=== PATIENT | male | born 1955 | race Caucasian/White ===

== ENCOUNTER 2018-06-10 13:03 | Inpatient (IN) ==
--- NOTE | 2018-06-10 13:24 | Emergency Department Note ---
Disposition Clinical Impression: Atrial fibrillation with rapid ventricular response, Pulmonary edema Congestive heart failure Qualifiers: Heart failure type: unspecified Heart failure chronicity: unspecified Qualified Code(s): I50.9 - Heart failure, unspecified Ascites Qualifiers: Ascites type: other type Qualified Code(s): R18.8 - Other ascites Hepatic cirrhosis Qualifiers: Hepatic cirrhosis type: other cirrhosis Qualified Code(s): K74.69 - Other cirrhosis of liver Disposition: Admitted As Inpatient Condition: Fair Referrals: Chhaya Avila CNP [Primary Care Provider] - Forms: ED Satisfaction Letter Time of Disposition: 15:02 General Adult HPI - General Chief complaint: ED Shortness of Breath/Dyspnea Stated complaint: Fluid retention,SHERWIN Time Seen by Provider: 06/10/18 13:17 Nursing Notes Reviewed: Yes Vital Signs Reviewed: Yes - History of Present Illness HPI Narrative: The patient is a 62 year old male with history of CHF, atrial fibrillation, and COPD who presented with shortness of breath. He also has dry cough for 3 weeks, abdominal swelling, bilateral scrotal swelling, and bilateral lower extremity swelling. The patient stated 4 weeks ago he noticed increased shortness of breath and diffuse swelling that improved after receiving medication through an IV. For the past week he noticed return of his shortness of breath and diffuse swelling with acute worsening the past few days. He called his PCP 3 days ago who doubled his home Lasix medication but this has not improved his symptoms. He takes Eliquis due to atrial fibrillation. He also reported diffuse itching and some confusion recently. He denied orthopnea, chest pain, fever, chills, vomiting, hemoptysis, hematochezia, melena, history of DVT or PE. He has had 2 strokes in the past and has a history of sleep apnea not compliant with CPAP use. Denied cardiac stents and previous catheterization was normal. Denied liver problems or renal problems. He is on 2L oxygen by nasal cannula at home. He is a current everyday smoker. He did not use his nebulizer today. PMH: A. Fib anticoagulated on Eliquis. CVA with no chronic deficit. [place]APARRO noncompliant with CPAP. CAD with ACS, no stents. COPD with chronic respiratory failure on 2L NC continuous and home nebs. Habits: Current everyday smoker. 35yr history: appx 33yrs at 2ppd, 2-3yrs at 1/ 2ppd. ROS: Positive: As above Negative: Fever, chills, nausea, vomiting, chest pains, palpitations, diaphoresis. No history of hepatic disease. No diarrhea, constipation, melena , hematochezia, hemoptysis. Pain Scale: 0 - Related Data Allergies Allergy/AdvReac Type Severity Reaction Status Date / Time No Known Allergies Allergy Verified 05/21/17 08:11 All systems ED: reviewed and negative except as stated. Review of Systems: As Per HPI Physical Exam Vital Signs Reviewed General: Patient is alert, oriented, and in mild distress-he is tachycardic, appears to be in mild respiratory distress.. Head: atraumatic, normocephalic Eye: normal appearance, no scleral icterus, no conjunctival injection ENT: mucous membranes moist, normal external ear exam Neck: normal inspection, trachea midline, full ROM Chest: normal inspection, symmetric chest rise Respiratory: Poor respiratory effort. Prolonged expiratory phase. Bilateral breath sounds are diminished right greater than left, diffuse quiet wheeze throughout. No crackles or rhonchi. Cardiovascular: Regular rate and rhythm. No clicks, rubs, gallops, or murmors. Normal heart sounds. Abdomen: Bowel sounds present normoactive. Abdomen is tense, distended, nontender. Abdominal palpation worsens his dyspnea. Musculoskeletal: Spontaneously moving all extremities. Skin: warm, dry, intact. Neuro: Alert and oriented x4. Sensation light touch intact. Psych: Patient's affect is appropriate for situation. Course Course Narrative: Echocardiogram 03/04/18: EV/EV echocardiogram Impressions: LVEF 40-45%. Many LV segment were not well visualized. Grossly, LV function appeared to demosntrate mild global hypokinesis. Mild concentric left ventricular hypertrophy. Indeterminate diastolic function. Right ventricle was not well visualized. Grossly, it demonstrates normal function. No evidence of pulmonary hypertension identified. No obvious significant valvular dysfunction. Future studies should be completed with contrast enhancement. RUQ US 06/02/18: US/US abdomen limited IMPRESSION: 1. Cholelithiasis. No clear evidence for acute cholecystitis. 2. Moderate volume ascites. 3. Splenomegaly. Patient is A. fib RVR with a rate of 160s to 170s. Will give 15 mg Cardizem bolus followed by drip. Will CT abdomen pelvis without contrast. Chest x-ray. Lab workup. Anticipate admission. EKG shows atrial for relation with RVR. Rate of 159. No apparent acute ischemic changes however this is obscured by the patient's tachycardic rate. Will attempt rate control and reassess. Cardizem 15mg IV bolus with follow-up drip. Chest x-ray is consistent with pulmonary edema likely secondary to CHF. Will provide Lasix 40 mg IV. We will hold on vasodilators at this time given he is currently on Cardizem for A. fib RVR. Discussed the patient with the admitting hospitalist, Dr. Nicolas, who excessive patient for A. fib RVR, CHF, pulmonary edema, cirrhosis, ascites. We discussed the patient will likely need IR paracentesis. No concern for SBP at this time. Patient is afebrile. EKG dated 06/10/2018 at 13:27 interpreted as atrial fibrillation with rapid ventricular rate; rate of 159. QTC 472. Right axis. Nonspecific ST-T changes. Compared to previous EKG dated 08/01/2011 which was sinus rhythm. Chest X-Ray 06/10/18 13:30 IMPRESSION: Cardiomegaly with interstitial edema. D/ / Gi Zhang MD / Gi Zhang MD Interpreting Provider: Gi Zhang MD Abdomen/Pelvis CT 06/10/18 13:38 IMPRESSION: 1. Small bilateral pleural effusions with lower lobe atelectasis. 2. Ascites. 3. Cirrhosis with splenomegaly. Portal hypertension. 4. Diverticulosis. D/ / Fernando Cook MD / Fernando Cook MD Interpreting Provider: Fernando Cook MD Vital Signs Temperature 99.4 F 06/10/18 13:16 Pulse Rate 88 06/10/18 13:16 Respiratory Rate 22 06/10/18 13:16 Blood Pressure 136/84 06/10/18 13:16 O2 Sat by Pulse Oximetry 87 06/10/18 13:16 Temperature 99.4 F 09/13/18 13:23 Pulse Rate 122 06/10/18 14:15 Respiratory Rate 24 06/10/18 14:15 Blood Pressure 139/109 06/10/18 14:15 O2 Sat by Pulse Oximetry 92 06/10/18 14:15 Oxygen Delivery Oxygen Delivery Nasal Cannula Medical Decision Making - Lab Data Result diagrams: 06/10/18 14:01 06/10/18 14:01 Lab Results 06/10/18 06/10/18 06/10/18 Range/Units 14:01 14:01 14:01 WBC 7.7 (4.3-11.1) K/mcL RBC 6.50 H (4.19-5.50) M/mcL Hgb 15.5 (12.9-16.9) g/dL Hct 52.8 H (37.5-50.1) % MCV 81.2 L (83.0-100.0) fL MCH 23.8 L (28.0-33.3) pg MCHC 29.4 L (31.6-35.5) g/dL RDW 19.7 H (11.5-14.5) % Plt Count 163 (140-400) K/mcL MPV 11.6 (9.4-12.4) fL Immature Gran % 0.3 (0-4) % Seg Neutrophils % 70.3 % Lymphocytes % 14.5 % Monocytes % 9.0 % Eosinophils % 4.7 % Basophils % 1.2 % Neutrophils # 5.4 (1.6-8.9) K/mcL Lymphocytes # 1.1 (0.6-4.6) K/mcL Monocytes # 0.7 (0.0-1.3) K/mcL Eosinophils # 0.4 (0.0-0.6) K/mcL Basophils # 0.1 (0.0-0.2) K/mcL Platelet Estimate Normal (Normal) Immature Plt Fraction 10.2 H (1.1-6.1) % PT (9.4-12.1) Seconds INR Sodium 141 (136-145) mEq/L Potassium 4.1 (3.5-5.1) mEq/L Chloride 101 (98-107) mEq/L Carbon Dioxide 35 H (23-29) mEq/L BUN 13 (8-23) mg/dL Creatinine 0.84 (0.70-1.30) mg/dL Est GFR ( Amer) > 60 (> 60) Est GFR (Non-Af Amer) > 60 (> 60) BUN/Creatinine Ratio 15 (6-26) Glucose 118 H (70-105) mg/dL Calculated Osmolality 293 (280-300) Calcium 9.5 (8.6-10.3) mg/dL Magnesium 1.4 L (1.6-2.6) mg/dL Total Bilirubin 1.7 H (0.3-1.0) mg/dL AST 10 L (13-39) Units/L ALT 5 L (7-52) Units/L Alkaline Phosphatase 83 (34-104) Units/L Ammonia (16-53) mcmol/L Troponin I (< 0.04) ng/mL B-Natriuretic Peptide 405 H (Less than 100) pg/mL Serum Total Protein 5.9 L (6.4-8.9) g/dL Albumin 3.9 (3.5-5.7) g/dL Globulin 2.0 L (2.4-3.5) g/dL Albumin/Globulin Ratio 2.0 (1.1-2.2) TSH (0.340-5.600) mcIU/mL 06/10/18 06/10/18 06/10/18 Range/Units 14:01 14:01 14:01 WBC (4.3-11.1) K/mcL RBC (4.19-5.50) M/mcL Hgb (12.9-16.9) g/dL Hct (37.5-50.1) % MCV (83.0-100.0) fL MCH (28.0-33.3) pg MCHC (31.6-35.5) g/dL RDW (11.5-14.5) % Plt Count (140-400) K/mcL MPV (9.4-12.4) fL Immature Gran % (0-4) % Seg Neutrophils % % Lymphocytes % % Monocytes % % Eosinophils % % Basophils % % Neutrophils # (1.6-8.9) K/mcL Lymphocytes # (0.6-4.6) K/mcL Monocytes # (0.0-1.3) K/mcL Eosinophils # (0.0-0.6) K/mcL Basophils # (0.0-0.2) K/mcL Platelet Estimate (Normal) Immature Plt Fraction (1.1-6.1) % PT 22.0 H (9.4-12.1) Seconds INR 2.0 Sodium (136-145) mEq/L Potassium (3.5-5.1) mEq/L Chloride (98-107) mEq/L Carbon Dioxide (23-29) mEq/L BUN (8-23) mg/dL Creatinine (0.70-1.30) mg/dL Est GFR ( Amer) (> 60) Est GFR (Non-Af Amer) (> 60) BUN/Creatinine Ratio (6-26) Glucose (70-105) mg/dL Calculated Osmolality (280-300) Calcium (8.6-10.3) mg/dL Magnesium (1.6-2.6) mg/dL Total Bilirubin (0.3-1.0) mg/dL AST (13-39) Units/L ALT (7-52) Units/L Alkaline Phosphatase (34-104) Units/L Ammonia (16-53) mcmol/L Troponin I < 0.03 (< 0.04) ng/mL B-Natriuretic Peptide (Less than 100) pg/mL Serum Total Protein (6.4-8.9) g/dL Albumin (3.5-5.7) g/dL Globulin (2.4-3.5) g/dL Albumin/Globulin Ratio (1.1-2.2) TSH 1.706 (0.340-5.600) mcIU/mL 06/10/18 Range/Units 14:01 WBC (4.3-11.1) K/mcL RBC (4.19-5.50) M/mcL Hgb (12.9-16.9) g/dL Hct (37.5-50.1) % MCV (83.0-100.0) fL MCH (28.0-33.3) pg MCHC (31.6-35.5) g/dL RDW (11.5-14.5) % Plt Count (140-400) K/mcL MPV (9.4-12.4) fL Immature Gran % (0-4) % Seg Neutrophils % % Lymphocytes % % Monocytes % % Eosinophils % % Basophils % % Neutrophils # (1.6-8.9) K/mcL Lymphocytes # (0.6-4.6) K/mcL Monocytes # (0.0-1.3) K/mcL Eosinophils # (0.0-0.6) K/mcL Basophils # (0.0-0.2) K/mcL Platelet Estimate (Normal) Immature Plt Fraction (1.1-6.1) % PT (9.4-12.1) Seconds INR Sodium (136-145) mEq/L Potassium (3.5-5.1) mEq/L Chloride (98-107) mEq/L Carbon Dioxide (23-29) mEq/L BUN (8-23) mg/dL Creatinine (0.70-1.30) mg/dL Est GFR ( Amer) (> 60) Est GFR (Non-Af Amer) (> 60) BUN/Creatinine Ratio (6-26) Glucose (70-105) mg/dL Calculated Osmolality (280-300) Calcium (8.6-10.3) mg/dL Magnesium (1.6-2.6) mg/dL Total Bilirubin (0.3-1.0) mg/dL AST (13-39) Units/L ALT (7-52) Units/L Alkaline Phosphatase (34-104) Units/L Ammonia 47 (16-53) mcmol/L Troponin I (< 0.04) ng/mL B-Natriuretic Peptide (Less than 100) pg/mL Serum Total Protein (6.4-8.9) g/dL Albumin (3.5-5.7) g/dL Globulin (2.4-3.5) g/dL Albumin/Globulin Ratio (1.1-2.2) TSH (0.340-5.600) mcIU/mL
--- NOTE | 2018-06-10 13:34 | Emergency Department Note ---
Disposition Clinical Impression: Ascites, Hepatic cirrhosis, Atrial fibrillation with rapid ventricular response , Pulmonary edema, Congestive heart failure Disposition: Admitted As Inpatient Condition: Fair General Adult HPI - General Chief complaint: ED Shortness of Breath/Dyspnea Stated complaint: Fluid retention,SHERWIN Time Seen by Provider: 06/10/18 13:17 - History of Present Illness Pain Scale: 0 - Related Data Home Medications Medication Instructions Recorded Confirmed Apixaban [Eliquis] 5 mg PO BID 06/10/18 06/10/18 Aspirin [Lo-Dose Aspirin EC] 81 mg PO DAILY 06/10/18 06/10/18 Atorvastatin [Lipitor] 40 mg PO HS 06/10/18 06/10/18 Furosemide [Lasix] 20 mg PO DAILY 06/10/18 06/10/18 Lisinopril [Zestril] 5 mg PO DAILY 06/10/18 06/10/18 Magnesium Oxide [Mag-Ox] 400 mg PO DAILY 06/10/18 06/10/18 Metoprolol Succinate [Toprol Xl] 100 mg PO DAILY 06/10/18 06/10/18 Omeprazole [PriLOSEC] 20 mg PO DAILY 06/10/18 06/10/18 Potassium Chloride [Klor-Con 10] 10 meq PO DAILY 06/10/18 06/10/18 Sennosides [Senna] 8.6 mg PO DAILY 06/10/18 06/10/18 metFORMIN [Glucophage] 500 mg PO BIDWM 06/10/18 06/10/18 Allergies Allergy/AdvReac Type Severity Reaction Status Date / Time No Known Allergies Allergy Verified 06/10/18 15:40 Course Vital Signs Temperature 99.4 F 06/10/18 13:16 Pulse Rate 88 06/10/18 13:16 Respiratory Rate 22 06/10/18 13:16 Blood Pressure 136/84 06/10/18 13:16 O2 Sat by Pulse Oximetry 87 06/10/18 13:16 Temperature 99.4 F 06/10/18 13:23 Pulse Rate 130 06/10/18 17:45 Respiratory Rate 24 06/10/18 17:45 Blood Pressure 142/119 06/10/18 17:45 O2 Sat by Pulse Oximetry 92 06/10/18 17:45 Oxygen Delivery Oxygen Delivery Nasal Cannula Medical Decision Making - Lab Data Result diagrams: 06/10/18 14:06/10/18 14:01 Lab Results 06/10/18 06/10/18 06/10/18 Range/Units 14:01 14:01 14:01 WBC 7.7 (4.3-11.1) K/mcL RBC 6.50 H (4.19-5.50) M/mcL Hgb 15.5 (12.9-16.9) g/dL Hct 52.8 H (37.5-50.1) % MCV 81.2 L (83.0-100.0) fL MCH 23.8 L (28.0-33.3) pg MCHC 29.4 L (31.6-35.5) g/dL RDW 19.7 H (11.5-14.5) % Plt Count 163 (140-400) K/mcL MPV 11.6 (9.4-12.4) fL Immature Gran % 0.3 (0-4) % Seg Neutrophils % 70.3 % Lymphocytes % 14.5 % Monocytes % 9.0 % Eosinophils % 4.7 % Basophils % 1.2 % Neutrophils # 5.4 (1.6-8.9) K/mcL Lymphocytes # 1.1 (0.6-4.6) K/mcL Monocytes # 0.7 (0.0-1.3) K/mcL Eosinophils # 0.4 (0.0-0.6) K/mcL Basophils # 0.1 (0.0-0.2) K/mcL Platelet Estimate Normal (Normal) Immature Plt Fraction 10.2 H (1.1-6.1) % PT (9.4-12.1) Seconds INR Sodium 141 (136-145) mEq/L Potassium 4.1 (3.5-5.1) mEq/L Chloride 101 (98-107) mEq/L Carbon Dioxide 35 H (23-29) mEq/L BUN 13 (8-23) mg/dL Creatinine 0.84 (0.70-1.30) mg/dL Est GFR ( Amer) > 60 (> 60) Est GFR (Non-Af Amer) > 60 (> 60) BUN/Creatinine Ratio 15 (6-26) Glucose 118 H (70-105) mg/dL Calculated Osmolality 293 (280-300) Calcium 9.5 (8.6-10.3) mg/dL Magnesium 1.4 L (1.6-2.6) mg/dL Total Bilirubin 1.7 H (0.3-1.0) mg/dL AST 10 L (13-39) Units/L ALT 5 L (7-52) Units/L Alkaline Phosphatase 83 (34-104) Units/L Ammonia (16-53) mcmol/L Troponin I (< 0.04) ng/mL B-Natriuretic Peptide 405 H (Less than 100) pg/mL Serum Total Protein 5.9 L (6.4-8.9) g/dL Albumin 3.9 (3.5-5.7) g/dL Globulin 2.0 L (2.4-3.5) g/dL Albumin/Globulin Ratio 2.0 (1.1-2.2) TSH (0.340-5.600) mcIU/mL Hep Bs Antigen (Nonreactive) 06/10/18 06/10/18 06/10/18 Range/Units 14:01 14:01 14:01 WBC (4.3-11.1) K/mcL RBC (4.19-5.50) M/mcL Hgb (12.9-16.9) g/dL Hct (37.5-50.1) % MCV (83.0-100.0) fL MCH (28.0-33.3) pg MCHC (31.6-35.5) g/dL RDW (11.5-14.5) % Plt Count (140-400) K/mcL MPV (9.4-12.4) fL Immature Gran % (0-4) % Seg Neutrophils % % Lymphocytes % % Monocytes % % Eosinophils % % Basophils % % Neutrophils # (1.6-8.9) K/mcL Lymphocytes # (0.6-4.6) K/mcL Monocytes # (0.0-1.3) K/mcL Eosinophils # (0.0-0.6) K/mcL Basophils # (0.0-0.2) K/mcL Platelet Estimate (Normal) Immature Plt Fraction (1.1-6.1) % PT 22.0 H (9.4-12.1) Seconds INR 2.0 Sodium (136-145) mEq/L Potassium (3.5-5.1) mEq/L Chloride (98-107) mEq/L Carbon Dioxide (23-29) mEq/L BUN (8-23) mg/dL Creatinine (0.70-1.30) mg/dL Est GFR ( Amer) (> 60) Est GFR (Non-Af Amer) (> 60) BUN/Creatinine Ratio (6-26) Glucose (70-105) mg/dL Calculated Osmolality (280-300) Calcium (8.6-10.3) mg/dL Magnesium (1.6-2.6) mg/dL Total Bilirubin (0.3-1.0) mg/dL AST (13-39) Units/L ALT (7-52) Units/L Alkaline Phosphatase (34-104) Units/L Ammonia (16-53) mcmol/L Troponin I < 0.03 (< 0.04) ng/mL B-Natriuretic Peptide (Less than 100) pg/mL Serum Total Protein (6.4-8.9) g/dL Albumin (3.5-5.7) g/dL Globulin (2.4-3.5) g/dL Albumin/Globulin Ratio (1.1-2.2) TSH 1.706 (0.340-5.600) mcIU/mL Hep Bs Antigen (Nonreactive) 06/10/18 06/10/18 Range/Units 14:01 17:11 WBC (4.3-11.1) K/mcL RBC (4.19-5.50) M/mcL Hgb (12.9-16.9) g/dL Hct (37.5-50.1) % MCV (83.0-100.0) fL MCH (28.0-33.3) pg MCHC (31.6-35.5) g/dL RDW (11.5-14.5) % Plt Count (140-400) K/mcL MPV (9.4-12.4) fL Immature Gran % (0-4) % Seg Neutrophils % % Lymphocytes % % Monocytes % % Eosinophils % % Basophils % % Neutrophils # (1.6-8.9) K/mcL Lymphocytes # (0.6-4.6) K/mcL Monocytes # (0.0-1.3) K/mcL Eosinophils # (0.0-0.6) K/mcL Basophils # (0.0-0.2) K/mcL Platelet Estimate (Normal) Immature Plt Fraction (1.1-6.1) % PT (9.4-12.1) Seconds INR Sodium (136-145) mEq/L Potassium (3.5-5.1) mEq/L Chloride (98-107) mEq/L Carbon Dioxide (23-29) mEq/L BUN (8-23) mg/dL Creatinine (0.70-1.30) mg/dL Est GFR ( Amer) (> 60) Est GFR (Non-Af Amer) (> 60) BUN/Creatinine Ratio (6-26) Glucose (70-105) mg/dL Calculated Osmolality (280-300) Calcium (8.6-10.3) mg/dL Magnesium (1.6-2.6) mg/dL Total Bilirubin (0.3-1.0) mg/dL AST (13-39) Units/L ALT (7-52) Units/L Alkaline Phosphatase (34-104) Units/L Ammonia 47 (16-53) mcmol/L Troponin I (< 0.04) ng/mL B-Natriuretic Peptide (Less than 100) pg/mL Serum Total Protein (6.4-8.9) g/dL Albumin (3.5-5.7) g/dL Globulin (2.4-3.5) g/dL Albumin/Globulin Ratio (1.1-2.2) TSH (0.340-5.600) mcIU/mL Hep Bs Antigen Nonreactive (Nonreactive) Critical Care Time Critical Care Time: Yes Total Critical Care Time: 30 Attestation: The high probability of a clinically significant, sudden or life threatening deterioration of the [] system(s) required my full and direct attention, intervention and personal management. The aggregate critical care time was [] minutes. This time is in addition to time spent performing reported procedures but includes the following: [] Data Review and interpretation [] Patient assessment and monitoring of vital signs [] Documentation [] Medication orders and management Attestation Statement - Attestation Attestation: I examined this patient and my medical decision-making was reviewed with the Resident Physician. I agree with the documented findings, disposition and treatment plan as described except to the extent set forth below. [id number] time provided Patient presents the emergency department complaining of increased abdominal girth, water retention, dyspnea. His abdomen is distended on exam. His heart rate is 150 which is irregularly irregular-he states he has a known history of atrial fibrillation for which he takes Eliquis
--- NOTE | 2018-06-10 13:53 | Emergency Department Note ---
Disposition Clinical Impression: Atrial fibrillation with rapid ventricular response, Pulmonary edema Ascites Qualifiers: Ascites type: other type Qualified Code(s): R18.8 - Other ascites Hepatic cirrhosis Qualifiers: Hepatic cirrhosis type: other cirrhosis Qualified Code(s): K74.69 - Other cirrhosis of liver Congestive heart failure Qualifiers: Heart failure type: unspecified Heart failure chronicity: unspecified Qualified Code(s): I50.9 - Heart failure, unspecified Disposition: Admitted As Inpatient Condition: Fair Referrals: Chhaya Avila CNP [Primary Care Provider] - Forms: ED Satisfaction Letter General Adult HPI - General Chief complaint: ED Shortness of Breath/Dyspnea Stated complaint: Fluid retention,SHERWIN Time Seen by Provider: 06/10/18 13:17 Source: patient Mode of arrival: private vehicle Limitations: no limitations Nursing Notes Reviewed: Yes Vital Signs Reviewed: Yes - History of Present Illness HPI Narrative: The patient is a 62 year old male with history of CHF, atrial fibrillation, and COPD who presented with shortness of breath. He also has dry cough for 3 weeks, abdominal swelling, bilateral scrotal swelling, and bilateral lower extremity swelling. The patient stated 4 weeks ago he noticed increased shortness of breath and diffuse swelling that improved after receiving medication through an IV. For the past week he noticed return of his shortness of breath and diffuse swelling with acute worsening the past few days. He called his PCP 3 days ago who doubled his home Lasix medication but this has not improved his symptoms. He takes Eliquis due to atrial fibrillation. He also reported diffuse itching and some confusion recently. He denied orthopnea, chest pain, fever, chills, vomiting, hemoptysis, hematochezia, melena, history of DVT or PE. He has had 2 strokes in the past and has a history of sleep apnea not compliant with CPAP use. Denied cardiac stents and previous catheterization was normal. Denied liver problems or renal problems. He is on 2L oxygen by nasal cannula at home. He is a current everyday smoker. He did not use his nebulizer today. Pain Scale: 0 - Related Data Home Medications Medication Instructions Recorded Confirmed Apixaban [Eliquis] 5 mg PO BID 06/10/18 06/10/18 Aspirin [Lo-Dose Aspirin EC] 81 mg PO DAILY 06/10/18 06/10/18 Atorvastatin [Lipitor] 40 mg PO HS 06/10/18 06/10/18 Furosemide [Lasix] 20 mg PO DAILY 06/10/18 06/10/18 Lisinopril [Zestril] 5 mg PO DAILY 06/10/18 06/10/18 Magnesium Oxide [Mag-Ox] 400 mg PO DAILY 06/10/18 06/10/18 Metoprolol Succinate [Toprol Xl] 100 mg PO DAILY 06/10/18 06/10/18 Omeprazole [PriLOSEC] 20 mg PO DAILY 06/10/18 06/10/18 Potassium Chloride [Klor-Con 10] 10 meq PO DAILY 06/10/18 06/10/18 Sennosides [Senna] 8.6 mg PO DAILY 06/10/18 06/10/18 metFORMIN [Glucophage] 500 mg PO BIDWM 06/10/18 06/10/18 Allergies Allergy/AdvReac Type Severity Reaction Status Date / Time No Known Allergies Allergy Verified 06/10/18 15:40 Review of Systems: As Per HPI Constitutional: Denies: fever, chills ENT ED: Denies: epistaxis Cardiovascular: Reports: dyspnea on exertion, edema. Denies: chest pain, orthopnea Respiratory: Reports: cough, dyspnea, wheezes. Denies: hemoptysis, stridor, sputum production Gastrointestinal: Reports: abdominal pain (diffuse), nausea. Denies: vomiting, diarrhea, constipation, hematemesis, melena, hematochezia Genitourinary: Reports: other (bilateral scrotal swelling). Denies: dysuria Integumentary: Reports: abrasion (scratches on abdomen and right lower leg), pruritus Neurological: Reports: confusion. Denies: headache Endocrine: Reports: fatigue Past Medical History - Past Medical History Attestation: Yes The following information was validated with the patient. Source: patient Medical history: Reports: atrial fibrillation, CHF, COPD, CVA, diabetes, hyperlipidemia, hypertension. Denies: DVT, hepatitis, liver disease, malignancy , pulmonary embolus Surgical history: Reports: other (heart cath) Psychiatric history: Reports: no psych history - Social History Smoking Status: Current every day smoker Smokeless Tobacco Status: No Alcohol use: Reports: none Drug use: Reports: none Physical Exam - General Limitations: no limitations General appearance: alert, in distress, obese - Head Head exam: atraumatic, normocephalic - Eye Eye exam: Present: normal appearance, other (conjunctival pallor). Absent: scleral icterus - Neck Neck exam: Present: normal inspection, full ROM, trachea midline - Chest Chest inspection: Present: normal inspection, symmetric chest wall rise - Respiratory Respiratory exam: Present: respiratory distress, wheezes, accessory muscle use, other (decreased breath sounds in left lower lobe. Diffuse wheezing bilaterally and decreased aeration throughout. ) - Cardiovascular Cardiovascular exam: Present: tachycardia, irregular rhythm - Abdominal Exam Abdominal exam: Present: distention, normal bowel sounds, ascites, other ( excoriations over abdominal wall with erythema extending over 1/3 anterior abdomen). Absent: guarding, rebound - Male exam: Present: scrotal swelling - Extremities Exam Extremities exam: Present: pedal edema (2+ pitting edema in bilateral lower extremities. ), calf tenderness (bilateral) - Neurological Exam Neurological exam: Present: alert, oriented X3 - Psychiatric Psychiatric exam: Present: normal affect, normal mood - Skin Skin exam: Present: warm, dry, other (excoriations on posterior right lower leg , tender on palpation ) Course Vital Signs Temperature 99.4 F 06/10/18 13:16 Pulse Rate 88 06/10/18 13:16 Respiratory Rate 22 06/10/18 13:16 Blood Pressure 136/84 06/10/18 13:16 O2 Sat by Pulse Oximetry 87 06/10/18 13:16 Temperature 99.4 F 06/10/18 13:23 Pulse Rate 122 06/10/18 14:15 Respiratory Rate 24 06/10/18 14:15 Blood Pressure 139/109 06/10/18 14:15 O2 Sat by Pulse Oximetry 92 06/10/18 14:15 Oxygen Delivery Oxygen Delivery Nasal Cannula Medical Decision Making - Lab Data Result diagrams: 06/10/18 14:01 06/10/18 14:01 Lab Results 06/10/18 06/10/18 06/10/18 Range/Units 14:01 14:01 14:01 WBC 7.7 (4.3-11.1) K/mcL RBC 6.50 H (4.19-5.50) M/mcL Hgb 15.5 (12.9-16.9) g/dL Hct 52.8 H (37.5-50.1) % MCV 81.2 L (83.0-100.0) fL MCH 23.8 L (28.0-33.3) pg MCHC 29.4 L (31.6-35.5) g/dL RDW 19.7 H (11.5-14.5) % Plt Count 163 (140-400) K/mcL MPV 11.6 (9.4-12.4) fL Immature Gran % 0.3 (0-4) % Seg Neutrophils % 70.3 % Lymphocytes % 14.5 % Monocytes % 9.0 % Eosinophils % 4.7 % Basophils % 1.2 % Neutrophils # 5.4 (1.6-8.9) K/mcL Lymphocytes # 1.1 (0.6-4.6) K/mcL Monocytes # 0.7 (0.0-1.3) K/mcL Eosinophils # 0.4 (0.0-0.6) K/mcL Basophils # 0.1 (0.0-0.2) K/mcL Platelet Estimate Normal (Normal) Immature Plt Fraction 10.2 H (1.1-6.1) % PT (9.4-12.1) Seconds INR Sodium 141 (136-145) mEq/L Potassium 4.1 (3.5-5.1) mEq/L Chloride 101 (98-107) mEq/L Carbon Dioxide 35 H (23-29) mEq/L BUN 13 (8-23) mg/dL Creatinine 0.84 (0.70-1.30) mg/dL Est GFR ( Amer) > 60 (> 60) Est GFR (Non-Af Amer) > 60 (> 60) BUN/Creatinine Ratio 15 (6-26) Glucose 118 H (70-105) mg/dL Calculated Osmolality 293 (280-300) Calcium 9.5 (8.6-10.3) mg/dL Magnesium 1.4 L (1.6-2.6) mg/dL Total Bilirubin 1.7 H (0.3-1.0) mg/dL AST 10 L (13-39) Units/L ALT 5 L (7-52) Units/L Alkaline Phosphatase 83 (34-104) Units/L Ammonia (16-53) mcmol/L Troponin I (< 0.04) ng/mL B-Natriuretic Peptide 405 H (Less than 100) pg/mL Serum Total Protein 5.9 L (6.4-8.9) g/dL Albumin 3.9 (3.5-5.7) g/dL Globulin 2.0 L (2.4-3.5) g/dL Albumin/Globulin Ratio 2.0 (1.1-2.2) TSH (0.340-5.600) mcIU/mL 06/10/18 06/10/18 06/10/18 Range/Units 14:01 14:01 14:01 WBC (4.3-11.1) K/mcL RBC (4.19-5.50) M/mcL Hgb (12.9-16.9) g/dL Hct (37.5-50.1) % MCV (83.0-100.0) fL MCH (28.0-33.3) pg MCHC (31.6-35.5) g/dL RDW (11.5-14.5) % Plt Count (140-400) K/mcL MPV (9.4-12.4) fL Immature Gran % (0-4) % Seg Neutrophils % % Lymphocytes % % Monocytes % % Eosinophils % % Basophils % % Neutrophils # (1.6-8.9) K/mcL Lymphocytes # (0.6-4.6) K/mcL Monocytes # (0.0-1.3) K/mcL Eosinophils # (0.0-0.6) K/mcL Basophils # (0.0-0.2) K/mcL Platelet Estimate (Normal) Immature Plt Fraction (1.1-6.1) % PT 22.0 H (9.4-12.1) Seconds INR 2.0 Sodium (136-145) mEq/L Potassium (3.5-5.1) mEq/L Chloride (98-107) mEq/L Carbon Dioxide (23-29) mEq/L BUN (8-23) mg/dL Creatinine (0.70-1.30) mg/dL Est GFR ( Amer) (> 60) Est GFR (Non-Af Amer) (> 60) BUN/Creatinine Ratio (6-26) Glucose (70-105) mg/dL Calculated Osmolality (280-300) Calcium (8.6-10.3) mg/dL Magnesium (1.6-2.6) mg/dL Total Bilirubin (0.3-1.0) mg/dL AST (13-39) Units/L ALT (7-52) Units/L Alkaline Phosphatase (34-104) Units/L Ammonia (16-53) mcmol/L Troponin I < 0.03 (< 0.04) ng/mL B-Natriuretic Peptide (Less than 100) pg/mL Serum Total Protein (6.4-8.9) g/dL Albumin (3.5-5.7) g/dL Globulin (2.4-3.5) g/dL Albumin/Globulin Ratio (1.1-2.2) TSH 1.706 (0.340-5.600) mcIU/mL 06/10/18 Range/Units 14:01 WBC (4.3-11.1) K/mcL RBC (4.19-5.50) M/mcL Hgb (12.9-16.9) g/dL Hct (37.5-50.1) % MCV (83.0-100.0) fL MCH (28.0-33.3) pg MCHC (31.6-35.5) g/dL RDW (11.5-14.5) % Plt Count (140-400) K/mcL MPV (9.4-12.4) fL Immature Gran % (0-4) % Seg Neutrophils % % Lymphocytes % % Monocytes % % Eosinophils % % Basophils % % Neutrophils # (1.6-8.9) K/mcL Lymphocytes # (0.6-4.6) K/mcL Monocytes # (0.0-1.3) K/mcL Eosinophils # (0.0-0.6) K/mcL Basophils # (0.0-0.2) K/mcL Platelet Estimate (Normal) Immature Plt Fraction (1.1-6.1) % PT (9.4-12.1) Seconds INR Sodium (136-145) mEq/L Potassium (3.5-5.1) mEq/L Chloride (98-107) mEq/L Carbon Dioxide (23-29) mEq/L BUN (8-23) mg/dL Creatinine (0.70-1.30) mg/dL Est GFR ( Amer) (> 60) Est GFR (Non-Af Amer) (> 60) BUN/Creatinine Ratio (6-26) Glucose (70-105) mg/dL Calculated Osmolality (280-300) Calcium (8.6-10.3) mg/dL Magnesium (1.6-2.6) mg/dL Total Bilirubin (0.3-1.0) mg/dL AST (13-39) Units/L ALT (7-52) Units/L Alkaline Phosphatase (34-104) Units/L Ammonia 47 (16-53) mcmol/L Troponin I (< 0.04) ng/mL B-Natriuretic Peptide (Less than 100) pg/mL Serum Total Protein (6.4-8.9) g/dL Albumin (3.5-5.7) g/dL Globulin (2.4-3.5) g/dL Albumin/Globulin Ratio (1.1-2.2) TSH (0.340-5.600) mcIU/mL
[2018-06-10 14:36] LABS: Eosinophils % 4.7 %; Hemoglobin 15.5 g/dL (12.9-16.9); Immature Granulocytes % 0.3 % (0-4); Mean Corpuscular HGB Conc 29.4 g/dL (31.6-35.5); Mean Corpuscular Volume 81.2 fL (83.0-100.0)
[2018-06-10 14:38] LABS: Basophils # 0.1 K/mcL (0.0-0.2); Basophils % 1.2 %; Eosinophils # 0.4 K/mcL (0.0-0.6); Hematocrit 52.8 % (37.5-50.1); Immature Platelets 10.2 % (1.1-6.1); Lymphocytes # 1.1 K/mcL (0.6-4.6); Lymphocytes % 14.5 %; Mean Corpuscular Hemoglobin 23.8 pg (28.0-33.3); Mean Platelet Volume 11.6 fL (9.4-12.4); Monocytes # 0.7 K/mcL (0.0-1.3); Neutrophils # 5.4 K/mcL (1.6-8.9); Platelet Count 163 K/mcL (140-400); Red Cell Distribution Width 19.7 % (11.5-14.5); Segmented Neutrophils % 70.3 %
[2018-06-10 14:41] LABS: Alanine Aminotransferase 5 Units/L (7-52); Albumin 3.9 g/dL (3.5-5.7); Alkaline Phosphatase 83 Units/L (34-104); Aspartate Amino Transferase 10 Units/L (13-39); BUN/Creatinine Ratio 15 (6-26); Bilirubin,Total 1.7 mg/dL (0.3-1.0); Blood Urea Nitrogen 13 mg/dL (8-23); Calcium 9.5 mg/dL (8.6-10.3); Carbon Dioxide 35 mEq/L (23-29); Chloride 101 mEq/L (98-107); Glucose 118 mg/dL (70-105); Magnesium 1.4 mg/dL (1.6-2.6); Osmolality,Calculated 293 (280-300); Potassium 4.1 mEq/L (3.5-5.1); Sodium 141 mEq/L (136-145); Total Protein 5.9 g/dL (6.4-8.9); eGFR For Non-African Americans > 60 (> 60)
[2018-06-10 14:44] LABS: Platelet Estimate Normal (Normal)
[2018-06-10] MEDS ORDERED: Furosemide 40 MG/4 ML VIAL IVP ONE (15:01)
--- NOTE | 2018-06-10 16:51 | Internal Med History&Physical ---
Date of Encounter: 06/10/18 Time of Encounter: 16:00 Internal Medicine - H&P: HPI Chief complaint: Increased abdominal girth and shortness of breath Admitted From: Home Plans for Post Hospital Care: Home History of present illness: Patient is a 62-year-old male with past medical history significant for nonischemic cardiomyopathy/AICD, chronic kidney disease stage III, O2 dependent COPD (2 L), hypertension, hyperlipidemia and diabetes who presents to the ER on 06/10/18 due to abdominal swelling and shortness of breath. Patient reports a two-month history of increased abdominal girth which has worsened in the last month. In addition patient also reports of shortness of breath but has also worsened in the last month. Patient also reports of decreased by mouth intake due to abdominal uncomfortableness and not able to lie down to sleep at night due to increased abdominal girth. Patient decided to come to the ER for evaluation. In the ER, patient was found to have elevated total bilirubin of 1.7. Abdominal/pelvis CT showed ascites with cirrhosis and splenomegaly in addition to portal hypertension. Patient was recently evaluated by primary care provider in the right upper quadrant ultrasound was done on 06/02/18 which showed moderate volume ascites with splenomegaly. In addition patient was also found to be in atrial fibrillation with RVR and was started on Cardizem drip in the ER. Patient was also found to have elevated BNP of 405. Patient had a recent echocardiogram on 03/04/18 which showed LVEF of 40-45% with mild global hypokinesis. Patient will be admitted to the progressive unit for further management. Past Med Surg Social Fam HX - Past Medical History Medical history: atrial fibrillation, CHF, COPD, CVA, diabetes, hyperlipidemia, hypertension Psychiatric history: no psych history - Past Surgical History Surgical History: other (heart cath) Additional surgical history: heart cath, back surgery - Social History Smoking Status: Current every day smoker Smokeless Tobacco Status: No Alcohol use: none Drug use: none - Additional Family History Additional family history: Noncontributory Internal Medicine - H&P: Meds Apixaban [Eliquis] 5 mg PO BID 06/10/18 [History] Aspirin [Lo-Dose Aspirin EC] 81 mg PO DAILY 06/10/18 [History] Atorvastatin [Lipitor] 40 mg PO HS 06/10/18 [History] Furosemide [Lasix] 20 mg PO DAILY 06/10/18 [History] Lisinopril [Zestril] 5 mg PO DAILY 06/10/18 [History] Magnesium Oxide [Mag-Ox] 400 mg PO DAILY 06/10/18 [History] Metoprolol Succinate [Toprol Xl] 100 mg PO DAILY 06/10/18 [History] Omeprazole [PriLOSEC] 20 mg PO DAILY 06/10/18 [History] Potassium Chloride [Klor-Con 10] 10 meq PO DAILY 06/10/18 [History] Sennosides [Senna] 8.6 mg PO DAILY 06/10/18 [History] metFORMIN [Glucophage] 500 mg PO BIDWM 06/10/18 [History] 3 Allergy/AdvReac Type Severity Reaction Status Date / Time No Known Allergies Allergy Verified 06/10/18 15:40 All Systems PM: A 10-system review of systems was performed and is negative for pertinent findings except as documented above in the HPI. - Constitutional Vitals: Temp Pulse Resp BP Pulse Ox 99.4 F 122 24 139/109 92 06/10/18 13:23 06/10/18 14:15 06/10/18 14:15 06/10/18 14:15 06/10/18 14:15 General appearance: Present: A&O X 3, no acute distress Exam: As below - Eye Eye exam: Present: normal appearance - Respiratory Respiratory exam: Present: CTAB, wheezes (Expiratory wheezes). Absent: accessory muscle use, rales, rhonchi - Cardiovascular Cardiovascular exam: Present: +S1, +S2. Absent: diastolic murmur, gallop, RRR ( Irregular regular rhythm), rubs, systolic murmur - GI/Abdominal GI/Abdominal exam: Present: distended, firm - External exam: Present: swelling - Extremities Exam Extremities exam: Present: pedal edema - Neurological Exam Neurological exam: Present: oriented X3 - Psychiatric Psychiatric exam: Present: normal mood - Skin Skin exam: Present: excoriation (Patient with excoriations and erythematous rash over abdomen) Internal Med - H&P Results - Labs CBC & Chem 7: 06/10/18 14:01 06/10/18 14:01 Labs: Short CBC 06/10/18 Range/Units 14:01 WBC 7.7 (4.3-11.1) K/mcL Hgb 15.5 (12.9-16.9) g/dL Hct 52.8 H (37.5-50.1) % Plt Count 163 (140-400) K/mcL Neutrophils # 5.4 (1.6-8.9) K/mcL BMP 06/10/18 14:01 Sodium 141 Potassium 4.1 Chloride 101 Carbon Dioxide 35 H BUN 13 Creatinine 0.84 Glucose 118 H Calcium 9.5 Cardiac Enzymes 06/10/18 Range/Units 14:01 Troponin I < 0.03 (< 0.04) ng/mL Liver Function 06/10/18 Range/Units 14:01 Total Bilirubin 1.7 H (0.3-1.0) mg/dL AST 10 L (13-39) Units/L ALT 5 L (7-52) Units/L Alkaline Phosphatase 83 (34-104) Units/L Albumin 3.9 (3.5-5.7) g/dL - Impressions ITS Impressions Chest X-Ray 06/10/18 13:30 IMPRESSION: Cardiomegaly with interstitial edema. D/ / Gi Zhang MD / Gi Zhang MD Interpreting Provider: Gi Zhang MD Abdomen/Pelvis CT 06/10/18 13:38 IMPRESSION: 1. Small bilateral pleural effusions with lower lobe atelectasis. 2. Ascites. 3. Cirrhosis with splenomegaly. Portal hypertension. 4. Diverticulosis. D/ / 06/10/2018 16:02:00 Fernando Cook MD / suad Interpreting Provider: Fernando Cook MD - Assessment and plan (1) Ascites Current Visit: Yes Status: Acute Assessment and plan: Patient reports a two-month history of increased abdominal girth which has worsened in the last month in addition to shortness of breath. In the ER, patient was found to have elevated total bilirubin of 1.7. Patient was recently evaluated by primary care provider in the right upper quadrant ultrasound was done on 06/02/18 which showed moderate volume ascites with splenomegaly. Abdominal/pelvis CT showed ascites with cirrhosis and splenomegaly in addition to portal hypertension. Will consult GI for paracentesis and any further recommendations. Qualifiers: Ascites type: other type Qualified Code(s): R18.8 - Other ascites (2) Hepatic cirrhosis Current Visit: Yes Status: Acute Assessment and plan: Abdominal/pelvis CT showed ascites with cirrhosis and splenomegaly in addition to portal hypertension. Patient was recently evaluated by primary care provider in the right upper quadrant ultrasound was done on 06/02/18 which showed moderate volume ascites with splenomegaly. GI consulted as above and appreciate recommendations Qualifiers: Hepatic cirrhosis type: other cirrhosis Qualified Code(s): K74.69 - Other cirrhosis of liver (3) Acute on chronic systolic (congestive) heart failure Current Visit: Yes Status: Acute Assessment and plan: Patient reports of increased shortness of breath which could be secondary to above ascites as well. However, patient was found to have an elevated BNP of 405 Patient had a recent echocardiogram on 03/04/18 which showed LVEF of 40-45% with mild global hypokinesis. Continue IV diuresis (4) Atrial fibrillation with rapid ventricular response Current Visit: Yes Status: Acute Assessment and plan: In the ER, patient was also found to have H of fibrillation with RVR with heart rates ranging from 122-149 Will continue IV Cardizem and oral anticoagulation with Eliquis. Will consult cardiology and appreciate recommendations (5) Diabetes Current Visit: Yes Status: Acute Assessment and plan: Continue home medications Qualifiers: Qualified Code(s): E11.9 - Type 2 diabetes mellitus without complications (6) COPD (chronic obstructive pulmonary disease) Current Visit: Yes Status: Acute Assessment and plan: Will place patient on scheduled DuoNeb's due to expiratory wheezes Qualifiers: Emphysema type: unspecified Qualified Code(s): J43.9 - Emphysema, unspecified (7) Smoker Current Visit: Yes Status: Acute Assessment and plan: Nicotine replacement offered (8) DVT prophylaxis Current Visit: Yes Status: Acute Assessment and plan: Patient on Eliquis as above - Time Spent With Patient Total time spent is greater than 50% in coordination of care (as documented) at patient's floor/unit and/or counseling patient:
[2018-06-10] MEDS ORDERED: Naloxone 0.4 MG/ML INJ IVP PRN (17:07)
[2018-06-10] MEDS ORDERED: D5% in Water 1,000 ML IVC PRN (17:16)
[2018-06-10] MEDS ORDERED: *HR* Dextrose 50 % in Water (Syg) 50 ML SYRINGE IVP PRN (17:16)
[2018-06-10] MEDS ORDERED: Dextrose Gel 15 GM/37.5 ML TUBE PO PRN ×2 (17:16)
[2018-06-10 17:59] LABS: Hepatitis B Surface Antigen Nonreactive (Nonreactive)
[2018-06-10] MEDS: Ipratropium/Albuterol Neb 3 ML IH SCH (20:35)
[2018-06-10] MEDS ORDERED: Furosemide 20 MG/2 ML VIAL IVP SCH (21:00)
[2018-06-10] MEDS: Apixaban 5 MG TABLET PO SCH (22:11)
[2018-06-11] MEDS: Ipratropium/Albuterol Neb 3 ML IH SCH ×3 (02:34→07:39)
[2018-06-11 02:44] LABS: Hepatitis A Antibody IgM Nonreactive (Nonreactive); Hepatitis B Core IgM Nonreactive (Nonreactive); Hepatitis C Virus Antibody Nonreactive (Nonreactive)
[2018-06-11 04:43] LABS: Basophils # 0.1 K/mcL (0.0-0.2); Eosinophils # 0.3 K/mcL (0.0-0.6); Eosinophils % 4.9 %; Hematocrit 52.1 % (37.5-50.1); Immature Granulocytes % 0.4 % (0-4); Lymphocytes % 13.8 %; Mean Corpuscular HGB Conc 28.8 g/dL (31.6-35.5); Mean Corpuscular Volume 83.5 fL (83.0-100.0); Monocytes # 0.6 K/mcL (0.0-1.3); Monocytes % 9.2 %; Platelet Count 158 K/mcL (140-400); Red Blood Count 6.24 M/mcL (4.19-5.50); Red Cell Distribution Width 19.5 % (11.5-14.5); Segmented Neutrophils % 70.7 %
[2018-06-11 05:07] LABS: BUN/Creatinine Ratio 11 (6-26); Blood Urea Nitrogen 9 mg/dL (8-23); Calcium 9.1 mg/dL (8.6-10.3); Carbon Dioxide 35 mEq/L (23-29); Chloride 101 mEq/L (98-107); Glucose 102 mg/dL (70-105); Magnesium 1.5 mg/dL (1.6-2.6); Osmolality,Calculated 297 (280-300); Sodium 144 mEq/L (136-145); eGFR For Non-African Americans > 60 (> 60)
[2018-06-11 05:44] LABS: Hypochromasia Present (Not Present); Platelet Estimate Normal (Normal)
[2018-06-11] MEDS: Insulin LISPRO 300 UNITS/3 ML VIAL SQ SCH ×3 (08:45→16:58)
[2018-06-11 09:11] LABS: ABG Base Excess 18 mEq/L (-2 to 3); ABG HCO3 46 mEq/L (21-27); ABG Oxygen Saturation 96 % (95-98); ABG PCO2 63 mmHg (35-45); ABG PH 7.48 pH Units (7.32-7.45); ABG PO2 81 mmHg (85-104); ABG TCO2 48 mEq/L (20-26)
--- NOTE | 2018-06-11 09:11 | Internal Med Progress Note ---
Hospitalist Progress Note - Encounter Date of Encounter: 06/11/18 Time of Encounter: 11:00 - Subjective Interval History: Patient with a one-week history of increased abdominal girth and shortness of breath and found to have moderate ascites with splenomegaly on ultrasound done on 06/02/18 Patient on admission also found to have atrial fibrillation with RVR with mild exacerbation of systolic heart failure. Patient this morning developed acute respiratory distress and had to be placed on high flow oxygen and then to BiPAP Awaiting paracentesis for therapeutic relief - Exam Vitals: Temp Pulse Resp BP Pulse Ox 97.8 F 116 17 93/56 91 06/11/18 07:48 06/11/18 07:48 06/11/18 07:48 06/11/18 07:48 06/11/18 07:48 Exam: Gen.: Nonacute distress, alert and oriented 3 ENT: Mucosal membranes moist Respiratory: Respiratory distress with expiratory wheezes bilaterally Cardiovascular: Normal S1 and S2 regular rate rhythm no murmurs rubs or gallops Abdomen: Distended and tight Extremities: No lower extremity edema Skin: Excoriations with slight erythematous patch - Assessment and Plan (1) Ascites Current Visit: Yes Status: Acute Assessment and Plan: Patient reports a two-month history of increased abdominal girth which has worsened in the last month in addition to shortness of breath. In the ER, patient was found to have elevated total bilirubin of 1.7. Patient was recently evaluated by primary care provider in the right upper quadrant ultrasound was done on 06/02/18 which showed moderate volume ascites with splenomegaly. Abdominal/pelvis CT on 06/10/18 showed ascites with cirrhosis and splenomegaly in addition to portal hypertension. Will consult GI for paracentesis and any further recommendations. (2) Hepatic cirrhosis Current Visit: Yes Status: Acute Assessment and Plan: Abdominal/pelvis CT showed ascites with cirrhosis and splenomegaly in addition to portal hypertension. Patient was recently evaluated by primary care provider in the right upper quadrant ultrasound was done on 06/02/18 which showed moderate volume ascites with splenomegaly. Patient found to have low AST and ALT values on admission but elevated total bilirubin Viral hepatitis panel negative GI consulted as above and appreciate recommendations (3) Acute on chronic systolic (congestive) heart failure Current Visit: Yes Status: Acute Assessment and Plan: Patient reports of increased shortness of breath which could be secondary to above ascites as well. However, patient was found to have an elevated BNP of 405 Patient had a recent echocardiogram on 03/04/18 which showed LVEF of 40-45% with mild global hypokinesis. Continue IV diuresis Cardiology consulted and appreciate recommendations (4) Atrial fibrillation with rapid ventricular response Current Visit: Yes Status: Acute Assessment and Plan: On admission, patient was found to have atrial fibrillation with RVR with heart rates ranging from 122-149 Patient still with rapid ventricular rate this morning so we will continue IV Cardizem and oral anticoagulation with Eliquis. Cardiology consulted and appreciate recommendations (5) Diabetes Current Visit: Yes Status: Acute Assessment and Plan: Coverage with sliding-scale insulin (6) COPD (chronic obstructive pulmonary disease) Current Visit: Yes Status: Acute Assessment and Plan: Continue scheduled dual nebs for expiratory wheezes (7) Smoker Current Visit: Yes Status: Acute Assessment and Plan: Nicotine replacement offered DVT Prophylaxis: Patient on Eliquis as above - Time Spent with Patient Total time spent is greater than 50% in coordination of care (as documented) at patient's floor/unit and/or counseling patient: Internal Medicine: Result - Labs CBC & Chem 7: 06/11/18 04:18 06/11/18 04:18 Labs: Short CBC 06/11/18 Range/Units 04:18 WBC 7.0 (4.3-11.1) K/mcL Hgb 15.0 (12.9-16.9) g/dL Hct 52.1 H (37.5-50.1) % Plt Count 158 (140-400) K/mcL Neutrophils # 5.0 (1.6-8.9) K/mcL BMP 06/11/18 04:18 Sodium 144 Potassium 4.0 Chloride 101 Carbon Dioxide 35 H BUN 9 Creatinine 0.81 Glucose 102 Calcium 9.1 - ABG Interpretation ABG results: PT/INR, D-dimer PT 22.0 Seconds (9.4-12.1) H 06/10/18 14:01 Consult Discharge Plan - Plan Referrals: Chhaya Avila, ACCOUNTING DIRECTOR [Primary Care Provider] - (1) Ascites Qualifiers: Ascites type: other type Qualified Code(s): R18.8 - Other ascites (2) Hepatic cirrhosis Qualifiers: Hepatic cirrhosis type: other cirrhosis Qualified Code(s): K74.69 - Other cirrhosis of liver (6) COPD (chronic obstructive pulmonary disease) Qualifiers: Emphysema type: unspecified
[2018-06-11 09:44] LABS: Alanine Aminotransferase 5 Units/L (7-52); Albumin 3.7 g/dL (3.5-5.7); Albumin/Globulin Ratio 1.9 (1.1-2.2); Alkaline Phosphatase 76 Units/L (34-104); Aspartate Amino Transferase 12 Units/L (13-39); Bilirubin,Direct 0.4 mg/dL (0.0-0.2); Bilirubin,Indirect 1.4 mg/dL (0.0-1.2); Bilirubin,Total 1.8 mg/dL (0.3-1.0); Globulin 1.9 g/dL (2.4-3.5); Total Protein 5.6 g/dL (6.4-8.9)
--- NOTE | 2018-06-11 10:18 | Gastroenterology Consult Note ---
<Eliseo Natarajan - Last Filed: 06/11/18 14:40> Date of Encounter: 06/11/18 Time of Encounter: 10:17 - Assessment and plan (1) Ascites Current Visit: Yes Status: Acute Assessment and plan: Patient presented with a two-month history of increasing abdominal girth; worsened over the last month - Also presented to ER with shortness of breath - Unknown etiology at this time; possible cardiac cirrhosis - Labs demonstrated an elevated bilirubin of 1.7 - Diagnostic paracentesis performed; removed 5 L of fluid - Fluid studies pending - Patient will be given 50 of albumin for 3 days Qualifiers: Ascites type: other type Qualified Code(s): R18.8 - Other ascites (2) Hepatic cirrhosis Current Visit: Yes Status: Acute Assessment and plan: Patient presented with shortness of breath and increasing abdominal distention - Abdominal/pelvis CT demonstrated: ascites with cirrhosis and splenomegaly, portal HTN - Recently evaluated by PCP; RUQ ultrasound on 06/02 demonstrated moderate ascites with spinal megaly - Patient was recently evaluated by primary care provider in the right upper quadrant ultrasound was done on 06/02/18 which showed moderate volume ascites with splenomegaly - Unknown etiology at this time; possible cardiac cirrhosis - Paracentesis performed this morning. Fluid studies pending. Plan: - We will place patient on Lasix and spironolactone - 50 of albumin for 3 days - Will order AMA, alpha-1 anti-trypsin, hepatitis panel, ceruloplasmin, and ferritin levels - Further workup will be performed in the outpatient setting Qualifiers: Hepatic cirrhosis type: other cirrhosis Qualified Code(s): K74.69 - Other cirrhosis of liver (3) Atrial fibrillation with rapid ventricular response Current Visit: Yes Status: Acute Assessment and plan: - Management per primary team (4) Diabetes Current Visit: Yes Status: Acute Assessment and plan: - Management per primary team Qualifiers: Qualified Code(s): E11.9 - Type 2 diabetes mellitus without complications - Time Spent With Patient Total time spent is greater than 50% in coordination of care (as documented) at patient's floor/unit and/or counseling patient: GI History of Present Illness - Data of Consult Requesting Physician: Donal Sheppard - Consult Narrative Reason for consult: Ascites History of present illness: Mr. 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 He reported a two-month history of increasing abdominal girth, which worsened in the last month. He also reported worsening shortness of breath. Reported decreased by mouth intake due to discomfort. Patient was found to have an elevated bilirubin at 1.7. INR 2.0. Also found to have an elevated BNP at 405. Has a known history of CHF; recent echo demonstrated ejection fraction of 40-45% with global hypokinesis. Patient was admitted for further management. He was seen and examined at bedside this morning; patient reports that he has had worsening shortness of breath since his admission. Patient notes that his abdomen is very tight and uncomfortable. He also reported significant respiratory distress. He denies having any abdominal pain, change in bowel habits. He reports some itching on his skin in the mid abdominal area over the last 2 weeks. Patient was placed on BiPAP due to low oxygen saturation. Patient was noted to be tachycardic in the 120s to 130s. His blood pressure was in the high 90s systolic. Patient was placed on BiPAP, and respiratory status and heart rate subsequently improved. Paracentesis was performed; total of 5 L was removed. Albumin was ordered, and fluid studies are pending. Patient had no further complaints and had no complications from the procedure. Past Med Surg Social Fam HX - Past Medical History Medical history: atrial fibrillation, CHF, COPD, CVA, diabetes, hyperlipidemia, hypertension Psychiatric history: no psych history - Past Surgical History Surgical History: other Additional surgical history: heart cath, back surgery - Social History Smoking Status: Current every day smoker Packs per day: 1 Smokeless Tobacco Status: No Alcohol use: none Drug use: none - Family History Mother Name: Lily Living Status: Age at : 62 Cause of : kidney failure Hx Family Cardiac Disorders: Yes (HTN) Hx Family Respiratory Disorders: No Hx Family Cancer: No Hx Family GI Disorders: No Hx Family Genitourinary Disorders: Yes Hx Family Endocrine Disorder: No Hx Family Musculoskeletal Disorders: No Hx Family Neuromuscular Disorders: No Hx Family Neurologic Disorders: No Hx Family HEENT Disorders: No Hx Family Autoimmune Disorders: No Hx Family Reproductive Disorders: No Hx Family Psychosocial Disorders: No Hx Family Medical Disorders: No Father Name: Martin Living Status: Age at : 68 Cause of : "black lung" Hx Family Cardiac Disorders: No Hx Family Respiratory Disorders: Yes Hx Family Cancer: No Hx Family GI Disorders: No Hx Family Genitourinary Disorders: No Hx Family Endocrine Disorder: Yes (Diabetes) Hx Family Musculoskeletal Disorders: No Hx Family Neuromuscular Disorders: No Hx Family Neurologic Disorders: No Hx Family HEENT Disorders: No Hx Family Autoimmune Disorders: No Hx Family Reproductive Disorders: No Hx Family Psychosocial Disorders: No Hx Family Medical Disorders: No - Gastrointestinal Gastrointestinal: Present: bloating. Absent: abdominal pain, change in bowel habits, coffee ground emesis, constipation, diarrhea, dyspepsia, heartburn, hematemesis, melena, nausea, vomiting - Constitutional Constitutional: fatigue, weight gain, no fever(s) - EENT Eyes: as per HPI, Yellow Discoloration Ears: Present: as per HPI Nose, mouth and throat: Present: as per HPI - Cardiovascular Cardiovascular ROS: Present: as per HPI, irregular heart rhythm. Absent: chest pain, palpitations - Respiratory Respiratory IM: Present: as per HPI, dyspnea, wheezing. Absent: cough, hemoptysis - Genitourinary Genitourinary: Absent: Urinary frequency - Neurological ROS Neurological GI: Present: as per HPI, weakness. Absent: confusion - Musculoskeletal Musculoskeletal ROS GI: Present: as per HPI - Integumentary Integumentary GI: Present: jaundice, pruritis (Pruitis present diffusely across the abdomen), rash (Red rash/scratch camarena present across abdomen) - Psychiatric ROS Psychiatric GI: Present: as per HPI. Absent: anxiety - Endocrine Endocrine IM: Present: as per HPI, fatigue - Constitutional Vitals: Temp Pulse Resp BP Pulse Ox 97.8 F 116 17 93/56 91 06/11/18 07:48 06/11/18 07:48 06/11/18 07:48 06/11/18 07:48 06/11/18 07:48 - Head Head exam: Present: atraumatic, normocephalic - Eye Eye exam: Present: EOMI, scleral icterus. Absent: periorbital swelling - ENT ENT exam: Present: mucous membranes moist, normal exam - Neck Neck exam general surgery: Present: normal inspection, trachea midline - Respiratory Respiratory exam: Present: prolonged expiratory phase, respiratory distress, wheezes, tachypnea. Absent: chest wall tenderness, decreased breath sounds - Cardiovascular Cardiovascular exam: Present: irregular rhythm, +S1, +S2, tachycardia. Absent: JVD - GI/Abdominal GI/Abdominal exam: Present: distended, firm, hypoactive bowel sounds - Expanded GI/Abdominal Exam GI/Abdominal exam expanded: Present: ascites - Extremities Exam Extremities exam: Present: warm - Neurological Exam Neurological exam: Present: no focal deficits - Psychiatric Psychiatric exam: Present: normal affect, normal mood - Skin Skin exam: Present: cyanosis (Patient appeared cyanotic this morning; O2 sat was 87), dry, intact Results - Labs CBC & Chem 7: 06/11/18 04:18 06/11/18 04:18 Labs: Last Result Calcium 9.1 mg/dL (8.6-10.3) 06/11/18 04:18 Troponin I < 0.03 ng/mL (< 0.04) 06/10/18 14:01 Entire Visit Hgb 15.0 g/dL (12.9-16.9) 06/11/18 04:18 Hct 52.1 % (37.5-50.1) H 06/11/18 04:18 PT 22.0 Seconds (9.4-12.1) H 06/10/18 14:01 Total Bilirubin 1.8 mg/dL (0.3-1.0) H 06/11/18 04:18 AST 12 Units/L (13-39) L 06/11/18 04:18 ALT 5 Units/L (7-52) L 06/11/18 04:18 Ammonia 47 mcmol/L (16-53) 06/10/18 14:01 - ABG ABG results: ABG ABG pH 7.48 pH Units (7.32-7.45) H 06/11/18 09:04 ABG pCO2 63 mmHg (35-45) H 06/11/18 09:04 ABG pO2 81 mmHg (85-104) L 06/11/18 09:04 ABG O2 Saturation 96 % (95-98) 06/11/18 09:04 PT/INR, D-dimer PT 22.0 Seconds (9.4-12.1) H 06/10/18 14:01 - Impressions Impressions Chest X-Ray 06/11/18 09:07 IMPRESSION: 1. Mild to moderate congestive heart failure. D/ / 06/11/2018 10:05:11 Krista Yuen MD / [email or web address] Interpreting Provider: Krista Yuen MD Consult Discharge Plan - Plan Referrals: Chhaya Avila, [employer] [facility] [facility] [Primary Care Provider] - <Hamzah Garzon - Last Filed: 06/11/18 16:23> Date of Encounter: 06/11/18 Time of Encounter: 14:00 - Time Spent With Patient Total time spent is greater than 50% in coordination of care (as documented) at patient's floor/unit and/or counseling patient: GI History of Present Illness - Data of Consult Requesting Physician: Donal Sheppard - Consult Narrative History of present illness: Mr. Orozco is a 62 year old male - Constitutional Vitals: Temp Pulse Resp BP Pulse Ox 98.9 F 92 17 102/65 95 06/11/18 12:00 06/11/18 16:00 06/11/18 12:00 06/11/18 16:00 06/11/18 12:00 Results - Labs CBC & Chem 7: 06/11/18 04:18 06/11/18 04:18 Labs: Last Result Calcium 9.1 mg/dL (8.6-10.3) 06/11/18 04:18 Troponin I < 0.03 ng/mL (< 0.04) 06/10/18 14:01 Peritoneal Appearance CLEAR (Clear) 06/11/18 Unknown Peritoneal Volume 1000.0 mL 06/11/18 Unknown Peritoneal RBC < 0.002 M/mcL (0.000-0.002) 06/11/18 Unknown Periton Tot Nuc Cells 295 TNC/mcL (0-300) 06/11/18 Unknown Periton Band Neuts Test Not Performed 06/11/18 Unknown Periton Lymphocytes % 68.0 % 06/11/18 Unknown Periton Monocytes % 2.0 % 06/11/18 Unknown Periton Other Cells % Test Not Performed 06/11/18 Unknown Peritoneal Tot Protein < 3.0 g/dL (No Ref Range) 06/11/18 Unknown Peritoneal LDH 58 Units/L (No Ref Range) 06/11/18 Unknown Peritoneal Glucose 115 mg/dL (No Ref Range) 06/11/18 Unknown Peritoneal Amylase 23 Units/L (No Ref Range) 06/11/18 Unknown Entire Visit Hgb 15.0 g/dL (12.9-16.9) 06/11/18 04:18 Hct 52.1 % (37.5-50.1) H 06/11/18 04:18 PT 22.0 Seconds (9.4-12.1) H 06/10/18 14:01 Total Bilirubin 1.8 mg/dL (0.3-1.0) H 06/11/18 04:18 AST 12 Units/L (13-39) L 06/11/18 04:18 ALT 5 Units/L (7-52) L 06/11/18 04:18 Ammonia 47 mcmol/L (16-53) 06/10/18 14:01 - ABG ABG results: ABG ABG pH 7.48 pH Units (7.32-7.45) H 06/11/18 09:04 ABG pCO2 63 mmHg (35-45) H 06/11/18 09:04 ABG pO2 81 mmHg (85-104) L 06/11/18 09:04 ABG O2 Saturation 96 % (95-98) 06/11/18 09:04 PT/INR, D-dimer PT 22.0 Seconds (9.4-12.1) H 06/10/18 14:01 - Impressions Impressions Chest X-Ray 06/11/18 09:07 IMPRESSION: 1. Mild to moderate congestive heart failure. D/ / 06/11/2018 10:05:11 Krist[facility] Yuen MD / [facility] Interpreting Provider: Krista Yuen MD - Attending Attestation I examined this patient and my medical decision-making was reviewed with the Resident Physician. I agree with the documented findings, disposition and treatment plan as described except to the extent set forth below. Pt seen with Dr Natarajan. Agree with his A/P. On Exam: Abd distended but soft. A: Pt with cirrhosis and multiple other comorbidities including CHF, now with ascites s/p TAP. ReC: low dose diuretics as BP allows. If BP remain low then low dose midodrine if OK with cardiology. IV albumin. W/U for cirrhosis. F/u GI out pt
[2018-06-11] MEDS: Levalbuterol Neb 1.25 MG/3 ML IH SCH ×3 (10:47→22:52)
[2018-06-11] MEDS: Metoprolol XL (24 HR) Succ 50 MG TAB.ER.24H PO SCH (10:51)
[2018-06-11] MEDS: Magnesium Oxide 400 MG TABLET PO SCH (10:52)
[2018-06-11] MEDS: Apixaban 5 MG TABLET PO SCH ×2 (10:52→21:21)
[2018-06-11] MEDS: Nicotine 21 MG PATCH.TD24 TD SCH (10:53)
[2018-06-11] MEDS: Sennosides 8.6 MG TABLET PO SCH (10:53)
[2018-06-11 11:05] LABS: RBC,Peritoneal Fluid < 0.002 M/mcL
[2018-06-11 11:55] LABS: Appearance of Peritoneal Fl CLEAR (Clear)
[2018-06-11 12:05] LABS: Amylase,Peritoneal Fluid 23 Units/L (No Ref Range); Glucose,Peritoneal Fluid 115 mg/dL (No Ref Range); LDH,Peritoneal Fluid 58 Units/L (No Ref Range); Total Protein,Peritoneal Fluid < 3.0 g/dL (No Ref Range)
--- NOTE | 2018-06-11 12:19 | Cardiology Consult Note ---
<Maribell Jackson - Last Filed: 06/11/18 12:50> Date of Encounter: 06/11/18 Time of Encounter: 09:00 Assessment and Plan (1) Congestive heart failure Current Visit: Yes Status: Acute Per cardiology: -ADmitted with increased shortness of breath. Known NICM LVEF 40% 02/2018. [facility] without intervention. -BNP 405. -Also noted to have cirrhosis and ascites s/p paracentesis. -Initial chest x-ray with no acute process, however todays chest x-ray with interstitial edema. -ON IV lasix. -Patient's dry weight is about 257 pounds, current weight 262 pounds. -On BB, rené inhibitor. -Strict i/os, fluid restriction, daily weights. -Suspect volume overload multi-factoral. Qualifiers: Heart failure type: systolic Heart failure chronicity: acute on chronic Qualified Code(s): I50.23 - Acute on chronic systolic (congestive) heart failure (2) Atrial fibrillation with rapid ventricular response Current Visit: Yes Status: Acute Per cardiology: -Known PAF -Average HR previous 12 hours noted to be 115, a.fib. -ON BB, cardizem drip started per ER. -After paracentesis and BB given, HR improved, currently 90-100s at bedside. -Known cardiomyopathy, LVEF 40%. -On eliquis for anticoagulation. -Continue BB, would not recommend cardizem drip retirement. Attempt to wean cardizem drip to off. -If BP will tolerate, consider increasing BB. -WIll continue to monitor. Discussion w patient/family: The assessment and plan as outlined above was discussed with the patient who expressed understanding and agreement. All questions were answered. Thank you for involving us in the care of your patient. Please call with any questions. Discussed and reviewed with . History of Present Illness Consult date: 06/10/18 Requesting physician: Donal Sheppard Consult reason: a.fib RVR, CHF Chief complaint: shortness of breath History of present illness: Mr. Orozco is a 62 year old male with a relevant past medical history of a.fib, NICM, HTN, anxiety, GERD who presented to [facility] with complaints of difficulty in breathing. Patient is currently s/p paracenteis and reports SHERWIN improved after paracentesis. Patient deneis chest pain. Denies palpitations/fluttering. Patient denies active bleeding or blood loss. Past Med Surg Social Fam HX - Past Medical History Attestation: Yes The following information was validated with the patient. Source: patient, old records reviewed Medical history: atrial fibrillation, cardiomyopathy, CHF, COPD, CVA, diabetes, GERD, hyperlipidemia, hypertension Psychiatric history: no psych history - Past Surgical History Surgical History: other Additional surgical history: heart cath, back surgery - Social History Smoking Status: Current every day smoker Packs per day: 1 Smokeless Tobacco Status: No Alcohol use: none Drug use: none - Family History Mother Name: Lily Living Status: Age at : 62 Cause of : kidney failure Hx Family Cardiac Disorders: Yes (HTN) Hx Family Respiratory Disorders: No Hx Family Cancer: No Hx Family GI Disorders: No Hx Family Genitourinary Disorders: Yes Hx Family Endocrine Disorder: No Hx Family Musculoskeletal Disorders: No Hx Family Neuromuscular Disorders: No Hx Family Neurologic Disorders: No Hx Family HEENT Disorders: No Hx Family Autoimmune Disorders: No Hx Family Reproductive Disorders: No Hx Family Psychosocial Disorders: No Hx Family Medical Disorders: No Father Name: Martin Living Status: Age at : 68 Cause of : "black lung" Hx Family Cardiac Disorders: No Hx Family Respiratory Disorders: Yes Hx Family Cancer: No Hx Family GI Disorders: No Hx Family Genitourinary Disorders: No Hx Family Endocrine Disorder: Yes (Diabetes) Hx Family Musculoskeletal Disorders: No Hx Family Neuromuscular Disorders: No Hx Family Neurologic Disorders: No Hx Family HEENT Disorders: No Hx Family Autoimmune Disorders: No Hx Family Reproductive Disorders: No Hx Family Psychosocial Disorders: No Hx Family Medical Disorders: No Medications and Allergies Apixaban [Eliquis] 5 mg PO BID 06/10/18 [History] Aspirin [Lo-Dose Aspirin EC] 81 mg PO DAILY 06/10/18 [History] Atorvastatin [Lipitor] 40 mg PO HS 06/10/18 [History] Furosemide [Lasix] 20 mg PO DAILY 06/10/18 [History] Lisinopril [Zestril] 5 mg PO DAILY 06/10/18 [History] Magnesium Oxide [Mag-Ox] 400 mg PO DAILY 06/10/18 [History] Metoprolol Succinate [Toprol Xl] 100 mg PO DAILY 06/10/18 [History] Omeprazole [PriLOSEC] 20 mg PO DAILY 06/10/18 [History] Potassium Chloride [Klor-Con 10] 10 meq PO DAILY 06/10/18 [History] Sennosides [Senna] 8.6 mg PO DAILY 06/10/18 [History] metFORMIN [Glucophage] 500 mg PO BIDWM 06/10/18 [History] 3 Allergy/AdvReac Type Severity Reaction Status Date / Time No Known Allergies Allergy Verified 06/10/18 15:40 All Systems Review: The remainder of the systems were reviewed and are negative - Cardiovascular Cardiovascular: as per HPI, dyspnea at rest, dyspnea on exertion Physical Examination Vital Signs, Last 4 Hours Resp Pulse Ox 06/11/18 11:59 37 87 06/11/18 10:48 32 93 06/11/18 09:58 32 98 Vital Signs Temperature 99.4 F 06/10/18 13:16 Pulse Rate 88 06/10/18 13:16 Respiratory Rate 22 06/10/18 13:16 Blood Pressure 136/84 06/10/18 13:16 O2 Sat by Pulse Oximetry 87 06/10/18 13:16 Temperature 98.9 F 06/11/18 12:00 Pulse Rate 93 06/11/18 12:00 Respiratory Rate 17 06/11/18 12:00 Blood Pressure 110/63 06/11/18 12:00 O2 Sat by Pulse Oximetry 95 06/11/18 12:00 Oxygen Delivery Oxygen Delivery Nasal Cannula General: Conversant, Other (Conversational dyspnea noted. ) HEENT: Atraumatic, Normocephaly, Mucus Membranes Moist Neck: No JVD, Normal carotid pulses Cardiac: Normal S1 and S2, No Murmur, Other (Irregularly irregular ) Lungs: Other (Lung sounds diminished throughout. ) Neuro: Alert and responsive, No focal deficits noted Abdomen: Other (Firm. ) Skin: No rashes noted on visualized skin Musculoskeletal: No Chest Wall Tenderness Extremities: No Clubbing, No Cyanosis, No Edema, Normal Pulses Results 06/11/18 04:18 06/11/18 04:18 Lab Results Impressions Chest X-Ray 06/10/18 13:30 IMPRESSION: Cardiomegaly with interstitial edema. D/ / Gi Zhang MD / Gi Zhang MD Interpreting Provider: Gi Zhang MD Abdomen/Pelvis CT 06/10/18 13:38 IMPRESSION: 1. Small bilateral pleural effusions with lower lobe atelectasis. 2. Ascites. 3. Cirrhosis with splenomegaly. Portal hypertension. 4. Diverticulosis. D/ / 06/10/2018 16:02:00 Fernando Cook MD / [facility] Interpreting Provider: Fernando Cook MD Chest X-Ray 06/11/18 09:07 IMPRESSION: 1. Mild to moderate congestive heart failure. D/ / 06/11/2018 10:05:11 Krista Yuen MD / [facility] Interpreting Provider: Krista Yuen MD Active Medications Apixaban (Eliquis) 5 mg PO BID [place] Stop: 12/10/18 21:01 Last Admin: 06/11/18 10:52 Dose: 5 mg Atorvastatin Calcium (Lipitor) 40 mg PO HS [place] Stop: 12/10/18 21:01 Last Admin: 06/10/18 22:11 Dose: 40 mg Dextrose/Water (Dextrose 50% (Syg)) 25 ml IVP AD PRN PRN Reason: Hypoglycemia Stop: 12/10/18 17:17 Furosemide (Lasix) 20 mg IVP BIDDIURETIC [place] Stop: 12/10/18 10:46 Glucagon (Glucagen) 1 mg IM ONCE PRN PRN Reason: Hypoglycemia Stop: 12/10/18 17:17 Glucose (Gluctose) 15 gm PO ONCE PRN PRN Reason: Hypoglycemia Stop: 12/10/18 17:17 Glucose (Gluctose) 30 gm PO ONCE PRN PRN Reason: Hypoglycemia Stop: 12/10/18 17:17 Dextrose (Dextrose 5%) 1,000 mls @ 100 mls/hr IVC .Q10H PRN PRN Reason: HYPOGLYCEMIA Stop: 12/10/18 17:17 Diltiazem HCl 50 mg/ Sodium (Chloride) 50 mls @ 5 mls/hr IVC .Q10H [place]; 5 MG/HR PRN Reason: Protocol Stop: 12/10/18 17:16 Last Infusion: 06/11/18 12:24 Dose: 7.5 mg/hr, 7.5 mls/hr Insulin Human Lispro (Humalog) 0 units SQ TIDAC [facility] PRN Reason: Protocol Stop: 12/11/18 07:31 Last Admin: 06/11/18 12:24 Dose: Not Given Levalbuterol HCl (Xopenex) 1.25 mg IH [id number] [facility] Stop: 12/11/18 10:31 Last Admin: 06/11/18 10:47 Dose: 1.25 mg Lisinopril (Zestril) 5 mg PO DAILY [facility] PRN Reason: Protocol Stop: 12/11/18 09:01 Magnesium Oxide (Mag-Ox) 400 mg PO DAILY [facility] PRN Reason: Protocol Stop: 12/11/18 09:01 Last Admin: 06/11/18 10:52 Dose: 400 mg Metoprolol Succinate (Toprol Xl) 100 mg PO DAILY [facility] Stop: 12/11/18 09:01 Last Admin: 06/11/18 10:51 Dose: 100 mg Naloxone HCl (Narcan) 0.4 mg IVP Q2MIN PRN PRN Reason: SEE COMMENTS Stop: 12/10/18 17:08 Nicotine (Nicoderm) 21 mg TD DAILY [facility] PRN Reason: Protocol Stop: 12/11/18 09:01 Last Admin: 06/11/18 10:53 Dose: 21 mg Omeprazole (Prilosec) 20 mg PO DAILY [facility] PRN Reason: Protocol Stop: 12/11/18 09:01 Last Admin: 06/11/18 10:53 Dose: 20 mg Potassium Chloride (Potassium Chloride) 10 meq PO DAILY [place] Stop: 12/11/18 09:01 Last Admin: 06/11/18 10:53 Dose: 10 meq Senna (Senna) 8.6 mg PO DAILY [facility] Stop: 12/11/18 09:01 Last Admin: 06/11/18 10:53 Dose: 8.6 mg Laboratory Tests 06/10/18 06/10/18 06/10/18 14:01 14:01 14:01 Hgb Potassium Creatinine Magnesium Troponin I < 0.03 B-Natriuretic Peptide 405 H TSH 1.706 06/11/18 06/11/18 04:18 04:18 Hgb 15.0 Potassium 4.0 Creatinine 0.81 Magnesium 1.5 L Troponin I B-Natriuretic Peptide TSH - Imaging and Cardiology Chest Xray: report reviewed Echo: report reviewed - EKG Interpretation EKG results cardiology: personally reviewed (ECG with a.fib RVR, HR 159.), other (Telemetry reviewed with average HR previous 12 hours noted to be 115.a.fib. PVCs noted.) Consult Discharge Plan - Plan Referrals: Chhaya Avila, [facility] [Primary Care Provider] - <Val Maxwell - Last Filed: 06/11/18 13:17> Date of Encounter: 06/11/18 - Attending Attestation Patient was seen and evaluated independently by me. Findings, assessment and plan were discussed at length with patient, questions answered. Agree with nurse practitioner's documentation. Addition as follows, 62yoCM ho cirrhosis, NICMP EF 40% LHC in [place] w/o PCI last month, PAF on eliquis. P/w increased abd girth, LE edema, wt gain.. Pt seen s/p paracentesis 4 L, feels better, Afib 80s-90s, CTA, IIR, 2+ B/L LE edema to high shins CT + cirrhosis, splenomegaly, portal hypertension A: NICMP HFrEF, chronic Afib Decompendated cirrhosi, etiology unclear, primary vs cardiac (howver, RV fnx nl w/o pul HTN on TTE 02/2018) P: - pending GI w/u for cirrhosis etiology, SAAG and total protein, if suggests cardiac, repeat TTE - c/w toprol and nhan - rec lasix + aldactone, but need GI input - c/w eliquis, watch GFR Val Maxwell MD, PhD Assessment and Plan Discussion w patient/family: The assessment and plan as outlined above was discussed with the patient and/or family members who expressed understanding and agreement. All questions were answered. Thank you for involving us in the care of your patient. Please call with any questions. History of Present Illness History of present illness: Mr. Orozco is a 62 year old male All Systems Review: The remainder of the systems were reviewed and are negative Physical Examination Vital Signs, Last 4 Hours Temp Pulse Resp BP Pulse Ox 06/11/18 12:26 96 110/63 06/11/18 12:00 98.9 F 93 17 110/63 95 06/11/18 11:59 37 87 06/11/18 10:48 32 93 06/11/18 09:58 32 98 Results 06/11/18 04:18 06/11/18 04:18 Lab Results 06/11/18 06/11/18 04:18 04:18 WBC 7.0 Hgb 15.0 Hct 52.1 H Plt Count 158 Sodium 144 Potassium 4.0 Chloride 101 Carbon Dioxide 35 H BUN 9 Creatinine 0.81 Glucose 102 Calcium 9.1 Magnesium 1.5 L Total Bilirubin 1.8 H AST 12 L ALT 5 L Alkaline Phosphatase 76
--- NOTE | 2018-06-11 13:24 | Procedure Note ---
Date of procedure: 06/11/18 Pre-op diagnosis: Ascites Post-op diagnosis: same Procedure: Paracentesis Date: 06/11/18 Time: 09:15 Indication: Ascites Resident: Eliseo Fritz Attending: Donal Sheppard A time-out was completed verifying correct patient, procedure, site, positioning , and special equipment if applicable. The patients left side was prepped and draped in a sterile manner after the appropriate infiltration level was confirmed by ultrasound. 1% lidocaine was used anesthetize the surrounding skin. A finder needle was then used to locate fluid and clear yellow fluid was obtained. A 10-blade scalpel used to make the incision. The paracentesis catheter was then threaded without difficulty. The patient had 5L of clear yellow fluid removed. Resident was present for the entire procedure. The fluid will be sent for several studies. Estimated Blood Loss: 5cc The patient tolerated the procedure well and there were no complications. Anesthesia: local Was there an assistant public defender present: Yes Handle Sander Operator: Vernell Rodarte Estimated blood loss (cc): 5 Specimen: Ascites fluid, 5L Condition: stable Disposition: floor
[2018-06-11] MEDS: Furosemide 20 MG/2 ML VIAL IVP SCH ×2 (14:28→17:51)
[2018-06-11] MEDS: Albumin 25% 25gram/100mL 25 GM/100 ML IV.SOLN IVPB SCH ×2 (15:08→17:34)
[2018-06-12] MEDS: Levalbuterol Neb 1.25 MG/3 ML IH SCH ×4 (03:45→22:18)
[2018-06-12] MEDS: Albumin 25% 25gram/100mL 25 GM/100 ML IV.SOLN IVPB SCH ×2 (06:39→15:03)
[2018-06-12] MEDS: Nicotine 21 MG PATCH.TD24 TD SCH (10:17)
[2018-06-12] MEDS: Sennosides 8.6 MG TABLET PO SCH (10:17)
[2018-06-12] MEDS: Furosemide 20 MG/2 ML VIAL IVP SCH ×2 (10:17→18:08)
[2018-06-12] MEDS: Magnesium Oxide 400 MG TABLET PO SCH (10:18)
[2018-06-12] MEDS: Metoprolol XL (24 HR) Succ 50 MG TAB.ER.24H PO SCH (10:18)
[2018-06-12] MEDS: Apixaban 5 MG TABLET PO SCH ×2 (10:18→19:53)
[2018-06-12] MEDS: Insulin LISPRO 300 UNITS/3 ML VIAL SQ SCH ×3 (10:19→18:08)
--- NOTE | 2018-06-12 11:05 | Cardiology Progress Note ---
Date of Encounter: 06/12/18 Time of Encounter: 08:30 Assessment and Plan (1) Congestive heart failure Current Visit: Yes Status: Acute Per cardiology: -ADmitted with increased shortness of breath. Known NICM LVEF 40% 02/2018. [facility] at [facility] without intervention. -BNP 405. -Also noted to have cirrhosis and ascites s/p paracentesis. Of note, NO RV dysufnction on previous TTE. -Initial chest x-ray with no acute process, however todays chest x-ray with interstitial edema. -ON IV lasix. -Patient's dry weight is about 257 pounds, current weight 257 pounds. -On BB, rené inhibitor, can hold rené inhibitor with hypotension. -Strict i/os, fluid restriction, daily weights. -Suspect volume overload multi-factoral. -Will repeat TTE to rule out RV dysufnction (right sided CHF). Qualifiers: Heart failure type: systolic Heart failure chronicity: acute on chronic Qualified Code(s): I50.23 - Acute on chronic systolic (congestive) heart failure (2) Atrial fibrillation with rapid ventricular response Current Visit: Yes Status: Acute Per cardiology: -Known PAF -Average HR previous 12 hours noted to be 124, a.fib. -ON BB. -Known cardiomyopathy, LVEF 40%. -On eliquis for anticoagulation. -Continue BB, would not recommend CCB with cardiomyopathy. -Patient currently hypotensive. Discussed and reviewed with , will give IV digoxin load if renal function stable. Stat BMP ordered. -WIll continue to monitor. Discussion w patient/family: The assessment and plan as outlined above was discussed with the patient who expressed understanding and agreement. All questions were answered. Thank you for involving us in the care of your patient. Please call with any questions. Discussed and reviewed with . Subjective Principal diagnosis: a.fib RVR, CHF Interval history: Pateint reports breathing improved today. Denies palpitations/fluttering. Objective Vital Signs, Last 4 Hours Temp Pulse Resp BP Pulse Ox 06/12/18 08:48 22 90 06/12/18 07:49 98 F 114 16 101/75 92 General: Conversant, No Apparent Distress HEENT: Atraumatic, Normocephaly, Mucus Membranes Moist Neck: No JVD, Normal carotid pulses Cardiac: Normal S1 and S2, No Murmur, Other (Irregularly irregular. Tachycardic) Lungs: Other (Lung sounds diminished throughout. Expiratory wheeze noted. ) Neuro: Alert and responsive, No focal deficits noted Abdomen: Non-Tender, Other (Firm) Skin: No rashes noted on visualized skin Musculoskeletal: No Chest Wall Tenderness Extremities: No Clubbing, No Cyanosis, Normal Pulses, Other (Mild bilateral pedal edema noted, non-pitting. ) Results 06/11/18 04:18 06/11/18 04:18 Impressions Abdomen/Pelvis CT 06/10/18 13:38 IMPRESSION: 1. Small bilateral pleural effusions with lower lobe atelectasis. 2. Ascites. 3. Cirrhosis with splenomegaly. Portal hypertension. 4. Diverticulosis. D/ / 06/10/2018 16:02:00 Fernando Cook MD / [facility] Interpreting Provider: Fernando Cook MD Chest X-Ray 06/11/18 09:07 IMPRESSION: 1. Mild to moderate congestive heart failure. D/ / 06/11/2018 10:05:11 Krista Yuen MD / [email or web address] Interpreting Provider: Krista Yuen MD Active Medications Apixaban (Eliquis) 5 mg PO BID [place] Stop: 12/10/18 21:01 Last Admin: 06/12/18 10:18 Dose: 5 mg Atorvastatin Calcium (Lipitor) 40 mg PO HS [place] Stop: 12/10/18 21:01 Last Admin: 06/11/18 21:21 Dose: 40 mg Dextrose/Water (Dextrose 50% (Syg)) 25 ml IVP AD PRN PRN Reason: Hypoglycemia Stop: 12/10/18 17:17 Furosemide (Lasix) 20 mg IVP BIDDIURETIC [place] Stop: 12/10/18 10:46 Last Admin: 06/12/18 10:17 Dose: Not Given Glucagon (Glucagen) 1 mg IM ONCE PRN PRN Reason: Hypoglycemia Stop: 12/10/18 17:17 Glucose (Gluctose) 15 gm PO ONCE PRN PRN Reason: Hypoglycemia Stop: 12/10/18 17:17 Glucose (Gluctose) 30 gm PO ONCE PRN PRN Reason: Hypoglycemia Stop: 12/10/18 17:17 Dextrose (Dextrose 5%) 1,000 mls @ 100 mls/hr IVC .Q10H PRN PRN Reason: HYPOGLYCEMIA Stop: 12/10/18 17:17 Albumin Human (Flexbumin) 25 gm in 100 mls @ 60 mls/hr IVPB CONT COUNT INCLUDES THE [facility] Stop: 06/12/18 15:24 Last Infusion: 06/11/18 19:20 Dose: Infused Albumin Human (Flexbumin) 25 gm in 100 mls @ 60 mls/hr IVPB CONT COUNT INCLUDES THE [facility] Stop: 06/13/18 07:39 Last Admin: 06/12/18 06:39 Dose: 60 mls/hr Albumin Human (Flexbumin) 25 gm in 100 mls @ 60 mls/hr IVPB CONT COUNT INCLUDES THE [facility] Stop: 06/14/18 07:39 Insulin Human Lispro (Humalog) 0 units SQ TIDAC COUNT INCLUDES THE [facility] PRN Reason: Protocol Stop: 12/11/18 07:31 Last Admin: 06/12/18 10:19 Dose: Not Given Levalbuterol HCl (Xopenex) 1.25 mg IH [id number] COUNT INCLUDES THE [facility] Stop: 12/11/18 10:31 Last Admin: 06/12/18 08:47 Dose: 1.25 mg Lisinopril (Zestril) 5 mg PO DAILY COUNT INCLUDES THE [facility] PRN Reason: Protocol Stop: 12/11/18 09:01 Last Admin: 06/12/18 10:18 Dose: Not Given Magnesium Oxide (Mag-Ox) 400 mg PO DAILY COUNT INCLUDES THE [facility] PRN Reason: Protocol Stop: 12/11/18 09:01 Last Admin: 06/12/18 10:18 Dose: 400 mg Metoprolol Succinate (Toprol Xl) 100 mg PO DAILY COUNT INCLUDES THE [facility] Stop: 12/11/18 09:01 Last Admin: 06/12/18 10:18 Dose: 100 mg Naloxone HCl (Narcan) 0.4 mg IVP Q2MIN PRN PRN Reason: SEE COMMENTS Stop: 12/10/18 17:08 Nicotine (Nicoderm) 21 mg TD DAILY COUNT INCLUDES THE [facility] PRN Reason: Protocol Stop: 12/11/18 09:01 Last Admin: 06/12/18 10:17 Dose: 21 mg Omeprazole (Prilosec) 20 mg PO DAILY COUNT INCLUDES THE [facility] PRN Reason: Protocol Stop: 12/11/18 09:01 Last Admin: 06/12/18 10:18 Dose: 20 mg Potassium Chloride (Potassium Chloride) 10 meq PO DAILY COUNT INCLUDES THE [facility] Stop: 12/11/18 09:01 Last Admin: 06/12/18 10:18 Dose: 10 meq Senna (Senna) 8.6 mg PO DAILY COUNT INCLUDES THE [facility] Stop: 12/11/18 09:01 Last Admin: 06/12/18 10:17 Dose: 8.6 mg Laboratory Tests 06/11/18 04:18 Creatinine 0.81 - Imaging and Cardiology Chest Xray: report reviewed Echo: pending, report reviewed - EKG Interpretation EKG results cardiology: other (Telemetry reviewed with average HR previous 12 hours noted to be 124, a.fib RVR. PVCs noted.) Consult Discharge Plan - Plan Referrals: Chhaya Avila, IRRIGATION TAX ASSESSOR COLLECTOR [Primary Care Provider] -
[2018-06-12 11:45] LABS: BUN/Creatinine Ratio 14 (6-26); Blood Urea Nitrogen 11 mg/dL (8-23); Carbon Dioxide 39 mEq/L (23-29); Chloride 100 mEq/L (98-107); Glucose 146 mg/dL (70-105); Osmolality,Calculated 296 (280-300); Potassium 4.1 mEq/L (3.5-5.1); Sodium 142 mEq/L (136-145); eGFR For Non-African Americans > 60 (> 60)
[2018-06-12 12:15] LABS: Immature Granulocytes % 0.1 % (0-4)
[2018-06-12 12:16] LABS: Basophils # 0.1 K/mcL (0.0-0.2); Eosinophils # 0.4 K/mcL (0.0-0.6); Eosinophils % 4.9 %; Hematocrit 46.5 % (37.5-50.1); Hemoglobin 13.4 g/dL (12.9-16.9); Lymphocytes # 0.9 K/mcL (0.6-4.6); Lymphocytes % 10.6 %; Mean Corpuscular HGB Conc 28.8 g/dL (31.6-35.5); Mean Corpuscular Hemoglobin 23.7 pg (28.0-33.3); Mean Corpuscular Volume 82.3 fL (83.0-100.0); Mean Platelet Volume 10.9 fL (9.4-12.4); Monocytes # 0.7 K/mcL (0.0-1.3); Monocytes % 8.8 %; Neutrophils # 6.1 K/mcL (1.6-8.9); Platelet Count 157 K/mcL (140-400); Red Blood Count 5.65 M/mcL (4.19-5.50); Red Cell Distribution Width 19.5 % (11.5-14.5); Segmented Neutrophils % 74.6 %
[2018-06-12 13:32] LABS: Platelet Estimate Normal (Normal)
[2018-06-12] MEDS ORDERED: Perflutren Lipid Microsphere 1.3 ML in 0.9 % Sodium Chloride 8.7 ML IVP ONE (14:27)
[2018-06-12] MEDS: *HR* Digoxin 0.5 MG/2 ML AMPUL IVP SCH ×2 (15:03→19:53)
--- NOTE | 2018-06-12 17:05 | Electrocardiograph Report ---
[facility] Test Date: 2018-06-10 Pat Name: Lawrence Orozco Department: EXAMC2 Room: 2NE32 Gender: M Stockroom Selector: : 1955 Requested By: Toni Mcfadden Order Number: [id number] Reading MD: Faizan Hannah Measurements Intervals Foreman Rate: 159 P: [place]: QRS: 119 QRSD: 96 T: -27 QT: 290 QTc: 472 Interpretive Statements Atrial fibrillation with rapid V-rate Ventricular premature complex Right axis deviation Minimal ST depression, inferior leads Borderline T abnormalities, diffuse leads Electronically Signed On 06-12-2018 17:04:01 EDT by Faizan Hannah
--- NOTE | 2018-06-12 18:47 | Internal Med Progress Note ---
Hospitalist Progress Note - Encounter Date of Encounter: 06/12/18 Time of Encounter: 11:00 - Subjective Interval History: Patient with a one-week history of increased abdominal girth and shortness of breath and found to have moderate ascites with splenomegaly on ultrasound done on 06/02/18 Patient on admission also found to have atrial fibrillation with RVR with mild exacerbation of systolic heart failure. Patient status post paracentesis on 06/11/18 with total 5 L removed Patient's hypotension improving this afternoon - Exam Vitals: Temp Pulse Resp BP Pulse Ox 98.6 F 86 18 124/90 96 06/12/18 16:49 06/12/18 16:49 06/12/18 16:49 06/12/18 16:49 06/12/18 16:49 Exam: Gen.: Nonacute distress, alert and oriented 3 ENT: Mucosal membranes moist Respiratory: Respiratory distress with expiratory wheezes bilaterally Cardiovascular: Normal S1 and S2 regular rate rhythm no murmurs rubs or gallops Abdomen: Distended and tight Extremities: No lower extremity edema Skin: Excoriations with slight erythematous patch - Assessment and Plan (1) Ascites Current Visit: Yes Status: Acute Assessment and Plan: Patient reports a two-month history of increased abdominal girth which has worsened in the last month in addition to shortness of breath. In the ER, patient was found to have elevated total bilirubin of 1.7. Patient was recently evaluated by primary care provider in the right upper quadrant ultrasound was done on 06/02/18 which showed moderate volume ascites with splenomegaly. Abdominal/pelvis CT on 06/10/18 showed ascites with cirrhosis and splenomegaly in addition to portal hypertension. Status post paracentesis on 06/11/18 for total of 5 L of fluid removed (2) Hepatic cirrhosis Current Visit: Yes Status: Acute Assessment and Plan: Abdominal/pelvis CT showed ascites with cirrhosis and splenomegaly in addition to portal hypertension. Patient was recently evaluated by primary care provider in the right upper quadrant ultrasound was done on 06/02/18 which showed moderate volume ascites with splenomegaly. Patient found to have low AST and ALT values on admission but elevated total bilirubin Viral hepatitis panel negative GI consulted as above and appreciate recommendations (3) Acute on chronic systolic (congestive) heart failure Current Visit: Yes Status: Acute Assessment and Plan: Patient reports of increased shortness of breath which could be secondary to above ascites as well. However, patient was found to have an elevated BNP of 405 Patient had a recent echocardiogram on 03/04/18 which showed LVEF of 40-45% with mild global hypokinesis. Continue IV diuresis Cardiology consulted and appreciate recommendations (4) Atrial fibrillation with rapid ventricular response Current Visit: Yes Status: Acute Assessment and Plan: On admission, patient was found to have atrial fibrillation with RVR with heart rates ranging from 122-149 Cardiology following with recommendations to continue Cardizem and to start patient on IV digoxin Appreciate any further recommendations. (5) Diabetes Current Visit: Yes Status: Acute Assessment and Plan: Coverage with sliding-scale insulin (6) COPD (chronic obstructive pulmonary disease) Current Visit: Yes Status: Acute Assessment and Plan: Continue scheduled dual nebs for expiratory wheezes (7) Smoker Current Visit: Yes Status: Acute Assessment and Plan: Nicotine replacement offered DVT Prophylaxis: Patient on Eliquis as above - Time Spent with Patient Total time spent is greater than 50% in coordination of care (as documented) at patient's floor/unit and/or counseling patient: Internal Medicine: Result - Labs CBC & Chem 7: 06/12/18 12:06 06/12/18 11:19 Labs: Short CBC 06/12/18 Range/Units 12:06 WBC 8.2 (4.3-11.1) K/mcL Hgb 13.4 D (12.9-16.9) g/dL Hct 46.5 (37.5-50.1) % Plt Count 157 (140-400) K/mcL Neutrophils # 6.1 (1.6-8.9) K/mcL BMP 06/12/18 11:19 Sodium 142 Potassium 4.1 Chloride 100 Carbon Dioxide 39 H BUN 11 Creatinine 0.81 Glucose 146 H Calcium 9.0 - ABG Interpretation ABG results: ABG ABG pH 7.48 pH Units (7.32-7.45) H 06/11/18 09:04 ABG pCO2 63 mmHg (35-45) H 06/11/18 09:04 ABG pO2 81 mmHg (85-104) L 06/11/18 09:04 ABG O2 Saturation 96 % (95-98) 06/11/18 09:04 PT/INR, D-dimer PT 22.0 Seconds (9.4-12.1) H 06/10/18 14:01 - Impressions Impressions Echocardiogram 06/12/18 09:08 Impressions: LVEF 40-45%. Mild global left ventricular systolic dysfunction. Mild concentric left ventricular hypertrophy. Mild left ventricular diastolic dysfunction. Mildly dilated left atrium and right atrium. Moderate right ventricular hypokinesis. RV not well visualized, likely mildly dilated. Diastolic D shape suggests RV volume overload. No significant valvular dysfunction Mild pulmonary hypertension. Estimated RA pressure is 15 mmHg. Left Ventricular Wall Motion: Rest Echo Findings The apex, apical inferior, mid inferior, basal inferior, apical anterior, mid anterior, basal anterior, apical septal, mid inferior septal, basal inferior septal, apical lateral, mid anterior lateral, basal anterior lateral, mid anterior septal, mid inferior lateral, basal anterior septal and basal inferior lateral alvarez were hypokinetic. Findings: Study Quality * Technically adequate exam. ECG Findings * Atrial fibrillation. Left Ventricle * LVEF 45%. * Mildly dilated left ventricle. * Mild concentric left ventricular hypertrophy. * Mild global left ventricular systolic dysfunction. * Mild left ventricular diastolic dysfunction. * Definity echo contrast was used. Right Ventricle * Mildly dilated right ventricle. * Moderate right ventricular hypokinesis. * Not well visualized. Diastolic D shape suggests RV volume overload. Left Atrium * Mildly dilated left atrium. Right Atrium * Mildly dilated right atrium. Interatrial Septum * Interatrial septum not well evaluated. Aortic Valve * Trileaflet aortic valve with normal function. * No aortic regurgitation. * No aortic stenosis. Mitral Valve * Normal mitral valve structure and function. * Trace mitral regurgitation. Tricuspid Valve * Normal tricuspid valve structure and function. * Trace tricuspid regurgitation. * Estimated RVSP is 39 mmHg. * Estimated RA pressure is 15 mmHg. * Mild pulmonary hypertension. Pulmonic Valve * Mild pulmonic regurgitation. Aorta * Normally sized aortic root. Pericardium * The pericardium appears normal. IVC * The IVC is dilated. * < 50% respiratory change. Consult Discharge Plan - Plan Referrals: Chhaya Avila, WATER METER MECHANIC [Primary Care Provider] - (1) Ascites Qualifiers: Ascites type: other type Qualified Code(s): R18.8 - Other ascites (2) Hepatic cirrhosis Qualifiers: Hepatic cirrhosis type: other cirrhosis Qualified Code(s): K74.69 - Other cirrhosis of liver (6) COPD (chronic obstructive pulmonary disease) Qualifiers: Emphysema type: unspecified
[2018-06-13 00:34] LABS: Fluid Source for Albumin PERITONEAL
[2018-06-13] MEDS: *HR* Digoxin 0.5 MG/2 ML AMPUL IVP SCH ×2 (01:36→16:03)
[2018-06-13] MEDS: Levalbuterol Neb 1.25 MG/3 ML IH SCH ×4 (04:32→22:31)
[2018-06-13] MEDS ORDERED: Furosemide 40 MG/4 ML VIAL IVP ONE (04:40)
[2018-06-13 09:23] LABS: Basophils % 0.6 %; Eosinophils # 0.3 K/mcL (0.0-0.6); Eosinophils % 4.9 %; Hematocrit 53.1 % (37.5-50.1); Immature Granulocytes % 0.3 % (0-4); Lymphocytes # 0.8 K/mcL (0.6-4.6); Lymphocytes % 11.3 %; Mean Corpuscular Hemoglobin 24.1 pg (28.0-33.3); Mean Corpuscular Volume 83.1 fL (83.0-100.0); Mean Platelet Volume 10.8 fL (9.4-12.4); Monocytes # 0.5 K/mcL (0.0-1.3); Platelet Count 125 K/mcL (140-400); Red Blood Count 6.39 M/mcL (4.19-5.50); Red Cell Distribution Width 18.9 % (11.5-14.5); Segmented Neutrophils % 74.9 %
[2018-06-13 09:25] LABS: Hemoglobin 15.4 g/dL (12.9-16.9)
[2018-06-13 09:34] LABS: BUN/Creatinine Ratio 17 (6-26); Blood Urea Nitrogen 12 mg/dL (8-23); Calcium 9.7 mg/dL (8.6-10.3); Carbon Dioxide 40 mEq/L (23-29); Chloride 98 mEq/L (98-107); Glucose 120 mg/dL (70-105); Osmolality,Calculated 297 (280-300); Potassium 3.7 mEq/L (3.5-5.1); Sodium 143 mEq/L (136-145); eGFR For Non-African Americans > 60 (> 60)
--- NOTE | 2018-06-13 09:42 | Internal Med Progress Note ---
Hospitalist Progress Note - Encounter Date of Encounter: 06/13/18 Time of Encounter: 11:00 - Subjective Interval History: Patient with a one-week history of increased abdominal girth and shortness of breath and found to have moderate ascites with splenomegaly on ultrasound done on 06/02/18 Patient on admission also found to have atrial fibrillation with RVR with mild exacerbation of systolic heart failure. Patient status post paracentesis on 06/11/18 with total 5 L removed Patient still has atrial fibrillation with RVR after digoxin load on 06/12/18 Patient with good urinary output with IV diuresis - Exam Vitals: Temp Pulse Resp BP Pulse Ox 97.6 F 98 19 136/87 97 06/13/18 07:37 06/13/18 07:37 06/13/18 07:37 06/13/18 07:37 06/13/18 07:37 Exam: Gen.: Nonacute distress, alert and oriented 3 ENT: Mucosal membranes moist Respiratory: Respiratory distress with expiratory wheezes bilaterally Cardiovascular: Normal S1 and S2 regular rate rhythm no murmurs rubs or gallops Abdomen: Distended and tight Extremities: Bilateral lower extremity edema Skin: Excoriations with slight erythematous patch - Assessment and Plan (1) Ascites Current Visit: Yes Status: Acute Assessment and Plan: Patient was recently evaluated by primary care provider in the right upper quadrant ultrasound was done on 06/02/18 which showed moderate volume ascites with splenomegaly. Abdominal/pelvis CT on 06/10/18 showed ascites with cirrhosis and splenomegaly in addition to portal hypertension. Status post paracentesis on 06/11/18 for total of 5 L of fluid removed Today is day 3 of 3 for albumin infusion; patient was hypotensive but now is resolved (2) Hepatic cirrhosis Current Visit: Yes Status: Acute Assessment and Plan: Abdominal/pelvis CT showed ascites with cirrhosis and splenomegaly in addition to portal hypertension. Patient was recently evaluated by primary care provider in the right upper quadrant ultrasound was done on 06/02/18 which showed moderate volume ascites with splenomegaly. Patient found to have low AST and ALT values on admission but elevated total bilirubin Viral hepatitis panel negative GI consulted as above and appreciate recommendations (3) Acute on chronic systolic (congestive) heart failure Current Visit: Yes Status: Acute Assessment and Plan: Patient reports of increased shortness of breath which could be secondary to above ascites as well. However, patient was found to have an elevated BNP of 405 Patient had a recent echocardiogram on 03/04/18 which showed LVEF of 40-45% with mild global hypokinesis. Patient with a 24-hour urinary output of 1050 mL on IV Lasix 20 mg twice daily Cardiology consulted and appreciate recommendations (4) Atrial fibrillation with rapid ventricular response Current Visit: Yes Status: Acute Assessment and Plan: On admission, patient was found to have atrial fibrillation with RVR with heart rates ranging from 122-149 Patient still with rapid ventricular rate disposed digoxin load on 06/12/18 Cardiology following and appreciate recommendations (5) Diabetes Current Visit: Yes Status: Acute Assessment and Plan: Controlled; continue coverage with sliding-scale insulin (6) COPD (chronic obstructive pulmonary disease) Current Visit: Yes Status: Acute Assessment and Plan: Continue scheduled Xopenex for expiratory wheezes (7) Smoker Current Visit: Yes Status: Acute Assessment and Plan: Nicotine replacement offered DVT Prophylaxis: Patient on Eliquis as above - Time Spent with Patient Total time spent is greater than 50% in coordination of care (as documented) at patient's floor/unit and/or counseling patient: Internal Medicine: Result - Labs CBC & Chem 7: 06/13/18 08:45 06/13/18 08:45 Labs: Short CBC 06/12/18 06/13/18 Range/Units 12:06 08:45 WBC 8.2 6.7 (4.3-11.1) K/mcL Hgb 13.4 D 15.4 D (12.9-16.9) g/dL Hct 46.5 53.1 H (37.5-50.1) % Plt Count 157 125 L (140-400) K/mcL Neutrophils # 6.1 (1.6-8.9) K/mcL BMP 06/12/18 06/13/18 11:19 08:45 Sodium 142 143 Potassium 4.1 3.7 Chloride 100 98 Carbon Dioxide 39 H 40 H* BUN 11 12 Creatinine 0.81 0.70 Glucose 146 H 120 H Calcium 9.0 9.7 - ABG Interpretation ABG results: ABG ABG pH 7.48 pH Units (7.32-7.45) H 06/11/18 09:04 ABG pCO2 63 mmHg (35-45) H 06/11/18 09:04 ABG pO2 81 mmHg (85-104) L 06/11/18 09:04 ABG O2 Saturation 96 % (95-98) 06/11/18 09:04 PT/INR, D-dimer PT 22.0 Seconds (9.4-12.1) H 06/10/18 14:01 - Impressions Impressions Echocardiogram 06/12/18 09:08 Impressions: LVEF 40-45%. Mild global left ventricular systolic dysfunction. Mild concentric left ventricular hypertrophy. Mild left ventricular diastolic dysfunction. Mildly dilated left atrium and right atrium. Moderate right ventricular hypokinesis. RV not well visualized, likely mildly dilated. Diastolic D shape suggests RV volume overload. No significant valvular dysfunction Mild pulmonary hypertension. Estimated RA pressure is 15 mmHg. Left Ventricular Wall Motion: Rest Echo Findings The apex, apical inferior, mid inferior, basal inferior, apical anterior, mid anterior, basal anterior, apical septal, mid inferior septal, basal inferior septal, apical lateral, mid anterior lateral, basal anterior lateral, mid anterior septal, mid inferior lateral, basal anterior septal and basal inferior lateral alvarez were hypokinetic. Findings: Study Quality * Technically adequate exam. ECG Findings * Atrial fibrillation. Left Ventricle * LVEF 45%. * Mildly dilated left ventricle. * Mild concentric left ventricular hypertrophy. * Mild global left ventricular systolic dysfunction. * Mild left ventricular diastolic dysfunction. * Definity echo contrast was used. Right Ventricle * Mildly dilated right ventricle. * Moderate right ventricular hypokinesis. * Not well visualized. Diastolic D shape suggests RV volume overload. Left Atrium * Mildly dilated left atrium. Right Atrium * Mildly dilated right atrium. Interatrial Septum * Interatrial septum not well evaluated. Aortic Valve * Trileaflet aortic valve with normal function. * No aortic regurgitation. * No aortic stenosis. Mitral Valve * Normal mitral valve structure and function. * Trace mitral regurgitation. Tricuspid Valve * Normal tricuspid valve structure and function. * Trace tricuspid regurgitation. * Estimated RVSP is 39 mmHg. * Estimated RA pressure is 15 mmHg. * Mild pulmonary hypertension. Pulmonic Valve * Mild pulmonic regurgitation. Aorta * Normally sized aortic root. Pericardium * The pericardium appears normal. IVC * The IVC is dilated. * < 50% respiratory change. Chest X-Ray 06/13/18 04:37 IMPRESSION: Worsening pulmonary edema. D/ / Jewel Petersen MD / Jewel Petersen MD Interpreting Provider: Jewel Petersen MD Consult Discharge Plan - Plan Referrals: Chhaya Avila, SPICE CLEANER [Primary Care Provider] - (1) Ascites Qualifiers: Ascites type: other type Qualified Code(s): R18.8 - Other ascites (2) Hepatic cirrhosis Qualifiers: Hepatic cirrhosis type: other cirrhosis Qualified Code(s): K74.69 - Other cirrhosis of liver (6) COPD (chronic obstructive pulmonary disease) Qualifiers: Emphysema type: unspecified
[2018-06-13 09:57] LABS: Anisocytosis 1+ (Not Present)
[2018-06-13 09:58] LABS: Platelet Estimate Normal (Normal)
[2018-06-13 10:05] LABS: ABG Base Excess 14 mEq/L (-2 to 3); ABG HCO3 44 mEq/L (21-27); ABG Oxygen Saturation 90 % (95-98); ABG PCO2 76 mmHg (35-45); ABG PH 7.37 pH Units (7.32-7.45); ABG PO2 64 mmHg (85-104); ABG TCO2 46 mEq/L (20-26)
[2018-06-13] MEDS: Albumin 25% 25gram/100mL 25 GM/100 ML IV.SOLN IVPB SCH ×3 (10:22→19:37)
[2018-06-13] MEDS: Apixaban 5 MG TABLET PO SCH ×2 (10:23→21:46)
[2018-06-13] MEDS: Sennosides 8.6 MG TABLET PO SCH (10:23)
[2018-06-13] MEDS: Metoprolol XL (24 HR) Succ 50 MG TAB.ER.24H PO SCH (10:23)
[2018-06-13] MEDS: Magnesium Oxide 400 MG TABLET PO SCH (10:23)
[2018-06-13] MEDS: Nicotine 21 MG PATCH.TD24 TD SCH (10:23)
[2018-06-13] MEDS: Insulin LISPRO 300 UNITS/3 ML VIAL SQ SCH ×3 (10:24→20:07)
[2018-06-13] MEDS: Furosemide 20 MG/2 ML VIAL IVP SCH (10:24)
--- NOTE | 2018-06-13 11:49 | Cardiology Progress Note ---
Date of Encounter: 06/13/18 Time of Encounter: 09:45 Assessment and Plan (1) Congestive heart failure Current Visit: Yes Status: Acute Per cardiology: -Bi-ventricular heart failure. -ADmitted with increased shortness of breath. Known NICM LVEF 40% 02/2018. [facility] at [facility] without intervention. -BNP 405. -Also noted to have cirrhosis and ascites s/p paracentesis. Of note, NO RV dysufnction on previous TTE. -Repeat TTE was performed with LVEF 40-45% global hypokinesis, mild concentric LVH, mild diastolic dysfunction, moderate RV hypokinesis, likely mildly dilated RV, RV volume overload, mild PH. -Initial chest x-ray with no acute process, however yesterdays chest x-ray with interstitial edema. TOdays chest x-ray with worsening pulmonary edema. Was given 40IV lasix about 0440. -ON IV lasix. -Patient's dry weight is about 257 pounds, current weight 251 pounds. -On BB, rené inhibitor, can hold rené inhibitor with hypotension. -Renal function stable, will increase IV lasix. Will add aldactone. Watch renal function and potassium closely. -Strict i/os, fluid restriction, daily weights. -Suspect volume overload multi-factoral. Qualifiers: Heart failure type: systolic Heart failure chronicity: acute on chronic Qualified Code(s): I50.23 - Acute on chronic systolic (congestive) heart failure (2) Atrial fibrillation with rapid ventricular response Current Visit: Yes Status: Acute Per cardiology: -Known PAF -Average HR previous 12 hours noted to be 118, a.fib. Improved -ON BB. -Known cardiomyopathy, LVEF 40%. -On eliquis for anticoagulation. -Was given IV dig load yesterday, into today. -Continue BB, would not recommend CCB with cardiomyopathy. -Will given extra 25mg toprol now. Monitor BP closely. Discussion w patient/family: The assessment and plan as outlined above was discussed with the patient and family who expressed understanding and agreement. All questions were answered. Thank you for involving us in the care of your patient. Please call with any questions. Discussed and reviewed with . Subjective Principal diagnosis: a.fib RVR, CHF Interval history: Pateint reports breathing improved today, however conversational dyspnea noted. Family at bedside. Objective Vital Signs, Last 4 Hours Temp Pulse Resp BP Pulse Ox 09/16/18 11:27 98.1 F 79 18 107/64 89 06/13/18 10:49 18 136/87 94 General: Conversant, No Apparent Distress HEENT: Atraumatic, Normocephaly, Mucus Membranes Moist Neck: No JVD, Normal carotid pulses Cardiac: Normal S1 and S2, No Murmur, Other (Irregularly irregular) Lungs: Other (Lung sounds diminished throughout) Neuro: Alert and responsive, No focal deficits noted Abdomen: Non-Tender, Other (Firm) Skin: No rashes noted on visualized skin Musculoskeletal: No Chest Wall Tenderness Extremities: No Clubbing, No Cyanosis, No Edema, Normal Pulses Results 06/13/18 08:45 06/13/18 08:45 Lab Results Impressions Echocardiogram 06/12/18 09:08 Impressions: LVEF 40-45%. Mild global left ventricular systolic dysfunction. Mild concentric left ventricular hypertrophy. Mild left ventricular diastolic dysfunction. Mildly dilated left atrium and right atrium. Moderate right ventricular hypokinesis. RV not well visualized, likely mildly dilated. Diastolic D shape suggests RV volume overload. No significant valvular dysfunction Mild pulmonary hypertension. Estimated RA pressure is 15 mmHg. Left Ventricular Wall Motion: Rest Echo Findings The apex, apical inferior, mid inferior, basal inferior, apical anterior, mid anterior, basal anterior, apical septal, mid inferior septal, basal inferior septal, apical lateral, mid anterior lateral, basal anterior lateral, mid anterior septal, mid inferior lateral, basal anterior septal and basal inferior lateral alvarez were hypokinetic. Findings: Study Quality * Technically adequate exam. ECG Findings * Atrial fibrillation. Left Ventricle * LVEF 45%. * Mildly dilated left ventricle. * Mild concentric left ventricular hypertrophy. * Mild global left ventricular systolic dysfunction. * Mild left ventricular diastolic dysfunction. * Definity echo contrast was used. Right Ventricle * Mildly dilated right ventricle. * Moderate right ventricular hypokinesis. * Not well visualized. Diastolic D shape suggests RV volume overload. Left Atrium * Mildly dilated left atrium. Right Atrium * Mildly dilated right atrium. Interatrial Septum * Interatrial septum not well evaluated. Aortic Valve * Trileaflet aortic valve with normal function. * No aortic regurgitation. * No aortic stenosis. Mitral Valve * Normal mitral valve structure and function. * Trace mitral regurgitation. Tricuspid Valve * Normal tricuspid valve structure and function. * Trace tricuspid regurgitation. * Estimated RVSP is 39 mmHg. * Estimated RA pressure is 15 mmHg. * Mild pulmonary hypertension. Pulmonic Valve * Mild pulmonic regurgitation. Aorta * Normally sized aortic root. Pericardium * The pericardium appears normal. IVC * The IVC is dilated. * < 50% respiratory change. Chest X-Ray 06/13/18 04:37 IMPRESSION: Worsening pulmonary edema. D/ / Jewel Petersen MD / Jewel Petersen MD Interpreting Provider: Jewel Petersen MD Active Medications Apixaban (Eliquis) 5 mg PO BID [place] Stop: 12/10/18 21:01 Last Admin: 06/13/18 10:23 Dose: 5 mg Atorvastatin Calcium (Lipitor) 40 mg PO HS [place]ISHA Stop: 12/10/18 21:01 Last Admin: 06/12/18 19:53 Dose: 40 mg Dextrose/Water (Dextrose 50% (Syg)) 25 ml IVP AD PRN PRN Reason: Hypoglycemia Stop: 12/10/18 17:17 Furosemide (Lasix) 40 mg IVP BID [place] Stop: 12/13/18 21:01 Glucagon (Glucagen) 1 mg IM ONCE PRN PRN Reason: Hypoglycemia Stop: 12/10/18 17:17 Glucose (Gluctose) 15 gm PO ONCE PRN PRN Reason: Hypoglycemia Stop: 12/10/18 17:17 Glucose (Gluctose) 30 gm PO ONCE PRN PRN Reason: Hypoglycemia Stop: 12/10/18 17:17 Dextrose (Dextrose 5%) 1,000 mls @ 100 mls/hr IVC .Q10H PRN PRN Reason: HYPOGLYCEMIA Stop: 12/10/18 17:17 Albumin Human (Flexbumin) 25 gm in 100 mls @ 60 mls/hr IVPB CONT [place] Stop: 06/14/18 07:39 Last Admin: 06/13/18 10:22 Dose: 60 mls/hr Insulin Human Lispro (Humalog) 0 units SQ TIDAC [place]HA PRN Reason: Protocol Stop: 12/11/18 07:31 Last Admin: 06/13/18 10:24 Dose: Not Given Levalbuterol HCl (Xopenex) 1.25 mg IH [id number] [place] Stop: 12/11/18 10:31 Last Admin: 06/13/18 10:49 Dose: 1.25 mg Lisinopril (Zestril) 5 mg PO DAILY [place] PRN Reason: Protocol Stop: 12/11/18 09:01 Last Admin: 06/13/18 10:25 Dose: 5 mg Magnesium Oxide (Mag-Ox) 400 mg PO DAILY [place] PRN Reason: Protocol Stop: 12/11/18 09:01 Last Admin: 06/13/18 10:23 Dose: 400 mg Metoprolol Succinate (Toprol Xl) 100 mg PO DAILY [place] Stop: 12/11/18 09:01 Last Admin: 06/13/18 10:23 Dose: 100 mg Metoprolol Succinate (Toprol Xl) 25 mg PO ONCE ONE Stop: 06/14/18 11:45 Naloxone HCl (Narcan) 0.4 mg IVP Q2MIN PRN PRN Reason: SEE COMMENTS Stop: 12/10/18 17:08 Nicotine (Nicoderm) 21 mg TD DAILY [place] PRN Reason: Protocol Stop: 12/11/18 09:01 Last Admin: 06/13/18 10:23 Dose: 21 mg Omeprazole (Prilosec) 20 mg PO DAILY [place] PRN Reason: Protocol Stop: 12/11/18 09:01 Last Admin: 06/13/18 10:25 Dose: 20 mg Potassium Chloride (Potassium Chloride) 10 meq PO DAILY [place] Stop: 12/11/18 09:01 Last Admin: 06/13/18 10:23 Dose: 10 meq Senna (Senna) 8.6 mg PO DAILY [place] Stop: 12/11/18 09:01 Last Admin: 06/13/18 10:23 Dose: 8.6 mg Spironolactone (Aldactone) 12.5 mg PO DAILY [facility] Stop: 12/13/18 11:46 Laboratory Tests 06/13/18 06/13/18 08:45 08:45 Hgb 15.4 D Plt Count 125 L Creatinine 0.70 - Imaging and Cardiology Chest Xray: report reviewed Echo: report reviewed - EKG Interpretation EKG results cardiology: other (Telemetry reviewed with average HR previous 12 hours noted to be 118, a.fib RVR. PVCS noted.) Consult Discharge Plan - Plan Referrals: Chhaya Avila, COMPUTER SYSTEMS MANAGER [Primary Care Provider] -
[2018-06-13] MEDS ORDERED: *HR* Digoxin 0.5 MG/2 ML AMPUL IVP ONE (15:15)
[2018-06-13] MEDS: Spironolactone 25 MG TABLET PO SCH (15:58)
[2018-06-13] MEDS: Furosemide 40 MG/4 ML VIAL IVP SCH (21:47)
[2018-06-14] MEDS: Levalbuterol Neb 1.25 MG/3 ML IH SCH ×4 (04:11→21:10)
--- NOTE | 2018-06-14 09:15 | Internal Med Progress Note ---
Hospitalist Progress Note - Encounter Date of Encounter: 06/14/18 Time of Encounter: 11:00 - Subjective Interval History: Patient with a one-week history of increased abdominal girth and shortness of breath and found to have moderate ascites with splenomegaly on ultrasound done on 06/02/18 Patient on admission also found to have atrial fibrillation with RVR with mild exacerbation of systolic heart failure. Patient status post paracentesis on 06/11/18 with total 5 L removed Patient still has atrial fibrillation with RVR after digoxin load on 06/12/18 Patient with good urinary output over past 24 hours (4L) with IV diuresis - Exam Vitals: Temp Pulse Resp BP Pulse Ox 97.3 F L 96 18 123/87 93 06/14/18 08:13 06/14/18 08:13 06/14/18 08:13 06/14/18 08:13 06/14/18 05:25 Exam: Gen.: Nonacute distress, alert and oriented 3 ENT: Mucosal membranes moist Respiratory: Respiratory distress with expiratory wheezes bilaterally Cardiovascular: Normal S1 and S2 regular rate rhythm no murmurs rubs or gallops Abdomen: Distended and tight Extremities: Bilateral lower extremity edema Skin: Excoriations with slight erythematous patch - Assessment and Plan (1) Ascites Current Visit: Yes Status: Acute Assessment and Plan: Patient was recently evaluated by primary care provider in the right upper quadrant ultrasound was done on 06/02/18 which showed moderate volume ascites with splenomegaly. Abdominal/pelvis CT on 06/10/18 showed ascites with cirrhosis and splenomegaly in addition to portal hypertension. Status post paracentesis on 06/11/18 for total of 5 L of fluid removed Patient completed a 3 day course of albumin infusion; patient was hypotensive but no resolved Patient currently receiving IV Lasix 40 mg twice daily in addition to his spironolactone 12.5 mg daily Patient's abdominal girth has increased since last paracentesis on 06/11/18 and also having more shortness of breath GI will reevaluate with ultrasound for potential reaccumulation of abdominal ascites (2) Hepatic cirrhosis Current Visit: Yes Status: Acute Assessment and Plan: Abdominal/pelvis CT showed ascites with cirrhosis and splenomegaly in addition to portal hypertension. Patient was recently evaluated by primary care provider in the right upper quadrant ultrasound was done on 06/02/18 which showed moderate volume ascites with splenomegaly. Patient found to have low AST and ALT values on admission but elevated total bilirubin Viral hepatitis panel negative GI consulted as above and appreciate recommendations (3) Acute on chronic systolic (congestive) heart failure Current Visit: Yes Status: Acute Assessment and Plan: Patient reports of increased shortness of breath which could be secondary to above ascites as well. However, patient was found to have an elevated BNP of 405 Patient had a recent echocardiogram on 03/04/18 which showed LVEF of 40-45% with mild global hypokinesis. Repeat chest x-ray on 06/13/18 showed worsening pulmonary edema Patient has diuresed over 4 L in the last 24 hours with IV diuresis Cardiology consulted and appreciate recommendations (4) Atrial fibrillation with rapid ventricular response Current Visit: Yes Status: Acute Assessment and Plan: On admission, patient was found to have atrial fibrillation with RVR with heart rates ranging from 122-149 Patient still with rapid ventricular rate disposed digoxin load on 06/12/18 with heart rate in the low 100s Patient currently on metoprolol succinate 100 mg daily Cardiology following and appreciate recommendations (5) Diabetes Current Visit: Yes Status: Acute Assessment and Plan: Controlled; continue coverage with sliding-scale insulin (6) COPD (chronic obstructive pulmonary disease) Current Visit: Yes Status: Acute Assessment and Plan: Continue scheduled Xopenex for expiratory wheezes (7) Smoker Current Visit: Yes Status: Acute Assessment and Plan: Nicotine replacement offered DVT Prophylaxis: Patient on Eliquis as above - Time Spent with Patient Total time spent is greater than 50% in coordination of care (as documented) at patient's floor/unit and/or counseling patient: Internal Medicine: Result - Labs CBC & Chem 7: 06/14/18 09:26 06/14/18 09:26 Labs: Short CBC 06/13/18 Range/Units 08:45 WBC 6.7 (4.3-11.1) K/mcL Hgb 15.4 D (12.9-16.9) g/dL Hct 53.1 H (37.5-50.1) % Plt Count 125 L (140-400) K/mcL Neutrophils # 5.0 (1.6-8.9) K/mcL BMP 06/13/18 08:45 Sodium 143 Potassium 3.7 Chloride 98 Carbon Dioxide 40 H* BUN 12 Creatinine 0.70 Glucose 120 H Calcium 9.7 - ABG Interpretation ABG results: ABG ABG pH 7.37 pH Units (7.32-7.45) 06/13/18 10:01 ABG pCO2 76 mmHg (35-45) H* 06/13/18 10:01 ABG pO2 64 mmHg (85-104) L 06/13/18 10:01 ABG O2 Saturation 90 % (95-98) L 06/13/18 10:01 PT/INR, D-dimer PT 22.0 Seconds (9.4-12.1) H 06/10/18 14:01 Consult Discharge Plan - Plan Referrals: Chhaya Avila, GRID INSPECTOR [Primary Care Provider] - (1) Ascites Qualifiers: Ascites type: other type Qualified Code(s): R18.8 - Other ascites (2) Hepatic cirrhosis Qualifiers: Hepatic cirrhosis type: other cirrhosis Qualified Code(s): K74.69 - Other cirrhosis of liver (6) COPD (chronic obstructive pulmonary disease) Qualifiers: Emphysema type: unspecified
[2018-06-14 10:02] LABS: Hematocrit 51.4 % (37.5-50.1); Hemoglobin 14.6 g/dL (12.9-16.9); Mean Corpuscular HGB Conc 28.4 g/dL (31.6-35.5); Mean Corpuscular Hemoglobin 23.9 pg (28.0-33.3); Platelet Count 120 K/mcL (140-400); Red Blood Count 6.12 M/mcL (4.19-5.50); Red Cell Distribution Width 18.4 % (11.5-14.5)
[2018-06-14 10:09] LABS: Alanine Aminotransferase 5 Units/L (7-52); Albumin 4.1 g/dL (3.5-5.7); Albumin/Globulin Ratio 2.7 (1.1-2.2); Alkaline Phosphatase 59 Units/L (34-104); Aspartate Amino Transferase 9 Units/L (13-39); BUN/Creatinine Ratio 15 (6-26); Bilirubin,Total 1.8 mg/dL (0.3-1.0); Blood Urea Nitrogen 10 mg/dL (8-23); Calcium 9.4 mg/dL (8.6-10.3); Carbon Dioxide 44 mEq/L (23-29); Chloride 97 mEq/L (98-107); Globulin 1.5 g/dL (2.4-3.5); Glucose 160 mg/dL (70-105); Osmolality,Calculated 302 (280-300); Potassium 3.7 mEq/L (3.5-5.1); Sodium 145 mEq/L (136-145); Total Protein 5.6 g/dL (6.4-8.9); eGFR For Non-African Americans > 60 (> 60)
--- NOTE | 2018-06-14 10:42 | Gastroenterology Progress Note ---
<Gabriel Leonlyn Rod - Last Filed: 06/14/18 10:39> Date of Encounter: 06/14/18 Time of Encounter: 09:45 - Assessment and plan (1) Ascites Current Visit: Yes Status: Acute Assessment and plan: Pt is status post paracentesis but has reaccumulation. Will order repeat paracentesis and increase aldactone to 100 mg daily, discussed with Mago Jackson CNP with cardiology. He is continued on lasix 40 mg IV bid. Qualifiers: Ascites type: other type Qualified Code(s): R18.8 - Other ascites (2) Congestive heart failure Current Visit: Yes Status: Acute Qualifiers: Heart failure type: systolic Heart failure chronicity: acute on chronic Qualified Code(s): I50.23 - Acute on chronic systolic (congestive) heart failure (3) Hepatic cirrhosis Current Visit: Yes Status: Acute Assessment and plan: Patient presented with shortness of breath and increasing abdominal distention - Abdominal/pelvis CT demonstrated: ascites with cirrhosis and splenomegaly, portal HTN - Recently evaluated by PCP; RUQ ultrasound on 06/02 demonstrated moderate ascites with spinal megaly - Patient was recently evaluated by primary care provider in the right upper quadrant ultrasound was done on 06/02/18 which showed moderate volume ascites with splenomegaly - Unknown etiology at this time; possible cardiac cirrhosis - Qualifiers: Hepatic cirrhosis type: other cirrhosis Qualified Code(s): K74.69 - Other cirrhosis of liver (4) Itching Current Visit: Yes Status: Acute Assessment and plan: Likely due to increased bilirubin, will start cholestyramine at bedtime, repeat CMP today. - Time Spent With Patient Total time spent is greater than 50% in coordination of care (as documented) at patient's floor/unit and/or counseling patient: - Subjective Interval history: Patient was found to have moderate ascites with splenomegaly on ultrasound done on 06/02/18 Patient status post paracentesis on 06/11/18 with total 5 L removed. Patient still has atrial fibrillation with RVR after digoxin load on 06/12/18. Patient with good urinary output over past 24 hours (4L) with IV diuresis. He states he felt better after paracentesis but is starting to have increased shortness of breath. He is also complaining of intense itching on his stomach. - Constitutional Vitals: Temp Pulse Resp BP Pulse Ox 97.3 F L 96 18 123/87 93 06/14/18 08:13 06/14/18 08:13 06/14/18 08:13 06/14/18 08:13 06/14/18 05:25 Exam: CONSTITUTIONAL:~alert, no acute distress.~HEAD:~normocephalic.~EYES:~no jaundice.~NECK:~no obvious swelling.~HEART:~irregular rate and rhythm, no murmurs.~LUNGS:~fair air exchange on the right, poor on the left.~ABDOMEN:~ distended, ascites and edema noted, redness and excoriation from scratching noted, ~RECTAL EXAM:~Deferred.~EXTREMITIES:~no clubbing, cyanosis, 2+ BLE edema. ~SKIN:~mild jaundice noted.~NEUROLOGIC:~no obvious focal defect.~~~~ Results - Labs CBC & Chem 7: 06/14/18 09:26 06/14/18 09:26 Labs: Last Result Calcium 9.4 mg/dL (8.6-10.3) 06/14/18 09:26 Ferritin 22 ng/mL (20-250) 06/12/18 05:32 Troponin I < 0.03 ng/mL (< 0.04) 06/10/18 14:01 Peritoneal Appearance CLEAR (Clear) 06/11/18 Unknown Peritoneal Volume 1000.0 mL 06/11/18 Unknown Peritoneal RBC < 0.002 M/mcL (0.000-0.002) 06/11/18 Unknown Periton Tot Nuc Cells 295 TNC/mcL (0-300) 06/11/18 Unknown Periton Band Neuts Test Not Performed 06/11/18 Unknown Periton Lymphocytes % 68.0 % 06/11/18 Unknown Periton Monocytes % 2.0 % 06/11/18 Unknown Periton Other Cells % Test Not Performed 06/11/18 Unknown Peritoneal Tot Protein < 3.0 g/dL (No Ref Range) 06/11/18 Unknown Peritoneal LDH 58 Units/L (No Ref Range) 06/11/18 Unknown Peritoneal Glucose 115 mg/dL (No Ref Range) 06/11/18 Unknown Peritoneal Amylase 23 Units/L (No Ref Range) 06/11/18 Unknown Entire Visit Hgb 14.6 g/dL (12.9-16.9) 06/14/18 09:26 Hct 51.4 % (37.5-50.1) H 06/14/18 09:26 PT 22.0 Seconds (9.4-12.1) H 06/10/18 14:01 Ferritin 22 ng/mL (20-250) 06/12/18 05:32 Total Bilirubin 1.8 mg/dL (0.3-1.0) H 06/14/18 09:26 AST 9 Units/L (13-39) L 06/14/18 09:26 ALT 5 Units/L (7-52) L 06/14/18 09:26 Ammonia 47 mcmol/L (16-53) 06/10/18 14:01 Gugex-2-Vahwgslthqu 151 mg/dL (90-200) 06/12/18 05:32 Ceruloplasmin 24 mg/dL (17-54) 06/12/18 05:32 - ABG ABG results: ABG ABG pH 7.37 pH Units (7.32-7.45) 06/13/18 10:01 ABG pCO2 76 mmHg (35-45) H* 06/13/18 10:01 ABG pO2 64 mmHg (85-104) L 06/13/18 10:01 ABG O2 Saturation 90 % (95-98) L 06/13/18 10:01 PT/INR, D-dimer PT 22.0 Seconds (9.4-12.1) H 06/10/18 14:01 Consult Discharge Plan - Plan Referrals: Chhaya Avila, HEAT TREATER HELPER [Primary Care Provider] - <Hamzah Garzon - Last Filed: 06/14/18 17:37> Date of Encounter: 06/14/18 Time of Encounter: 15:00 - Time Spent With Patient Total time spent is greater than 50% in coordination of care (as documented) at patient's floor/unit and/or counseling patient: - Constitutional Vitals: Temp Pulse Resp BP Pulse Ox 98.2 F 115 21 126/79 6 06/14/18 16:57 06/14/18 16:57 06/14/18 16:57 06/14/18 16:57 06/14/18 16:57 Results - Labs CBC & Chem 7: 06/14/18 09:26 06/14/18 09:26 Labs: Last Result Calcium 9.4 mg/dL (8.6-10.3) 06/14/18 09:26 Ferritin 22 ng/mL (20-250) 06/12/18 05:32 Troponin I < 0.03 ng/mL (< 0.04) 06/10/18 14:01 Peritoneal Appearance CLEAR (Clear) 06/11/18 Unknown Peritoneal Volume 1000.0 mL 06/11/18 Unknown Peritoneal RBC < 0.002 M/mcL (0.000-0.002) 06/11/18 Unknown Periton Tot Nuc Cells 295 TNC/mcL (0-300) 06/11/18 Unknown Periton Band Neuts Test Not Performed 06/11/18 Unknown Periton Lymphocytes % 68.0 % 06/11/18 Unknown Periton Monocytes % 2.0 % 06/11/18 Unknown Periton Other Cells % Test Not Performed 06/11/18 Unknown Peritoneal Tot Protein < 3.0 g/dL (No Ref Range) 06/11/18 Unknown Peritoneal LDH 58 Units/L (No Ref Range) 06/11/18 Unknown Peritoneal Glucose 115 mg/dL (No Ref Range) 06/11/18 Unknown Peritoneal Amylase 23 Units/L (No Ref Range) 06/11/18 Unknown Entire Visit Hgb 14.6 g/dL (12.9-16.9) 06/14/18 09:26 Hct 51.4 % (37.5-50.1) H 06/14/18 09:26 PT 22.7 Seconds (9.4-12.1) H 06/14/18 10:49 Ferritin 22 ng/mL (20-250) 06/12/18 05:32 Total Bilirubin 1.8 mg/dL (0.3-1.0) H 06/14/18 09:26 AST 9 Units/L (13-39) L 06/14/18 09:26 ALT 5 Units/L (7-52) L 06/14/18 09:26 Ammonia 47 mcmol/L (16-53) 06/10/18 14:01 Ujjej-4-Hpmcliubhex 151 mg/dL (90-200) 06/12/18 05:32 Ceruloplasmin 24 mg/dL (17-54) 06/12/18 05:32 - ABG ABG results: ABG ABG pH 7.37 pH Units (7.32-7.45) 06/13/18 10:01 ABG pCO2 76 mmHg (35-45) H* 06/13/18 10:01 ABG pO2 64 mmHg (85-104) L 06/13/18 10:01 ABG O2 Saturation 90 % (95-98) L 06/13/18 10:01 PT/INR, D-dimer PT 22.7 Seconds (9.4-12.1) H 06/14/18 10:49 - Impressions Impressions Abdomen/Pelvis/Transvag US 06/14/18 10:00 IMPRESSION: Small amount of abdominal ascites seen on limited abdominal ultrasound. D/ / Aubrey Castaneda / Aubrey Castaneda Interpreting Provider: Aubrey Castaneda - Attending Attestation I have personally performed a face to face evaluation on this patient. I have reviewed and agree with the care plan. History and Exam by me shows: Pt seen at the bedside. Examination does has large abdomen. A: Patient with cirrhosis and also CHF Rec: Will increase Aldactone to her milligram a day continue Lasix. Patient will have an EGD done for varices screening in the morning as because of his other comorbidities will be hard to do him as an outpatient
[2018-06-14] MEDS: Spironolactone 25 MG TABLET PO SCH (10:49)
[2018-06-14] MEDS: Furosemide 40 MG/4 ML VIAL IVP SCH ×2 (10:49→17:06)
[2018-06-14] MEDS: Apixaban 5 MG TABLET PO SCH ×2 (10:50→21:27)
[2018-06-14] MEDS: Sennosides 8.6 MG TABLET PO SCH (10:50)
[2018-06-14] MEDS: Magnesium Oxide 400 MG TABLET PO SCH (10:50)
[2018-06-14] MEDS: Metoprolol XL (24 HR) Succ 50 MG TAB.ER.24H PO SCH ×2 (10:50→21:26)
[2018-06-14] MEDS: Nicotine 21 MG PATCH.TD24 TD SCH (10:51)
[2018-06-14] MEDS: Insulin LISPRO 300 UNITS/3 ML VIAL SQ SCH ×3 (10:51→17:06)
[2018-06-14 11:10] LABS: Prothrombin Time 22.7 Seconds (9.4-12.1)
--- NOTE | 2018-06-14 11:18 | Cardiology Progress Note ---
Date of Encounter: 06/14/18 Time of Encounter: 09:45 Assessment and Plan (1) Congestive heart failure Current Visit: Yes Status: Acute Per cardiology: -Bi-ventricular heart failure. -ADmitted with increased shortness of breath. Known NICM LVEF 40% 02/2018. C at [facility] without intervention. -BNP 405. -Also noted to have cirrhosis and ascites s/p paracentesis. -Repeat TTE was performed with LVEF 40-45% global hypokinesis, mild concentric LVH, mild diastolic dysfunction, moderate RV hypokinesis, likely mildly dilated RV, RV volume overload, mild PH. -Initial chest x-ray with no acute process, however repeat chest x-ray with interstitial edema. Yesterdays chest x-ray with worsening pulmonary edema. -ON IV lasix and aldactone. -Currently net negative 3200ml. -Patient's dry weight is about 257 pounds. -On BB, rené inhibitor. -Aldactone increased per GI team. Plan for paracentesis today. -Strict i/os, fluid restriction, daily weights. -Suspect volume overload multi-factoral. Qualifiers: Heart failure type: systolic Heart failure chronicity: acute on chronic Qualified Code(s): I50.23 - Acute on chronic systolic (congestive) heart failure (2) Atrial fibrillation with rapid ventricular response Current Visit: Yes Status: Acute Per cardiology: -Known PAF -Average HR previous 12 hours noted to be 116, a.fib. Improved -ON BB. -Known cardiomyopathy, LVEF 40%. -On eliquis for anticoagulation. -Was given IV dig load. -Will increase BB to total of 150mg toprol daily. Will give PRN IV lopressor for HR greater than 100. Would not recommend CCB with cardiomyopathy. -Will continue to monitor. Discussion w patient/family: The assessment and plan as outlined above was discussed with the patient who expressed understanding and agreement. All questions were answered. Thank you for involving us in the care of your patient. Please call with any questions. Discussed and reviewed with Subjective Principal diagnosis: a.fib RVR, CHF Interval history: Pateint reports breathing is ok. Conversational dyspnea noted. Objective Vital Signs, Last 4 Hours Temp Pulse Resp BP 06/14/18 08:13 97.3 F L 96 18 123/87 General: Conversant, Other (Conversational dyspnea noted.) HEENT: Atraumatic, Normocephaly, Mucus Membranes Moist Neck: No JVD, Normal carotid pulses Cardiac: Normal S1 and S2, No Murmur, Other (Irregularly irregular) Lungs: Other (Expiratory wheezes noted. Bilateral lung bases crackles noted. ) Neuro: Alert and responsive, No focal deficits noted Abdomen: Non-Tender, Other (Firm) Skin: No rashes noted on visualized skin Musculoskeletal: No Chest Wall Tenderness Extremities: No Clubbing, No Cyanosis, No Edema, Normal Pulses Results 06/14/18 09:26 06/14/18 09:26 Lab Results Active Medications Apixaban (Eliquis) 5 mg PO BID [facility] Stop: 12/10/18 21:01 Last Admin: 06/14/18 10:50 Dose: 5 mg Atorvastatin Calcium (Lipitor) 40 mg PO HS [facility] Stop: 12/10/18 21:01 Last Admin: 06/13/18 21:46 Dose: 40 mg Cholestyramine Resin (Cholestyramine) 4 gm PO HS [facility] Stop: 12/14/18 21:01 Dextrose/Water (Dextrose 50% (Syg)) 25 ml IVP AD PRN PRN Reason: Hypoglycemia Stop: 12/10/18 17:17 Furosemide (Lasix) 40 mg IVP BID [facility] Stop: 12/13/18 21:01 Last Admin: 06/14/18 10:49 Dose: 40 mg Glucagon (Glucagen) 1 mg IM ONCE PRN PRN Reason: Hypoglycemia Stop: 12/10/18 17:17 Glucose (Gluctose) 15 gm PO ONCE PRN PRN Reason: Hypoglycemia Stop: 12/10/18 17:17 Glucose (Gluctose) 30 gm PO ONCE PRN PRN Reason: Hypoglycemia Stop: 12/10/18 17:17 Hydrocortisone (Cortaid) 1 appl TP BID PRN; Protocol PRN Reason: Itching Stop: 12/13/18 18:51 Last Admin: 06/13/18 21:53 Dose: 1 appl Dextrose (Dextrose 5%) 1,000 mls @ 100 mls/hr IVC .Q10H PRN PRN Reason: HYPOGLYCEMIA Stop: 12/10/18 17:17 Insulin Human Lispro (Humalog) 0 units SQ TIDAC [facility] PRN Reason: Protocol Stop: 12/11/18 07:31 Last Admin: 06/14/18 10:51 Dose: Not Given Levalbuterol HCl (Xopenex) 1.25 mg IH [id number] [facility] Stop: 12/11/18 10:31 Last Admin: 06/14/18 10:49 Dose: 1.25 mg Lisinopril (Zestril) 5 mg PO DAILY [facility] PRN Reason: Protocol Stop: 12/11/18 09:01 Last Admin: 06/14/18 10:50 Dose: 5 mg Magnesium Oxide (Mag-Ox) 400 mg PO DAILY [facility] PRN Reason: Protocol Stop: 12/11/18 09:01 Last Admin: 06/14/18 10:50 Dose: 400 mg Metoprolol Succinate (Toprol Xl) 25 mg PO ONCE [facility] Stop: 06/14/18 11:45 Metoprolol Succinate (Toprol Xl) 75 mg PO BID [facility] Stop: 12/14/18 21:01 Metoprolol Tartrate (Lopressor) 5 mg IVP Q6HR PRN PRN Reason: Heart Rate- High Stop: 12/14/18 11:14 Naloxone HCl (Narcan) 0.4 mg IVP Q2MIN PRN PRN Reason: SEE COMMENTS Stop: 12/10/18 17:08 Nicotine (Nicoderm) 21 mg TD DAILY [facility] PRN Reason: Protocol Stop: 12/11/18 09:01 Last Admin: 06/14/18 10:51 Dose: 21 mg Omeprazole (Prilosec) 20 mg PO DAILY [facility] PRN Reason: Protocol Stop: 12/11/18 09:01 Last Admin: 06/14/18 10:50 Dose: 20 mg Potassium Chloride (Potassium Chloride) 10 meq PO DAILY [facility] Stop: 12/11/18 09:01 Last Admin: 06/14/18 10:50 Dose: 10 meq Senna (Senna) 8.6 mg PO DAILY [facility] Stop: 12/11/18 09:01 Last Admin: 06/14/18 10:50 Dose: 8.6 mg Spironolactone (Aldactone) 100 mg PO DAILY [facility] Stop: 12/14/18 10:01 Laboratory Tests 06/14/18 06/14/18 09:26 09:26 Hgb 14.6 Potassium 3.7 Creatinine 0.67 L - Imaging and Cardiology Chest Xray: report reviewed Echo: report reviewed - EKG Interpretation EKG results cardiology: other (Telemetry reviewed with average HR previous 12 hours noted to be 116, a.fib. PVCs noted.) Consult Discharge Plan - Plan Referrals: Chhaya Avila, ELEVATOR REPAIRER [Primary Care Provider] -
[2018-06-14] MEDS ORDERED: Metoprolol XL (24 HR) Succ 25 MG TAB.ER.24H PO ONE (11:44)
[2018-06-14 13:01] LABS: Basophils # 0.1 K/mcL (0.0-0.2); Eosinophils # 0.1 K/mcL (0.0-0.6); Lymphocytes # 0.5 K/mcL (0.6-4.6); Monocytes # 0.6 K/mcL (0.0-1.3); Neutrophils # 3.5 K/mcL (1.6-8.9); Platelet Estimate Slight Decrease (Normal)
[2018-06-14 13:02] LABS: Hypochromasia Present (Not Present)
[2018-06-14 13:02] LABS: Hepatitis A Antibody Total POSITIVE (Negative); Hepatitis B Core Ab Total NEGATIVE (Negative)
[2018-06-14 13:04] LABS: Poikilocytosis 1+ (Not Present)
[2018-06-14] MEDS: Cholestyramine 4 GM POWD.PACK PO SCH (21:27)
[2018-06-15] MEDS: Levalbuterol Neb 1.25 MG/3 ML IH SCH ×4 (04:03→21:23)
[2018-06-15] MEDS: Furosemide 40 MG/4 ML VIAL IVP SCH ×2 (09:21→16:33)
[2018-06-15] MEDS: Insulin LISPRO 300 UNITS/3 ML VIAL SQ SCH ×3 (09:21→17:48)
[2018-06-15] MEDS: Nicotine 21 MG PATCH.TD24 TD SCH (09:22)
--- NOTE | 2018-06-15 09:26 | Gastroenterology Progress Note ---
Date of Encounter: 06/15/18 Time of Encounter: 08:45 - Assessment and plan (1) Ascites Current Visit: Yes Status: Acute Assessment and plan: Pt is status post paracentesis. Repeat US yesterday showed small amount of ascites. He is on lasix and aldactone, diuresing well. Will plan for EGD today to varices surveillance. Qualifiers: Ascites type: other type Qualified Code(s): R18.8 - Other ascites (2) Congestive heart failure Current Visit: Yes Status: Acute Qualifiers: Heart failure type: systolic Heart failure chronicity: acute on chronic Qualified Code(s): I50.23 - Acute on chronic systolic (congestive) heart failure (3) Hepatic cirrhosis Current Visit: Yes Status: Acute Assessment and plan: Patient presented with shortness of breath and increasing abdominal distention - Abdominal/pelvis CT demonstrated: ascites with cirrhosis and splenomegaly, portal HTN - Recently evaluated by PCP; RUQ ultrasound on 06/02 demonstrated moderate ascites with spinal megaly - Patient was recently evaluated by primary care provider in the right upper quadrant ultrasound was done on 06/02/18 which showed moderate volume ascites with splenomegaly - Unknown etiology at this time; possible cardiac cirrhosis - Qualifiers: Hepatic cirrhosis type: other cirrhosis Qualified Code(s): K74.69 - Other cirrhosis of liver (4) Itching Current Visit: Yes Status: Acute Assessment and plan: Likely due to increased bilirubin, will start cholestyramine at bedtime, repeat CMP today. - Time Spent With Patient Total time spent is greater than 50% in coordination of care (as documented) at patient's floor/unit and/or counseling patient: - Subjective Interval history: 62 yo male with cirrhosis. He had us yesterday which showed small amount of ascites. Aldactone was increased yesterday. He has baseline dyspnea. abdomen is slightly less distended today. - Constitutional Vitals: Temp Pulse Resp BP Pulse Ox 98.8 F 89 17 150/96 91 06/15/18 08:36 06/15/18 08:36 06/15/18 08:36 06/15/18 08:36 06/15/18 08:31 Exam: CONSTITUTIONAL:~alert, no acute distress.~HEAD:~normocephalic.~EYES:~no jaundice.~NECK:~no obvious swelling.~HEART:~irregular rate and rhythm, no murmurs.~LUNGS:~bilateral fair air entry.~ABDOMEN:~ distended, soft, non tender , edema and redness noted.~RECTAL EXAM:~Deferred.~EXTREMITIES:~no clubbing, cyanosis, 1+ BLE edema.~SKIN:~no stigmata of chronic liver disease.~NEUROLOGIC:~ no obvious focal defect.~~~~ Results - Labs CBC & Chem 7: 06/14/18 09:26 06/14/18 09:26 Labs: Last Result Calcium 9.4 mg/dL (8.6-10.3) 06/14/18 09:26 Ferritin 22 ng/mL (20-250) 06/12/18 05:32 Troponin I < 0.03 ng/mL (< 0.04) 06/10/18 14:01 Peritoneal Appearance CLEAR (Clear) 06/11/18 Unknown Peritoneal Volume 1000.0 mL 06/11/18 Unknown Peritoneal RBC < 0.002 M/mcL (0.000-0.002) 06/11/18 Unknown Periton Tot Nuc Cells 295 TNC/mcL (0-300) 06/11/18 Unknown Periton Band Neuts Test Not Performed 06/11/18 Unknown Periton Lymphocytes % 68.0 % 06/11/18 Unknown Periton Monocytes % 2.0 % 06/11/18 Unknown Periton Other Cells % Test Not Performed 06/11/18 Unknown Peritoneal Tot Protein < 3.0 g/dL (No Ref Range) 06/11/18 Unknown Peritoneal LDH 58 Units/L (No Ref Range) 06/11/18 Unknown Peritoneal Glucose 115 mg/dL (No Ref Range) 06/11/18 Unknown Peritoneal Amylase 23 Units/L (No Ref Range) 06/11/18 Unknown Entire Visit Hgb 14.6 g/dL (12.9-16.9) 06/14/18 09:26 Hct 51.4 % (37.5-50.1) H 06/14/18 09:26 PT 22.7 Seconds (9.4-12.1) H 06/14/18 10:49 Ferritin 22 ng/mL (20-250) 06/12/18 05:32 Total Bilirubin 1.8 mg/dL (0.3-1.0) H 06/14/18 09:26 AST 9 Units/L (13-39) L 06/14/18 09:26 ALT 5 Units/L (7-52) L 06/14/18 09:26 Ammonia 47 mcmol/L (16-53) 06/10/18 14:01 Gvmaa-3-Yqhqyljybdb 151 mg/dL (90-200) 06/12/18 05:32 Ceruloplasmin 24 mg/dL (17-54) 06/12/18 05:32 - ABG ABG results: ABG ABG pH 7.37 pH Units (7.32-7.45) 06/13/18 10:01 ABG pCO2 76 mmHg (35-45) H* 06/13/18 10:01 ABG pO2 64 mmHg (85-104) L 06/13/18 10:01 ABG O2 Saturation 90 % (95-98) L 06/13/18 10:01 PT/INR, D-dimer PT 22.7 Seconds (9.4-12.1) H 06/14/18 10:49 - Impressions Impressions Abdomen/Pelvis/Transvag US 06/14/18 10:00 IMPRESSION: Small amount of abdominal ascites seen on limited abdominal ultrasound. D/ / Aubrey Castaneda / Aubrey Castaneda Interpreting Provider: Aubrey Castaneda Consult Discharge Plan - Plan Referrals: Chhaya Avila, MESH WORKER [Primary Care Provider] -
--- NOTE | 2018-06-15 11:29 | Cardiology Progress Note ---
Date of Encounter: 06/15/18 Time of Encounter: 09:45 Assessment and Plan (1) Congestive heart failure Current Visit: Yes Status: Acute Per cardiology: -Bi-ventricular heart failure. -ADmitted with increased shortness of breath. Known NICM LVEF 40% 02/2018. C at [facility] without intervention. -BNP 405. -Also noted to have cirrhosis and ascites s/p paracentesis. -Repeat TTE was performed with LVEF 40-45% global hypokinesis, mild concentric LVH, mild diastolic dysfunction, moderate RV hypokinesis, likely mildly dilated RV, RV volume overload, mild PH. -Initial chest x-ray with no acute process, however repeat chest x-ray with interstitial edema. Yesterdays chest x-ray with worsening pulmonary edema. -ON IV lasix and aldactone. -Currently net negative 5194ml. -Patient's dry weight is about 257 pounds, currently 242pounds. -On BB, rené inhibitor. -Will repeat Chest x-ray, if significant improvement, can consider po lasix. -Strict i/os, fluid restriction, daily weights. -Suspect volume overload multi-factoral. Qualifiers: Heart failure type: systolic Heart failure chronicity: acute on chronic Qualified Code(s): I50.23 - Acute on chronic systolic (congestive) heart failure (2) Atrial fibrillation with rapid ventricular response Current Visit: Yes Status: Acute Per cardiology: -Known PAF -Average HR previous 12 hours noted to be 105, a.fib. He much Improved -ON BB. -Known cardiomyopathy, LVEF 40%. -On eliquis for anticoagulation. -Was given IV dig load. -Would not recommend CCB with cardiomyopathy. -Will continue to monitor. Discussion w patient/family: The assessment and plan as outlined above was discussed with the patient who expressed understanding and agreement. All questions were answered. Thank you for involving us in the care of your patient. Please call with any questions. Discussed and reviewed with Subjective Principal diagnosis: a.fib RVR, CHF Interval history: Pateint reports breathing is improved today. Currently wearing nasal cannula. Denies complaints. Objective Vital Signs, Last 4 Hours Temp Pulse Resp BP Pulse Ox 06/15/18 08:36 98.8 F 89 17 150/96 06/15/18 08:31 75 15 107/75 91 General: Conversant, No Apparent Distress HEENT: Atraumatic, Normocephaly, Mucus Membranes Moist Neck: No JVD, Normal carotid pulses Cardiac: Normal S1 and S2, No Murmur, Other (Irregularly irregular ) Lungs: Normal Breath Sounds, No Wheeze, Rales, Rhonchi Neuro: Alert and responsive, No focal deficits noted Abdomen: Soft, Non-Tender Skin: No rashes noted on visualized skin Musculoskeletal: No Chest Wall Tenderness Extremities: No Clubbing, No Cyanosis, No Edema, Normal Pulses Results 06/14/18 09:26 06/14/18 09:26 Impressions Abdomen/Pelvis/Transvag US 06/14/18 10:00 IMPRESSION: Small amount of abdominal ascites seen on limited abdominal ultrasound. D/ / Aubrey Castaneda / Aubrey Castaneda Interpreting Provider: Aubrey Castaneda Active Medications Apixaban (Eliquis) 5 mg PO BID [facility] Stop: 12/10/18 21:01 Last Admin: 06/14/18 21:27 Dose: 5 mg Atorvastatin Calcium (Lipitor) 40 mg PO HS [facility] Stop: 12/10/18 21:01 Last Admin: 06/14/18 21:27 Dose: 40 mg Cholestyramine Resin (Cholestyramine) 4 gm PO HS [facility] Stop: 12/14/18 21:01 Last Admin: 06/14/18 21:27 Dose: 4 gm Dextrose/Water (Dextrose 50% (Syg)) 25 ml IVP AD PRN PRN Reason: Hypoglycemia Stop: 12/10/18 17:17 Furosemide (Lasix) 40 mg IVP BIDDIURETIC [facility] Stop: 12/13/18 21:01 Last Admin: 06/15/18 09:21 Dose: 40 mg Glucagon (Glucagen) 1 mg IM ONCE PRN PRN Reason: Hypoglycemia Stop: 12/10/18 17:17 Glucose (Gluctose) 15 gm PO ONCE PRN PRN Reason: Hypoglycemia Stop: 12/10/18 17:17 Glucose (Gluctose) 30 gm PO ONCE PRN PRN Reason: Hypoglycemia Stop: 12/10/18 17:17 Hydrocortisone (Cortaid) 1 appl TP BID PRN; Protocol PRN Reason: Itching Stop: 12/13/18 18:51 Last Admin: 06/14/18 21:27 Dose: 1 appl Dextrose (Dextrose 5%) 1,000 mls @ 100 mls/hr IVC .Q10H PRN PRN Reason: HYPOGLYCEMIA Stop: 12/10/18 17:17 Insulin Human Lispro (Humalog) 0 units SQ TIDAC [facility] PRN Reason: Protocol Stop: 12/11/18 07:31 Last Admin: 06/15/18 09:21 Dose: Not Given Levalbuterol HCl (Xopenex) 1.25 mg IH [id number] [facility] Stop: 12/11/18 10:31 Last Admin: 06/15/18 10:44 Dose: 1.25 mg Lisinopril (Zestril) 5 mg PO DAILY [facility] PRN Reason: Protocol Stop: 12/11/18 09:01 Last Admin: 06/14/18 10:50 Dose: 5 mg Magnesium Oxide (Mag-Ox) 400 mg PO DAILY [facility] PRN Reason: Protocol Stop: 12/11/18 09:01 Last Admin: 06/14/18 10:50 Dose: 400 mg Metoprolol Succinate (Toprol Xl) 75 mg PO BID [facility] Stop: 12/14/18 21:01 Last Admin: 06/14/18 21:26 Dose: 75 mg Metoprolol Tartrate (Lopressor) 5 mg IVP Q6HR PRN PRN Reason: Heart Rate- High Stop: 12/14/18 11:14 Naloxone HCl (Narcan) 0.4 mg IVP Q2MIN PRN PRN Reason: SEE COMMENTS Stop: 12/10/18 17:08 Nicotine (Nicoderm) 21 mg TD DAILY [facility] PRN Reason: Protocol Stop: 12/11/18 09:01 Last Admin: 06/15/18 09:22 Dose: 21 mg Omeprazole (Prilosec) 20 mg PO DAILY [facility] PRN Reason: Protocol Stop: 12/11/18 09:01 Last Admin: 06/14/18 10:50 Dose: 20 mg Potassium Chloride (Potassium Chloride) 10 meq PO DAILY [facility] Stop: 12/11/18 09:01 Last Admin: 06/14/18 10:50 Dose: 10 meq Senna (Senna) 8.6 mg PO DAILY [facility] Stop: 12/11/18 09:01 Last Admin: 06/14/18 10:50 Dose: 8.6 mg Spironolactone (Aldactone) 100 mg PO DAILY [facility] Stop: 12/14/18 10:01 Last Admin: 06/14/18 12:08 Dose: 100 mg Laboratory Tests 06/14/18 09:26 Hgb 14.6 - Imaging and Cardiology Chest Xray: pending, report reviewed Echo: report reviewed - EKG Interpretation EKG results cardiology: other (Telemetry reviewed with average HR previous 12 hours noted to be 105, a.fib. PVCs noted.) Consult Discharge Plan - Plan Referrals: Chhaya Avila, EQUIPMENT LEAD [Primary Care Provider] -
[2018-06-15] MEDS ORDERED: *HR* Propofol 200 MG/20 ML VIAL IVP ONE (12:46)
[2018-06-15] MEDS ORDERED: Lidocaine -MPF 2% 2 ML VIAL ONE ×2 (12:52→13:20)
[2018-06-15] MEDS ORDERED: *HR* Etomidate 40 MG/20 ML VIAL IVP ONE (12:52)
[2018-06-15 13:23] LABS: Hepatitis A Antibody IgM Nonreactive (Nonreactive); Hepatitis B Core IgM Nonreactive (Nonreactive); Hepatitis B Surface Antigen Nonreactive (Nonreactive); Hepatitis C Virus Antibody Nonreactive (Nonreactive)
--- NOTE | 2018-06-15 13:36 | Anesthesia Evaluation PreOp ---
Date of Encounter: 06/15/18 Time of Encounter: 13:45 - Past History Planned Operation: EGD Cardiac History: CHF, HTN, Arrhythmia (atrial fibrillation, admitted with RVR, stable on cardizem drip), Pacemaker/ICD, Other (nonischemic cardiomyopathy EF 40 -45%) Pulmonary History: Smoker (chronic), COPD (O2 dependent at 2L) LOGISTIC MANAGER History: CVA Other Medical History: Hepatic (cirrhosis/ascites), Renal (Stage III kidney disease), Diabetes Type II Alcohol Use: none Drug use: none Medications and Allergies Apixaban [Eliquis] 5 mg PO BID 06/10/18 [History] Aspirin [Lo-Dose Aspirin EC] 81 mg PO DAILY 06/10/18 [History] Atorvastatin [Lipitor] 40 mg PO HS 06/10/18 [History] Furosemide [Lasix] 20 mg PO DAILY 06/10/18 [History] Lisinopril [Zestril] 5 mg PO DAILY 06/10/18 [History] Magnesium Oxide [Mag-Ox] 400 mg PO DAILY 06/10/18 [History] Metoprolol Succinate [Toprol Xl] 100 mg PO DAILY 06/10/18 [History] Omeprazole [PriLOSEC] 20 mg PO DAILY 06/10/18 [History] Potassium Chloride [Klor-Con 10] 10 meq PO DAILY 06/10/18 [History] Sennosides [Senna] 8.6 mg PO DAILY 06/10/18 [History] metFORMIN [Glucophage] 500 mg PO BIDWM 06/10/18 [History] 3 Allergy/AdvReac Type Severity Reaction Status Date / Time No Known Allergies Allergy Verified 06/10/18 15:40 - Meds/Allergy Pre-op Review Medications Reviewed: Yes Allergies Reviewed: Yes Beta Blockers on Current Med List: Yes (192 ) Anesthesia Results - Labs 06/14/18 09:26 06/14/18 09:26 - Imaging EKG: other (afib, rate approx. 100) Anesthesia Exam Selected Entries 06/15/18 11:37 Temperature 97.3 F L Pulse Rate 102 Respiratory Rate 17 Blood Pressure 131/82 O2 Sat by Pulse Oximetry 92 Current O2 sat high 80's to low 90s on 6L Weight: 110 kg NPO (# of Hours): over 8 hours - HEENT Pupil (Motor): Pupils equal Mallampati: II Teeth: Normal, Poor dentition (full benitez) - Cardiac Rhythm: Irregular - Pulmonary Breath Sounds: bilateral Rales Respiratory Effort: Symmetrical (slightly short of breath, states this is normal for him) Anesthesia Assess/Plan ASA Score: 4 Modified [place] Scale for Level of Consciousness: Cooperative, oriented, and tranquil Anesthetic Plan: MAC Monitoring Plan: Standard Monitors Recovery Plan: Other (Discussed MAC anesthesia, agreed to proceed.)
--- NOTE | 2018-06-15 14:26 | Anesthesia Evaluation Post Op ---
Date of Encounter: 06/15/18 Time of Encounter: 14:18 - Vital Signs Vital Signs: BP 123/68, RR 22, spO2 88% on 6L NC at baseline for the patient, afib HR 104 - Lungs Lungs: Rhonchi - Airway Airway: Non-obstructed - Cardiovascular Baseline Rhythm - Mental Status Mental Status: Alert & Oriented, Answers Appropriately - Pain Pain Scale: 0 Pain Scale used: Numeric (1 - 10) - Nausea Vomiting Nausea Vomiting: Not Present - Discharge PostOp Status: Transfer Patient to floor
[2018-06-15] MEDS: Metoprolol XL (24 HR) Succ 50 MG TAB.ER.24H PO SCH ×2 (15:41→21:28)
[2018-06-15] MEDS: Apixaban 5 MG TABLET PO SCH ×2 (15:41→21:29)
[2018-06-15] MEDS: Sennosides 8.6 MG TABLET PO SCH (16:30)
[2018-06-15] MEDS: Magnesium Oxide 400 MG TABLET PO SCH (16:32)
[2018-06-15] MEDS: *HR* Metoprolol 5 MG/5 ML VIAL IVP PRN (17:15)
--- NOTE | 2018-06-15 19:22 | Internal Med Progress Note ---
Hospitalist Progress Note - Encounter Date of Encounter: 06/15/18 Time of Encounter: 19:19 - Subjective Interval History: Ration evaluated at bedside, reports shortness of breath, chest pain. Denies nausea, vomiting. Or abdominal pain. - Exam Vitals: Temp Pulse Resp BP Pulse Ox 99.1 F 125 17 122/98 90 06/15/18 17:10 06/15/18 17:10 06/15/18 17:10 06/15/18 17:10 06/15/18 17:10 Exam: General: Alert and oriented 3. In no acute distress. Skin: Multiple excoriations at the flores b/l Cardiovascular: RRR, Normal S1 & S2, no rubs, murmurs or gallops. JVD about 6cm. Lungs: Expiratory wheezes bilaterally, no crackles or rales. Abdomen: Obese, distended, Soft, non-tender, no rigidity. Extremities: Trace edema in the lower extremity bilaterally. Neurological: Normal cognition and motor skills. Rest of the physical exam is non contributory - Assessment and Plan (1) Congestive heart failure Current Visit: Yes Status: Acute Assessment and Plan: No crackles or rales on auscultation. Plan: Plan: To continue gentle IV diruresis with furosemide 40mg/IV twice a day strict intake and output water restriction to 1.5 litters a day. daily weight 2 gram sodium diet will continue to follow cardiology recommendations Continue low-dose ACEs Continue low dose beta-callum (2) Atrial fibrillation Current Visit: Yes Status: Acute Assessment and Plan: Not rate controlled. Rate fluke plates in the 80-120s possible due to Nebs? Plan: Continue metoprolol 75 mg by mouth twice a day On metoprolol 5 mg IV every 6 hours when necessary for heart rate more than 100 as per cardiology recommendations. Continue oral anticoagulation with Apixaban 5mg PO BID. (3) Ascites Current Visit: Yes Status: Acute Assessment and Plan: Status post paracentesis. Plan Continue spironolactone 100 mg daily and furosemide 40 mg IV twice a day 2 g sodium diet Strict intake and output We will continue to follow GI recommendations (4) Hepatic cirrhosis Current Visit: Yes Status: Acute Assessment and Plan: Plan of care as per GI recommendations. (5) Diabetes Current Visit: Yes Status: Acute Assessment and Plan: Blood sugar well controlled. Continue lispro sliding scale. We will add Levemir 5 units at bedtime (6) COPD (chronic obstructive pulmonary disease) Current Visit: Yes Status: Acute Assessment and Plan: Expiratory wheezings on auscultation bilaterally. Continue nebs when necessary (7) Hx of esophageal varices Current Visit: Yes Status: Acute Assessment and Plan: S/P EGD which showed diuresis found in the lower third of esophagus. Gastritis. Plan GI recommended PPI 8 week for gastritis. will follow recommendations regarding esophageal varices management. - Time Spent with Patient Total time spent is greater than 50% in coordination of care (as documented) at patient's floor/unit and/or counseling patient: Greater than 35 minutes Plan of Care Discussed with: patient (and the nurse.) Internal Medicine: Result - Labs CBC & Chem 7: 06/14/18 09:26 06/14/18 09:26 - ABG Interpretation ABG results: ABG ABG pH 7.37 pH Units (7.32-7.45) 06/13/18 10:01 ABG pCO2 76 mmHg (35-45) H* 06/13/18 10:01 ABG pO2 64 mmHg (85-104) L 06/13/18 10:01 ABG O2 Saturation 90 % (95-98) L 06/13/18 10:01 PT/INR, D-dimer PT 22.7 Seconds (9.4-12.1) H 06/14/18 10:49 - Impressions Impressions Chest X-Ray 06/15/18 08:04 IMPRESSION: 1. Diminishing findings of congestive heart failure seen on previous study. 2. Small left pleural effusion is evident. 3. Calcific atherosclerosis aorta. 4. Cardiomegaly. D/ / Devante Graham / Devante Graham Interpreting Provider: Devante Graham Consult Discharge Plan - Plan Referrals: Chhaya Avila, DONOR RELATIONS COORDINATOR [Primary Care Provider] - (1) Congestive heart failure Qualifiers: Heart failure type: systolic Heart failure chronicity: acute on chronic Qualified Code(s): I50.23 - Acute on chronic systolic (congestive) heart failure (2) Atrial fibrillation Qualifiers: Atrial fibrillation type: chronic Qualified Code(s): I48.2 - Chronic atrial fibrillation (3) Ascites Qualifiers: Ascites type: other type Qualified Code(s): R18.8 - Other ascites (4) Hepatic cirrhosis Qualifiers: Hepatic cirrhosis type: other cirrhosis Qualified Code(s): K74.69 - Other cirrhosis of liver (5) Diabetes Qualifiers: Diabetes mellitus complication status: with unspecified complications (6) COPD (chronic obstructive pulmonary disease) Qualifiers: Emphysema type: unspecified
[2018-06-15] MEDS ORDERED: Insulin DETEMIR 100 UNIT/ML X5UNITS SQ SCH (21:00)
[2018-06-15] MEDS: Cholestyramine 4 GM POWD.PACK PO SCH (21:29)
[2018-06-16] MEDS: Levalbuterol Neb 1.25 MG/3 ML IH SCH ×4 (03:26→22:37)
[2018-06-16 06:46] LABS: Basophils % 0.7 %
[2018-06-16 06:48] LABS: Eosinophils # 0.4 K/mcL (0.0-0.6); Eosinophils % 7.2 %; Hematocrit 49.1 % (37.5-50.1); Hemoglobin 14.6 g/dL (12.9-16.9); Immature Granulocytes % 0.2 % (0-4); Immature Platelets 12.7 % (1.1-6.1); Lymphocytes # 0.9 K/mcL (0.6-4.6); Lymphocytes % 15.4 %; Mean Corpuscular HGB Conc 29.7 g/dL (31.6-35.5); Mean Corpuscular Hemoglobin 24.1 pg (28.0-33.3); Mean Corpuscular Volume 81.2 fL (83.0-100.0); Mean Platelet Volume 11.4 fL (9.4-12.4); Monocytes % 9.9 %; Neutrophils # 3.7 K/mcL (1.6-8.9); Platelet Count 110 K/mcL (140-400); Red Blood Count 6.05 M/mcL (4.19-5.50); Red Cell Distribution Width 18.9 % (11.5-14.5); Segmented Neutrophils % 66.6 %
[2018-06-16 06:54] LABS: Monocytes # 0.5 K/mcL (0.0-1.3)
[2018-06-16 07:07] LABS: BUN/Creatinine Ratio 21 (6-26); Blood Urea Nitrogen 15 mg/dL (8-23); Calcium 9.8 mg/dL (8.6-10.3); Carbon Dioxide 38 mEq/L (23-29); Chloride 97 mEq/L (98-107); Glucose 96 mg/dL (70-105); Magnesium 1.7 mg/dL (1.6-2.6); Osmolality,Calculated 295 (280-300); Potassium 3.9 mEq/L (3.5-5.1); Sodium 142 mEq/L (136-145); eGFR For Non-African Americans > 60 (> 60)
[2018-06-16] MEDS: Insulin LISPRO 300 UNITS/3 ML VIAL SQ SCH ×3 (09:16→19:12)
[2018-06-16] MEDS: Magnesium Oxide 400 MG TABLET PO SCH (09:22)
[2018-06-16] MEDS: Apixaban 5 MG TABLET PO SCH ×2 (09:22→20:23)
[2018-06-16] MEDS: Sennosides 8.6 MG TABLET PO SCH (09:22)
[2018-06-16] MEDS: Furosemide 40 MG/4 ML VIAL IVP SCH ×2 (09:22→16:32)
[2018-06-16] MEDS: Nicotine 21 MG PATCH.TD24 TD SCH (09:23)
--- NOTE | 2018-06-16 11:02 | Cardiology Progress Note ---
Date of Encounter: 06/16/18 Time of Encounter: 09:00 Assessment and Plan (1) Congestive heart failure Current Visit: Yes Status: Acute Per cardiology: -Bi-ventricular heart failure. -ADmitted with increased shortness of breath. Known NICM LVEF 40% 02/2018. [facility] at [facility] without intervention. -BNP 405. -Also noted to have cirrhosis and ascites s/p paracentesis. -Repeat TTE was performed with LVEF 40-45% global hypokinesis, mild concentric LVH, mild diastolic dysfunction, moderate RV hypokinesis, likely mildly dilated RV, RV volume overload, mild PH. -Initial chest x-ray with no acute process, however repeat chest x-ray with interstitial edema. Yesterdays chest x-ray with worsening pulmonary edema. -Chest x-ray yesterday with diminishing findings of CHF from previous. -ON IV lasix and aldactone. -Currently net negative 5688ml. -On BB, rené inhibitor. -Appears euvolemic on exam, however still requiring high flow O2. -Strict i/os, fluid restriction, daily weights. -Suspect volume overload multi-factoral. Qualifiers: Heart failure type: systolic Heart failure chronicity: acute on chronic Qualified Code(s): I50.23 - Acute on chronic systolic (congestive) heart failure (2) Atrial fibrillation with rapid ventricular response Current Visit: Yes Status: Acute Per cardiology: -Known PAF -Average HR previous 12 hours noted to be 109, a.fib. HR much Improved -ON BB. -Known cardiomyopathy, LVEF 40%. -On eliquis for anticoagulation. -Was given IV dig load. -Will increase BB. -Would not recommend CCB with cardiomyopathy. -Will continue to monitor. Discussion w patient/family: The assessment and plan as outlined above was discussed with the patient who expressed understanding and agreement. All questions were answered. Thank you for involving us in the care of your patient. Please call with any questions. Discussed and reviewed with Subjective Principal diagnosis: a.fib RVR, CHF Interval history: Pateint reports breathing is improved today. Currently wearing high flow nasal cannula. Denies complaints. Patient states he is anxious to go home. Objective Vital Signs, Last 4 Hours Temp Pulse Resp BP Pulse Ox 06/16/18 10:50 16 91 06/16/18 08:27 98.0 F 108 21 113/76 94 General: Conversant, No Apparent Distress HEENT: Atraumatic, Normocephaly, Mucus Membranes Moist Neck: No JVD, Normal carotid pulses Cardiac: Normal S1 and S2, No Murmur, Other (Irregularly irregular ) Lungs: Other (Expiratory wheezes noted. ) Neuro: Alert and responsive, No focal deficits noted Abdomen: Soft, Non-Tender Skin: No rashes noted on visualized skin Musculoskeletal: No Chest Wall Tenderness Extremities: No Clubbing, No Cyanosis, No Edema, Normal Pulses Results 06/16/18 06:14 06/16/18 06:14 Lab Results Impressions Chest X-Ray 06/15/18 08:04 IMPRESSION: 1. Diminishing findings of congestive heart failure seen on previous study. 2. Small left pleural effusion is evident. 3. Calcific atherosclerosis aorta. 4. Cardiomegaly. D/ / Devante Graham / Devante Graham Interpreting Provider: Devante Graham Active Medications Apixaban (Eliquis) 5 mg PO BID [facility] Stop: 12/10/18 21:01 Last Admin: 06/16/18 09:22 Dose: 5 mg Atorvastatin Calcium (Lipitor) 40 mg PO HS [facility] Stop: 12/10/18 21:01 Last Admin: 06/15/18 21:28 Dose: 40 mg Cholestyramine Resin (Cholestyramine) 4 gm PO HS [place] Stop: 12/14/18 21:01 Last Admin: 06/15/18 21:29 Dose: 4 gm Dextrose/Water (Dextrose 50% (Syg)) 25 ml IVP AD PRN PRN Reason: Hypoglycemia Stop: 12/10/18 17:17 Furosemide (Lasix) 40 mg IVP BIDDIURETIC [place] Stop: 12/13/18 21:01 Last Admin: 06/16/18 09:22 Dose: 40 mg Glucagon (Glucagen) 1 mg IM ONCE PRN PRN Reason: Hypoglycemia Stop: 12/10/18 17:17 Glucose (Gluctose) 15 gm PO ONCE PRN PRN Reason: Hypoglycemia Stop: 12/10/18 17:17 Glucose (Gluctose) 30 gm PO ONCE PRN PRN Reason: Hypoglycemia Stop: 12/10/18 17:17 Hydrocortisone (Cortaid) 1 appl TP BID PRN; Protocol PRN Reason: Itching Stop: 12/13/18 18:51 Last Admin: 06/15/18 16:42 Dose: 1 appl Dextrose (Dextrose 5%) 1,000 mls @ 100 mls/hr IVC .Q10H PRN PRN Reason: HYPOGLYCEMIA Stop: 12/10/18 17:17 Insulin Detemir (Levemir) 5 unit SQ HS [facility] Stop: 12/15/18 21:01 Last Admin: 06/16/18 00:18 Dose: Not Given Insulin Human Lispro (Humalog) 0 units SQ TIDAC [place] PRN Reason: Protocol Stop: 12/11/18 07:31 Last Admin: 06/16/18 09:16 Dose: Not Given Levalbuterol HCl (Xopenex) 1.25 mg IH [id number] [facility] Stop: 12/11/18 10:31 Last Admin: 06/16/18 10:50 Dose: 1.25 mg Lisinopril (Zestril) 5 mg PO DAILY [place] PRN Reason: Protocol Stop: 12/11/18 09:01 Last Admin: 06/16/18 09:22 Dose: 5 mg Magnesium Oxide (Mag-Ox) 400 mg PO DAILY [place] PRN Reason: Protocol Stop: 12/11/18 09:01 Last Admin: 06/16/18 09:22 Dose: 400 mg Metoprolol Succinate (Toprol Xl) 100 mg PO BID [facility] Stop: 12/16/18 09:01 Metoprolol Tartrate (Lopressor) 5 mg IVP Q6HR PRN PRN Reason: Heart Rate- High Stop: 12/14/18 11:14 Last Admin: 06/15/18 17:15 Dose: 5 mg Naloxone HCl (Narcan) 0.4 mg IVP Q2MIN PRN PRN Reason: SEE COMMENTS Stop: 12/10/18 17:08 Nicotine (Nicoderm) 21 mg TD DAILY [place] PRN Reason: Protocol Stop: 12/11/18 09:01 Last Admin: 06/16/18 09:23 Dose: 21 mg Omeprazole (Prilosec) 20 mg PO DAILY [place] PRN Reason: Protocol Stop: 12/11/18 09:01 Last Admin: 06/16/18 09:22 Dose: 20 mg Potassium Chloride (Potassium Chloride) 10 meq PO DAILY [facility] Stop: 12/11/18 09:01 Last Admin: 06/16/18 09:22 Dose: 10 meq Senna (Senna) 8.6 mg PO DAILY [facility] Stop: 12/11/18 09:01 Last Admin: 06/16/18 09:22 Dose: 8.6 mg Spironolactone (Aldactone) 100 mg PO DAILY [facility] Stop: 12/14/18 10:01 Last Admin: 06/16/18 09:22 Dose: 100 mg Laboratory Tests 06/16/18 06/16/18 06:14 06:14 Hgb 14.6 Plt Count 110 L Potassium 3.9 Creatinine 0.71 Magnesium 1.7 - Imaging and Cardiology Chest Xray: report reviewed Echo: report reviewed - EKG Interpretation EKG results cardiology: other (Telemetry reveiwed with average HR previous 12 hours noted to be 109, a.fib RVR, PVCs noted.) Consult Discharge Plan - Plan Referrals: Chhaya Avila, [employer] [Primary Care Provider] -
[2018-06-16] MEDS: predniSONE 20 MG TABLET PO SCH (16:32)
[2018-06-16] MEDS: Metoprolol XL (24 HR) Succ 50 MG TAB.ER.24H PO SCH ×2 (16:32→20:23)
--- NOTE | 2018-06-16 16:58 | Internal Med Progress Note ---
Hospitalist Progress Note - Encounter Date of Encounter: 06/16/18 Time of Encounter: 16:54 - Subjective Interval History: Seen at bedside, patient reports doing well, denies shortness of breath, on oxygen by nasal cannula. Denies chest pain, reports abdominal discomfort. And he has not had a bowel movement for the past 3 days. - Exam Vitals: Temp Pulse Resp BP Pulse Ox 98.0 F 103 16 112/58 90 06/16/18 12:13 06/16/18 12:13 06/16/18 16:15 06/16/18 12:13 06/16/18 16:15 Exam: General: Alert and oriented 3. In no acute distress. Skin: Diffused erythematous rash most significant in the abdominal and lower extremities area. Cardiovascular: Irregularly irregular, Normal S1 & S2, no rubs, murmurs or gallops. JVD about 6cm. Lungs: Still has Expiratory wheezes bilaterally, no crackles or rales. Abdomen: Obese, distended, Soft, non-tender, no rigidity. Extremities: Trace edema in the lower extremity bilaterally. Neurological: CN II-XII intact. Rest of the physical exam is non contributory - Assessment and Plan (1) Congestive heart failure Current Visit: Yes Status: Acute Assessment and Plan: Expiratory wheezings and auscultation. Plan: On furosemide 40mg/IV twice a day strict intake and output Continue with water restriction to 1.5 litters a day. daily weight Cardiology recommendations appreciated. On a low-dose ACEs and a low dose beta-callum will consider a icu rn consult as patient has been diuresed 5 litters plus had a paracentesis and still is requiring High flow O2. (2) COPD (chronic obstructive pulmonary disease) Current Visit: Yes Status: Acute Assessment and Plan: Expiratory wheezings on auscultation bilaterally. Plan Patient on 6 litters of O2 by nasal cannula, titrate O2 down to 2 litters Titrate for O2Sat >92% Continue nebs when necessary F/U ABG (3) Atrial fibrillation Current Visit: Yes Status: Acute Assessment and Plan: Metoprolol increased by cardiology team to 100 mg twice a day. Continue oral anticoagulation. (4) Ascites Current Visit: Yes Status: Acute Assessment and Plan: Status post paracentesis. Plan Continue spironolactone 100 mg daily and furosemide 40 mg IV twice a day 2 g sodium diet Strict intake and output We will continue to follow GI recommendations (5) Hepatic cirrhosis Current Visit: Yes Status: Acute Assessment and Plan: Plan of care as per GI recommendations. (6) Diabetes Current Visit: Yes Status: Acute Assessment and Plan: Blood sugar well controlled. Will decrease Levemir to 2.5 units HS to avoid hypoglycemia (7) Hx of esophageal varices Current Visit: Yes Status: Acute Assessment and Plan: S/P EGD which showed varices found in the lower third of esophagus. Gastritis. Plan No signs of bleeding. outpatient f/u with GI (8) Gastritis Current Visit: Yes Status: Acute Assessment and Plan: S/P EGD Plan Patient needs to be on PPI for 8 weeks as per GI recommendations (9) Skin abnormality Current Visit: Yes Status: Acute Assessment and Plan: Possible allergic skin reaction. Plan Started on Prednisone 20mg PO daily as skin reaction seems not be responding to topical steroids. - Summary of Assessment and Plan Summary of Assessment and Plan: Patient needs to remain in the hospital. Continue to require high O2 level. On 8 litters by nasal cannula. alternating with high flow - Time Spent with Patient Total time spent is greater than 50% in coordination of care (as documented) at patient's floor/unit and/or counseling patient: Greater than 35 minutes Plan of Care Discussed with: patient Internal Medicine: Result - Labs CBC & Chem 7: 06/16/18 06:14 06/16/18 06:14 Labs: Short CBC 06/16/18 Range/Units 06:14 WBC 5.5 (4.3-11.1) K/mcL Hgb 14.6 (12.9-16.9) g/dL Hct 49.1 (37.5-50.1) % Plt Count 110 L (140-400) K/mcL Neutrophils # 3.7 (1.6-8.9) K/mcL BMP 06/16/18 06:14 Sodium 142 Potassium 3.9 Chloride 97 L Carbon Dioxide 38 H BUN 15 Creatinine 0.71 Glucose 96 Calcium 9.8 - ABG Interpretation ABG results: ABG ABG pH 7.37 pH Units (7.32-7.45) 06/13/18 10:01 ABG pCO2 76 mmHg (35-45) H* 06/13/18 10:01 ABG pO2 64 mmHg (85-104) L 06/13/18 10:01 ABG O2 Saturation 90 % (95-98) L 06/13/18 10:01 PT/INR, D-dimer PT 22.7 Seconds (9.4-12.1) H 06/14/18 10:49 Consult Discharge Plan - Plan Referrals: Chhaya Avila, [employer] [Primary Care Provider] - (1) Congestive heart failure Qualifiers: Heart failure type: systolic Heart failure chronicity: acute on chronic Qualified Code(s): I50.23 - Acute on chronic systolic (congestive) heart failure (2) COPD (chronic obstructive pulmonary disease) Qualifiers: Emphysema type: unspecified (3) Atrial fibrillation Qualifiers: Atrial fibrillation type: chronic Qualified Code(s): I48.2 - Chronic atrial fibrillation (4) Ascites Qualifiers: Ascites type: other type Qualified Code(s): R18.8 - Other ascites (5) Hepatic cirrhosis Qualifiers: Hepatic cirrhosis type: other cirrhosis Qualified Code(s): K74.69 - Other cirrhosis of liver (6) Diabetes Qualifiers: Diabetes mellitus complication status: with unspecified complications (8) Gastritis Qualifiers: Gastritis type: unspecified gastritis Chronicity: unspecified Gastritis bleeding: without bleeding Qualified Code(s): K29.70 - Gastritis, unspecified, without bleeding
[2018-06-16 18:47] LABS: ABG Base Excess 12 mEq/L (-2 to 3); ABG HCO3 39 mEq/L (21-27); ABG Oxygen Saturation 90 % (95-98); ABG PCO2 57 mmHg (35-45); ABG PH 7.44 pH Units (7.32-7.45); ABG PO2 58 mmHg (85-104); ABG TCO2 41 mEq/L (20-26)
[2018-06-16] MEDS: Cholestyramine 4 GM POWD.PACK PO SCH (20:23)
[2018-06-16] MEDS: *HR* Metoprolol 5 MG/5 ML VIAL IVP PRN (22:13)
[2018-06-16] MEDS: Insulin DETEMIR 100 UNIT/ML X5UNITS SQ SCH ×2 (23:19→23:20)
[2018-06-17] MEDS: Levalbuterol Neb 1.25 MG/3 ML IH SCH ×4 (04:04→21:19)
[2018-06-17 05:16] LABS: Basophils % 0.4 %; Eosinophils # 0.1 K/mcL (0.0-0.6); Eosinophils % 1.5 %; Hematocrit 49.6 % (37.5-50.1); Hemoglobin 14.7 g/dL (12.9-16.9); Immature Granulocytes % 0.2 % (0-4); Lymphocytes # 0.7 K/mcL (0.6-4.6); Lymphocytes % 12.2 %; Mean Corpuscular HGB Conc 29.6 g/dL (31.6-35.5); Mean Corpuscular Hemoglobin 23.8 pg (28.0-33.3); Mean Corpuscular Volume 80.3 fL (83.0-100.0); Monocytes # 0.3 K/mcL (0.0-1.3); Monocytes % 5.2 %; Neutrophils # 4.3 K/mcL (1.6-8.9); Platelet Count 109 K/mcL (140-400); Red Blood Count 6.18 M/mcL (4.19-5.50); Red Cell Distribution Width 18.6 % (11.5-14.5); Segmented Neutrophils % 80.5 %
[2018-06-17 05:38] LABS: BUN/Creatinine Ratio 25 (6-26); Blood Urea Nitrogen 17 mg/dL (8-23); Calcium 9.9 mg/dL (8.6-10.3); Carbon Dioxide 33 mEq/L (23-29); Chloride 100 mEq/L (98-107); Glucose 156 mg/dL (70-105); Magnesium 1.8 mg/dL (1.6-2.6); Osmolality,Calculated 295 (280-300); Potassium 4.2 mEq/L (3.5-5.1); Sodium 140 mEq/L (136-145); eGFR For Non-African Americans > 60 (> 60)
[2018-06-17 05:40] LABS: Anisocytosis 1+ (Not Present); Hypochromasia Present (Not Present); Platelet Estimate Slight Decrease (Normal)
[2018-06-17] MEDS ORDERED: Furosemide 40 MG/4 ML VIAL IVP SCH (08:00)
[2018-06-17] MEDS: Insulin LISPRO 300 UNITS/3 ML VIAL SQ SCH ×3 (08:01→16:50)
[2018-06-17] MEDS: Sennosides 8.6 MG TABLET PO SCH (08:06)
[2018-06-17] MEDS: predniSONE 20 MG TABLET PO SCH (08:06)
[2018-06-17] MEDS: Apixaban 5 MG TABLET PO SCH ×2 (08:06→21:46)
[2018-06-17] MEDS: Metoprolol XL (24 HR) Succ 50 MG TAB.ER.24H PO SCH ×2 (08:07→21:46)
[2018-06-17] MEDS: Magnesium Oxide 400 MG TABLET PO SCH (08:07)
[2018-06-17] MEDS: Nicotine 21 MG PATCH.TD24 TD SCH (08:07)
--- NOTE | 2018-06-17 10:07 | Internal Med Progress Note ---
Hospitalist Progress Note - Encounter Date of Encounter: 06/17/18 Time of Encounter: 10:25 - Subjective Interval History: Evaluated at bedside, reports that he is feeling "okay", denies shortness of breath, chest pain, nausea or vomiting. No fever, chills. Reports that the itching has decreased. - Exam Vitals: Temp Pulse Resp BP Pulse Ox 97.5 F L 100 18 107/59 100 06/17/18 07:28 06/17/18 07:28 06/17/18 07:28 06/17/18 07:28 06/17/18 07:28 Exam: General: Alert and oriented 3. In no acute distress. Skin: Diffused erythematous rash most significant in the abdominal and lower extremities area. Decreased in size when compared with yesterday. Cardiovascular: Irregularly irregular, Normal S1 & S2, no rubs, murmurs or gallops. JVD about 6cm. Lungs: Scattered crackles bilaterally, mild expiratory wheezings and rales. Abdomen: Obese, distended, Soft, non-tender, no rigidity. Extremities: Trace edema in the lower extremity bilaterally. Neurological: CN II-XII intact. Rest of the physical exam is non contributory - Assessment and Plan (1) Pulmonary edema with congestive heart failure Current Visit: Yes Status: Acute Assessment and Plan: Scattered crackles in both lung danielle. Port chest X-ray: Right pleural effusion with worsening pulmonary edema. Plan Increase Lasix to 60 mg IV twice a day We will decrease spironolactone to 50 mg daily, as blood pressure in the soft side. If diuresis is not appropriate with IV Lasix, we will consider Lasix drip. Hold lisinopril Strict intake and output Daily weights Water restriction to 1.5 L a day 2 g sodium diet We will continue to follow cardiology recommendation. (2) Acute and chronic respiratory failure Current Visit: Yes Status: Acute Assessment and Plan: Acute on chronic respiratory failure likely secondary to Pulmonary edema. Plan: Continue Bipap diuretics nebs (3) Congestive heart failure Current Visit: Yes Status: Acute Assessment and Plan: Scattered crackles in both lung danielle. Plan of care as per #1 problem. (4) COPD (chronic obstructive pulmonary disease) Current Visit: Yes Status: Acute Assessment and Plan: mild/.minimal expiratory wheezing heard on auscultation. Plan continue Levalbuterol Nebs Incentive spirometry when not on the BiPAP. (5) Atrial fibrillation Current Visit: Yes Status: Acute Assessment and Plan: Rate better controlled. After increasing metoprolol to 100 mg. On eliquis. Continue current management. Will follow cardiology recommendations. (6) Ascites Current Visit: Yes Status: Acute Assessment and Plan: Status post paracentesis. Ascites multifactorial but most likely cardiac in origin Plan spironolactone decreased to 50 mg daily and furosemide increased to 60 mg IV twice a day 2 g sodium diet Strict intake and output We will continue to follow GI recommendations (7) Hepatic cirrhosis Current Visit: Yes Status: Acute Assessment and Plan: Plan of care as per GI recommendations. (8) Diabetes Current Visit: Yes Status: Acute Assessment and Plan: Blood sugar well controlled. Plan Continue Levemir to 2.5 units HS and lispro sliding scale (9) Gastritis Current Visit: Yes Status: Acute Assessment and Plan: Continue PPI for 8 wks as per Gi recommendations. (10) Skin abnormality Current Visit: Yes Status: Acute Assessment and Plan: erythema has decreased, as well as the itching. Plan continue with prednisione 20mg PO daily and hydrocortisone 1% cream. continue Diphenphydramine for itching Q6HR PRN (11) Hx of esophageal varices Current Visit: Yes Status: Acute Assessment and Plan: S/P EGD which showed varices found in the lower third of esophagus. Gastritis. Plan outpatient f/u with GI DVT Prophylaxis: Anticoagulated with eliquis due to A.fib. - Summary of Assessment and Plan Summary of Assessment and Plan: Patient needs to remain in the hospital due to acute on chronic respiratory failure and pulm edema. - Time Spent with Patient Total time spent is greater than 50% in coordination of care (as documented) at patient's floor/unit and/or counseling patient: Greater than 35 minutes Plan of Care Discussed with: patient (the nurse.) Internal Medicine: Result - Labs CBC & Chem 7: 06/17/18 04:37 06/17/18 04:37 Labs: Short CBC 06/17/18 Range/Units 04:37 WBC 5.3 (4.3-11.1) K/mcL Hgb 14.7 (12.9-16.9) g/dL Hct 49.6 (37.5-50.1) % Plt Count 109 L (140-400) K/mcL Neutrophils # 4.3 (1.6-8.9) K/mcL BMP 06/17/18 04:37 Sodium 140 Potassium 4.2 Chloride 100 Carbon Dioxide 33 H BUN 17 Creatinine 0.69 L Glucose 156 H Calcium 9.9 - ABG Interpretation ABG results: ABG ABG pH 7.44 pH Units (7.32-7.45) 06/16/18 18:44 ABG pCO2 57 mmHg (35-45) H 06/16/18 18:44 ABG pO2 58 mmHg (85-104) L 06/16/18 18:44 ABG O2 Saturation 90 % (95-98) L 06/16/18 18:44 PT/INR, D-dimer PT 22.7 Seconds (9.4-12.1) H 06/14/18 10:49 - Impressions Impressions Chest X-Ray 06/17/18 04:00 IMPRESSION: Right pleural effusion with worsening pulmonary edema. D/ / Jewel Petersen MD / Jewel Petersen MD Interpreting Provider: Jewel Petersen MD Consult Discharge Plan - Plan Referrals: Chhaya Avila, [employer] [Primary Care Provider] - (2) Acute and chronic respiratory failure Qualifiers: Respiratory failure complication: hypoxia Qualified Code(s): J96.21 - Acute and chronic respiratory failure with hypoxia (3) Congestive heart failure Qualifiers: Heart failure type: systolic Heart failure chronicity: acute on chronic Qualified Code(s): I50.23 - Acute on chronic systolic (congestive) heart failure (4) COPD (chronic obstructive pulmonary disease) Qualifiers: Emphysema type: unspecified (5) Atrial fibrillation Qualifiers: Atrial fibrillation type: chronic Qualified Code(s): I48.2 - Chronic atrial fibrillation (6) Ascites Qualifiers: Ascites type: other type Qualified Code(s): R18.8 - Other ascites (7) Hepatic cirrhosis Qualifiers: Hepatic cirrhosis type: other cirrhosis Qualified Code(s): K74.69 - Other cirrhosis of liver (8) Diabetes Qualifiers: Diabetes mellitus complication status: with unspecified complications (9) Gastritis Qualifiers: Gastritis type: unspecified gastritis Chronicity: unspecified Gastritis bleeding: without bleeding Qualified Code(s): K29.70 - Gastritis, unspecified, without bleeding
--- NOTE | 2018-06-17 10:56 | Cardiology Progress Note ---
Date of Encounter: 06/17/18 Time of Encounter: 10:50 Assessment and Plan (1) Atrial fibrillation with rapid ventricular response Current Visit: Yes Status: Acute Per cardiology: Known PAF. Did receive IV digoxin load. On Toprol-XL 100 mg by mouth twice a day. Average HR previous 12 hours noted to be 108, a.fib. Systolic blood pressure in the 100s. On eliquis for anticoagulation. (2) Congestive heart failure Current Visit: Yes Status: Acute Per cardiology: Bi-ventricular heart failure. Admitted with increased shortness of breath. Known NICMP LVEF 40% 02/2018. LHC at [facility] without intervention. BNP 405. Also noted to have cirrhosis and ascites s/p paracentesis. Repeat TTE was performed with LVEF 40-45% global hypokinesis, mild concentric LVH, mild diastolic dysfunction, moderate RV hypokinesis, likely mildly dilated RV, RV volume overload, mild PH. Initial chest x-ray with no acute process, however repeat chest x-ray with interstitial edema. Recent chest x-ray with worsening pulmonary edema. On IV lasix 60 mg twice a day and aldactone. Currently net - 5609ml. On BB, rené inhibitor. Appears euvolemic on exam, however still requiring high flow O2. Continue strict i/os, fluid restriction, daily weights. Suspect volume overload multi-factoral. Kidney function remained stable. Qualifiers: Heart failure type: systolic Heart failure chronicity: acute on chronic Qualified Code(s): I50.23 - Acute on chronic systolic (congestive) heart failure Discussion w patient/family: The assessment and plan as outlined above was discussed with the patient and/or family members who expressed understanding and agreement. All questions were answered. Thank you for involving us in the care of your patient. Please call with any questions. Subjective Principal diagnosis: a.fib RVR, CHF Interval history: Patient reports overall shortness of breath has improved. He denies any chest pain or palpitations. Denies any awareness to any active bleeding or blood loss. Objective Vital Signs, Last 4 Hours Temp Pulse Resp BP Pulse Ox 06/17/18 07:28 97.5 F L 100 18 107/59 100 General: Conversant, No Apparent Distress HEENT: Atraumatic, Normocephaly, Mucus Membranes Moist Neck: No JVD, Normal carotid pulses Cardiac: Normal S1 and S2, No Murmur, Other (Irregularly irregular) Lungs: No Wheeze, Rales, Rhonchi, Other (seen on BiPap, diminshished BS throughout, reports utilizes home oxygen.) Neuro: Alert and responsive, No focal deficits noted Abdomen: Soft, Non-Tender, Other (obes, slightly distended) Skin: No rashes noted on visualized skin Musculoskeletal: No Chest Wall Tenderness Extremities: No Clubbing, No Cyanosis, No Edema, Normal Pulses Results 06/17/18 04:37 06/17/18 04:37 Lab Results Laboratory Tests 06/14/18 06/14/18 06/17/18 09:26 10:49 04:37 INR 2.0 Creatinine 0.69 L Est GFR (Non-Af Amer) > 60 Magnesium 1.8 AST 9 L ALT 5 L ITS Impressions Chest X-Ray 06/10/18 13:30 IMPRESSION: Cardiomegaly with interstitial edema. D/ / Gi Zhang MD / Gi Zhang MD Interpreting Provider: Gi Zhang MD Abdomen/Pelvis CT 06/10/18 13:38 IMPRESSION: 1. Small bilateral pleural effusions with lower lobe atelectasis. 2. Ascites. 3. Cirrhosis with splenomegaly. Portal hypertension. 4. Diverticulosis. D/ / 06/10/2018 16:02:00 Fernando Cook MD / [facility] Interpreting Provider: Fernando Cook MD Chest X-Ray 06/11/18 09:07 IMPRESSION: 1. Mild to moderate congestive heart failure. D/ / 06/11/2018 10:05:11 Krista Yuen MD / [facility] Interpreting Provider: Krista Yuen MD Echocardiogram 06/12/18 09:08 Impressions: LVEF 40-45%. Mild global left ventricular systolic dysfunction. Mild concentric left ventricular hypertrophy. Mild left ventricular diastolic dysfunction. Mildly dilated left atrium and right atrium. Moderate right ventricular hypokinesis. RV not well visualized, likely mildly dilated. Diastolic D shape suggests RV volume overload. No significant valvular dysfunction Mild pulmonary hypertension. Estimated RA pressure is 15 mmHg. Left Ventricular Wall Motion: Rest Echo Findings The apex, apical inferior, mid inferior, basal inferior, apical anterior, mid anterior, basal anterior, apical septal, mid inferior septal, basal inferior septal, apical lateral, mid anterior lateral, basal anterior lateral, mid anterior septal, mid inferior lateral, basal anterior septal and basal inferior lateral alvarez were hypokinetic. Findings: Study Quality * Technically adequate exam. ECG Findings * Atrial fibrillation. Left Ventricle * LVEF 45%. * Mildly dilated left ventricle. * Mild concentric left ventricular hypertrophy. * Mild global left ventricular systolic dysfunction. * Mild left ventricular diastolic dysfunction. * Definity echo contrast was used. Right Ventricle * Mildly dilated right ventricle. * Moderate right ventricular hypokinesis. * Not well visualized. Diastolic D shape suggests RV volume overload. Left Atrium * Mildly dilated left atrium. Right Atrium * Mildly dilated right atrium. Interatrial Septum * Interatrial septum not well evaluated. Aortic Valve * Trileaflet aortic valve with normal function. * No aortic regurgitation. * No aortic stenosis. Mitral Valve * Normal mitral valve structure and function. * Trace mitral regurgitation. Tricuspid Valve * Normal tricuspid valve structure and function. * Trace tricuspid regurgitation. * Estimated RVSP is 39 mmHg. * Estimated RA pressure is 15 mmHg. * Mild pulmonary hypertension. Pulmonic Valve * Mild pulmonic regurgitation. Aorta * Normally sized aortic root. Pericardium * The pericardium appears normal. IVC * The IVC is dilated. * < 50% respiratory change. Chest X-Ray 06/13/18 04:37 IMPRESSION: Worsening pulmonary edema. D/ / Jewel Petersen MD / Jewel Petersen MD Interpreting Provider: Jewel Petersen MD Abdomen/Pelvis/Transvag US 06/14/18 10:00 IMPRESSION: Small amount of abdominal ascites seen on limited abdominal ultrasound. D/ / Aubrey Castaneda / Aubrey Castaneda Interpreting Provider: Aubrey Castaneda Chest X-Ray 06/15/18 08:04 IMPRESSION: 1. Diminishing findings of congestive heart failure seen on previous study. 2. Small left pleural effusion is evident. 3. Calcific atherosclerosis aorta. 4. Cardiomegaly. D/ / Devante Graham / Devante Graham Interpreting Provider: Devante Graham Chest X-Ray 06/17/18 04:00 IMPRESSION: Right pleural effusion with worsening pulmonary edema. D/ / Jewel Petersen MD / Jewel Petersen MD Interpreting Provider: Jewel Petersen MD Intake & Output 06/14/18 06/15/18 06/16/18 06/17/18 23:59 23:59 23:59 23:59 Intake Total 1250 / 1250 480 / 480 320 / 320 360 / 360 Output Total 4450 / 4450 975 / 975 600 / 600 Balance -3200 / -3200 -495 / -495 320 / 320 -240 / -240 Weight 110.25 kg 110.3 kg 105.2 kg Active Medications Apixaban (Eliquis) 5 mg PO BID [facility] Stop: 12/10/18 21:01 Last Admin: 06/17/18 08:06 Dose: 5 mg Atorvastatin Calcium (Lipitor) 40 mg PO HS [facility] Stop: 12/10/18 21:01 Last Admin: 06/16/18 20:23 Dose: 40 mg Cholestyramine Resin (Cholestyramine) 4 gm PO HS [facility] Stop: 12/14/18 21:01 Last Admin: 06/16/18 20:23 Dose: 4 gm Dextrose/Water (Dextrose 50% (Syg)) 25 ml IVP AD PRN PRN Reason: Hypoglycemia Stop: 12/10/18 17:17 Diphenhydramine HCl (Benadryl) 25 mg PO Q8HR PRN PRN Reason: Itching Stop: 12/16/18 11:41 Last Admin: 06/16/18 20:24 Dose: 25 mg Furosemide (Lasix) 60 mg IVP BIDDIURETIC [facility] Stop: 12/17/18 08:01 Last Admin: 06/17/18 08:07 Dose: 60 mg Glucagon (Glucagen) 1 mg IM ONCE PRN PRN Reason: Hypoglycemia Stop: 12/10/18 17:17 Glucose (Gluctose) 15 gm PO ONCE PRN PRN Reason: Hypoglycemia Stop: 12/10/18 17:17 Glucose (Gluctose) 30 gm PO ONCE PRN PRN Reason: Hypoglycemia Stop: 12/10/18 17:17 Hydrocortisone (Cortaid) 1 appl TP BID PRN; Protocol PRN Reason: Itching Stop: 12/13/18 18:51 Last Admin: 06/16/18 20:27 Dose: 1 appl Dextrose (Dextrose 5%) 1,000 mls @ 100 mls/hr IVC .Q10H PRN PRN Reason: HYPOGLYCEMIA Stop: 12/10/18 17:17 Insulin Detemir (Levemir) 2.5 unit SQ HS [facility] Stop: 12/16/18 17:16 Last Admin: 06/16/18 23:20 Dose: Not Given Insulin Human Lispro (Humalog) 0 units SQ TIDAC [facility] PRN Reason: Protocol Stop: 12/11/18 07:31 Last Admin: 06/17/18 08:01 Dose: Not Given Levalbuterol HCl (Xopenex) 1.25 mg IH [id number] [facility] Stop: 12/11/18 10:31 Last Admin: 06/17/18 04:04 Dose: 1.25 mg Magnesium Oxide (Mag-Ox) 400 mg PO DAILY [facility] PRN Reason: Protocol Stop: 12/11/18 09:01 Last Admin: 06/17/18 08:07 Dose: 400 mg Metoprolol Succinate (Toprol Xl) 100 mg PO BID [facility] Stop: 12/16/18 09:01 Last Admin: 06/17/18 08:07 Dose: 100 mg Metoprolol Tartrate (Lopressor) 5 mg IVP Q6HR PRN PRN Reason: Heart Rate- High Stop: 12/14/18 11:14 Last Admin: 06/16/18 22:13 Dose: 5 mg Naloxone HCl (Narcan) 0.4 mg IVP Q2MIN PRN PRN Reason: SEE COMMENTS Stop: 12/10/18 17:08 Nicotine (Nicoderm) 21 mg TD DAILY [facility] PRN Reason: Protocol Stop: 12/11/18 09:01 Last Admin: 06/17/18 08:07 Dose: 21 mg Omeprazole (Prilosec) 20 mg PO DAILY [facility] PRN Reason: Protocol Stop: 12/11/18 09:01 Last Admin: 06/17/18 08:06 Dose: 20 mg Potassium Chloride (Potassium Chloride) 10 meq PO DAILY [facility] Stop: 12/11/18 09:01 Last Admin: 06/17/18 08:14 Dose: 10 meq Prednisone (Prednisone) 20 mg PO DAILY [facility] Stop: 12/16/18 11:46 Last Admin: 06/17/18 08:06 Dose: 20 mg Senna (Senna) 8.6 mg PO DAILY [facility] Stop: 12/11/18 09:01 Last Admin: 06/17/18 08:06 Dose: 8.6 mg Spironolactone (Aldactone) 50 mg PO DAILY [facility] Stop: 12/17/18 07:39 Last Admin: 06/17/18 08:07 Dose: 50 mg - Imaging and Cardiology Echo: report reviewed - EKG Interpretation EKG results cardiology: other Consult Discharge Plan - Plan Referrals: Chhaya Avila, C[employer] STORAGE SUPERVISOR [Primary Care Provider] -
[2018-06-17] MEDS ORDERED: Furosemide 20 MG/2 ML VIAL IVP ONE (12:13)
[2018-06-17] MEDS: Furosemide 40 MG/4 ML VIAL IVP SCH (16:52)
[2018-06-17] MEDS: Cholestyramine 4 GM POWD.PACK PO SCH (21:46)
[2018-06-18] MEDS: Levalbuterol Neb 1.25 MG/3 ML IH SCH ×4 (03:55→21:14)
[2018-06-18 04:19] LABS: ABG Base Excess 11 mEq/L (-2 to 3); ABG HCO3 38 mEq/L (21-27); ABG Oxygen Saturation 89 % (95-98); ABG PCO2 55 mmHg (35-45); ABG PH 7.45 pH Units (7.32-7.45); ABG PO2 56 mmHg (85-104); ABG TCO2 40 mEq/L (20-26)
[2018-06-18 05:21] LABS: BUN/Creatinine Ratio 26 (6-26); Blood Urea Nitrogen 21 mg/dL (8-23); Calcium 10.4 mg/dL (8.6-10.3); Carbon Dioxide 37 mEq/L (23-29); Chloride 96 mEq/L (98-107); Glucose 127 mg/dL (70-105); Osmolality,Calculated 299 (280-300); Potassium 4.2 mEq/L (3.5-5.1); Sodium 142 mEq/L (136-145); eGFR For Non-African Americans > 60 (> 60)
--- NOTE | 2018-06-18 08:32 | Cardiology Progress Note ---
Date of Encounter: 06/18/18 Time of Encounter: 08:30 Assessment and Plan (1) Atrial fibrillation with rapid ventricular response Current Visit: Yes Status: Acute Per cardiology: Known PAF. Did receive IV digoxin load. On Toprol-XL 100 mg by mouth twice a day. Average HR previous 12 hours noted to be 105, a.fib. Systolic blood pressure in the 100s. We will titrate Toprol-XL to 125mg PO BID. Will decrease aldactone to 25mg PO daily. Continue titrate beta callum as needed. With respiratory status heart rates in the 100s acceptable target. On eliquis for anticoagulation. Denies any bleeding or blood loss. (2) Congestive heart failure Current Visit: Yes Status: Acute Per cardiology: Bi-ventricular heart failure. Admitted with increased shortness of breath. Known NICMP LVEF 40% 02/2018. C at [facility] without intervention. BNP 405. Also noted to have cirrhosis and ascites s/p paracentesis. Repeat TTE was performed with LVEF 40-45% global hypokinesis, mild concentric LVH, mild diastolic dysfunction, moderate RV hypokinesis, likely mildly dilated RV, RV volume overload, mild PH. Initial chest x-ray with no acute process, however repeat chest x-ray with interstitial edema. Recent chest x-ray with worsening pulmonary edema. On IV lasix 80 mg twice a day and aldactone. Currently net - 7658ml. On BB, rené inhibitor. Appears euvolemic on exam, now on nasal Oxygen 3 L. Continue strict i/os, fluid restriction, daily weights. Suspect volume overload multi-factoral. Kidney function remained stable. Discussed and reviewed with Dr. Sanchez, cardiology will sign off, reconsult as needed, follow-up arranged. Was on lasix 20mg HUMAIRA daily at home, recommend lasix 40mg PO BID and check BMP in 1 week. Qualifiers: Heart failure type: systolic Heart failure chronicity: acute on chronic Qualified Code(s): I50.23 - Acute on chronic systolic (congestive) heart failure Discussion w patient/family: The assessment and plan as outlined above was discussed with the patient who expressed understanding and agreement. All questions were answered. Thank you for involving us in the care of your patient. Please call with any questions. Subjective Principal diagnosis: a.fib RVR, CHF Interval history: Patient reports overall shortness of breath has improved. He denies any chest pain or palpitations. Denies any awareness to any active bleeding or blood loss. Objective Vital Signs, Last 4 Hours Temp Pulse Resp BP Pulse Ox 06/18/18 07:37 97.9 F 110 16 113/92 96 Selected Entries 06/18/18 04:12 06/18/18 07:37 O2 Sat by Pulse Oximetry 96 Oxygen Flow Rate (LPM) 3 Oxygen Delivery Method Nasal Cannula General: Conversant, No Apparent Distress HEENT: Atraumatic, Normocephaly, Mucus Membranes Moist Neck: No JVD, Normal carotid pulses Cardiac: Normal S1 and S2, No Murmur, Other (Irregularly irregular) Lungs: Normal Breath Sounds, No Wheeze, Rales, Rhonchi Neuro: Alert and responsive, No focal deficits noted Abdomen: Soft, Non-Tender Skin: No rashes noted on visualized skin Musculoskeletal: No Chest Wall Tenderness Extremities: No Clubbing, No Cyanosis, No Edema, Normal Pulses Results 06/17/18 04:37 06/18/18 04:15 Lab Results Laboratory Tests 06/18/18 04:15 Creatinine 0.82 Est GFR (Non-Af Amer) > 60 Active Medications Apixaban (Eliquis) 5 mg PO BID [facility] Stop: 12/10/18 21:01 Last Admin: 06/17/18 21:46 Dose: 5 mg Atorvastatin Calcium (Lipitor) 40 mg PO HS [facility] Stop: 12/10/18 21:01 Last Admin: 06/17/18 21:47 Dose: 40 mg Cholestyramine Resin (Cholestyramine) 4 gm PO HS [facility] Stop: 12/14/18 21:01 Last Admin: 06/17/18 21:46 Dose: 4 gm Dextrose/Water (Dextrose 50% (Syg)) 25 ml IVP AD PRN PRN Reason: Hypoglycemia Stop: 12/10/18 17:17 Diphenhydramine HCl (Benadryl) 25 mg PO Q8HR PRN PRN Reason: Itching Stop: 12/16/18 11:41 Last Admin: 06/17/18 18:15 Dose: 25 mg Furosemide (Lasix) 80 mg IVP BIDDIURETIC [facility] Stop: 12/17/18 17:01 Last Admin: 06/17/18 16:52 Dose: 80 mg Glucagon (Glucagen) 1 mg IM ONCE PRN PRN Reason: Hypoglycemia Stop: 12/10/18 17:17 Glucose (Gluctose) 15 gm PO ONCE PRN PRN Reason: Hypoglycemia Stop: 12/10/18 17:17 Glucose (Gluctose) 30 gm PO ONCE PRN PRN Reason: Hypoglycemia Stop: 12/10/18 17:17 Hydrocortisone (Cortaid) 1 appl TP BID PRN; Protocol PRN Reason: Itching Stop: 12/13/18 18:51 Last Admin: 06/17/18 18:14 Dose: 1 appl Dextrose (Dextrose 5%) 1,000 mls @ 100 mls/hr IVC .Q10H PRN PRN Reason: HYPOGLYCEMIA Stop: 12/10/18 17:17 Insulin Human Lispro (Humalog) 0 units SQ TIDAC [facility] PRN Reason: Protocol Stop: 12/11/18 07:31 Last Admin: 06/17/18 16:50 Dose: Not Given Levalbuterol HCl (Xopenex) 1.25 mg IH [id number] [facility] Stop: 12/11/18 10:31 Last Admin: 06/18/18 03:55 Dose: 1.25 mg Magnesium Oxide (Mag-Ox) 400 mg PO DAILY [facility] PRN Reason: Protocol Stop: 12/11/18 09:01 Last Admin: 06/17/18 08:07 Dose: 400 mg Metoprolol Succinate (Toprol Xl) 100 mg PO BID [facility] Stop: 12/16/18 09:01 Last Admin: 06/17/18 21:46 Dose: 100 mg Metoprolol Tartrate (Lopressor) 5 mg IVP Q6HR PRN PRN Reason: Heart Rate- High Stop: 12/14/18 11:14 Last Admin: 06/16/18 22:13 Dose: 5 mg Naloxone HCl (Narcan) 0.4 mg IVP Q2MIN PRN PRN Reason: SEE COMMENTS Stop: 12/10/18 17:08 Nicotine (Nicoderm) 21 mg TD DAILY [facility] PRN Reason: Protocol Stop: 12/11/18 09:01 Last Admin: 06/17/18 08:07 Dose: 21 mg Omeprazole (Prilosec) 20 mg PO DAILY [facility] PRN Reason: Protocol Stop: 12/11/18 09:01 Last Admin: 06/17/18 08:06 Dose: 20 mg Potassium Chloride (Potassium Chloride) 10 meq PO DAILY [facility] Stop: 12/11/18 09:01 Last Admin: 06/17/18 08:14 Dose: 10 meq Prednisone (Prednisone) 20 mg PO DAILY [facility] Stop: 12/16/18 11:46 Last Admin: 06/17/18 08:06 Dose: 20 mg Senna (Senna) 8.6 mg PO DAILY [facility] Stop: 12/11/18 09:01 Last Admin: 06/17/18 08:06 Dose: 8.6 mg Spironolactone (Aldactone) 50 mg PO DAILY [facility] Stop: 12/17/18 07:39 Last Admin: 06/17/18 08:07 Dose: 50 mg - EKG Interpretation EKG results cardiology: other (Telemetry reviewed with average heart rate past 12 hours 105, currently A. fib in the 100s) Consult Discharge Plan - Plan Referrals: Chhaya Avila, L[employer]ER PLANT ATTENDANT [Primary Care Provider] -
[2018-06-18] MEDS: Insulin LISPRO 300 UNITS/3 ML VIAL SQ SCH ×3 (11:20→18:02)
[2018-06-18] MEDS: Nicotine 21 MG PATCH.TD24 TD SCH (11:26)
[2018-06-18] MEDS: Furosemide 40 MG/4 ML VIAL IVP SCH ×2 (11:29→18:02)
[2018-06-18] MEDS: Apixaban 5 MG TABLET PO SCH ×2 (11:31→21:01)
[2018-06-18] MEDS: Sennosides 8.6 MG TABLET PO SCH (11:31)
[2018-06-18] MEDS: Magnesium Oxide 400 MG TABLET PO SCH (11:31)
[2018-06-18] MEDS: predniSONE 20 MG TABLET PO SCH (11:32)
[2018-06-18] MEDS: Metoprolol XL (24 HR) Succ 50 MG TAB.ER.24H PO SCH ×2 (11:32→21:01)
--- NOTE | 2018-06-18 11:38 | Internal Med Progress Note ---
Hospitalist Progress Note - Encounter Date of Encounter: 06/18/18 Time of Encounter: 11:36 - Subjective Interval History: Seen at bedside, reports that his breathing has significantly improved. Denies chest pain, shortness of breath, nausea or vomiting. - Exam Vitals: Temp Pulse Resp BP Pulse Ox 97.9 F 116 20 110/62 90 06/18/18 11:19 06/18/18 11:19 06/18/18 11:19 06/18/18 11:19 06/18/18 11:19 Exam: General: Alert and oriented 3. In no acute distress. Skin: Diffused erythematous rash most significant in the abdominal and lower extremities area. Almost completely cleared. Cardiovascular: Irregularly irregular, Normal S1 & S2, no rubs, murmurs or gallops. JVD about 6cm. Lungs: Clear to auscultation bilaterally, good air entry bilaterally. No wheezings, crackles or rales. Abdomen: Obese, distended, Soft, non-tender, no rigidity. Extremities: No edema in the lower extremity bilaterally. Neurological: CN II-XII intact. Rest of the physical exam is non contributory - Assessment and Plan (1) Congestive heart failure Current Visit: Yes Status: Acute Assessment and Plan: Chest is clear to auscultation bilaterally. In no acute respiratory distress as the previous couple of days. Plan We will continue furosemide 80 mg IV twice a day for at least 24 more hours. Continue spironolactone 25 mg by mouth daily. On metoprolol which has been increased by cardiology to 125 mg by mouth twice a day. Continue strict intake and output Daily weight Water restriction to 1.5 L a day 2 g sodium diet (2) Acute and chronic respiratory failure Current Visit: Yes Status: Acute Assessment and Plan: Patient continues to be on 3 L of oxygen by nasal cannula. Which is close to his baseline Plan Continue oxygen by nasal cannula, titrate for O2 sat duration more than 92%. (3) COPD (chronic obstructive pulmonary disease) Current Visit: Yes Status: Acute Assessment and Plan: Due to chest auscultation. Plan Nebs every 6 hours as scheduled (4) Atrial fibrillation Current Visit: Yes Status: Acute Assessment and Plan: Rate controlled. Metoprolol increased to 125 mg twice a day, continue apixaban for anti-coagulation. (5) Ascites Current Visit: Yes Status: Acute Assessment and Plan: Status post paracentesis. Ascites multifactorial, cirrhosis versus, cardiac in origin Plan And spironolactone 25 mg by mouth daily 2 g sodium diet Strict intake and output Outpatient GI follow-up. (6) Hepatic cirrhosis Current Visit: Yes Status: Acute Assessment and Plan: Associated with abdominal ascites. Continue diuresis with furosemide and spironolactone. (7) Diabetes Current Visit: Yes Status: Acute Assessment and Plan: Blood sugar well controlled. Continue lispro sliding scale. (8) Gastritis Current Visit: Yes Status: Acute Assessment and Plan: Patient needs to be on omeprazole for 8 wks as per Gi recommendations. (9) Skin abnormality Current Visit: Yes Status: Acute Assessment and Plan: Significant improvement in the body erythema, and teaching. Continue a steroid cream and prednisone 20 mg by mouth daily. Diphenhydramine 25 mg by mouth every 8 hours when necessary for itching (10) Hx of esophageal varices Current Visit: Yes Status: Acute Assessment and Plan: S/P EGD which showed varices found in the lower third of esophagus. Plan outpatient f/u with GI (11) Pulmonary edema with congestive heart failure Current Visit: Yes Status: Resolved Assessment and Plan: Chest clear to auscultation. Oxygen demand has decreased to 3 L, which is close to his baseline DVT Prophylaxis: Patient on oral anticoagulant, due to atrial fibrillation. - Summary of Assessment and Plan Summary of Assessment and Plan: patient needs to remain in the hospital for 24 more hours for IV diuresis. Potential discharge tomorrow morning - Time Spent with Patient Total time spent is greater than 50% in coordination of care (as documented) at patient's floor/unit and/or counseling patient: Greater than 35 minutes Plan of Care Discussed with: patient (and the nurse.) Internal Medicine: Result - Labs CBC & Chem 7: 06/17/18 04:37 06/18/18 04:15 Labs: BMP 06/18/18 04:15 Sodium 142 Potassium 4.2 Chloride 96 L Carbon Dioxide 37 H BUN 21 Creatinine 0.82 Glucose 127 H Calcium 10.4 H - ABG Interpretation ABG results: ABG ABG pH 7.45 pH Units (7.32-7.45) 06/18/18 04:15 ABG pCO2 55 mmHg (35-45) H 06/18/18 04:15 ABG pO2 56 mmHg (85-104) L 06/18/18 04:15 ABG O2 Saturation 89 % (95-98) L 06/18/18 04:15 PT/INR, D-dimer PT 22.7 Seconds (9.4-12.1) H 06/14/18 10:49 Consult Discharge Plan - Plan Referrals: Chhaya Avila, [employer]CHIT[employer]INING [Primary Care Provider] - (1) Congestive heart failure Qualifiers: Heart failure type: systolic Heart failure chronicity: acute on chronic Qualified Code(s): I50.23 - Acute on chronic systolic (congestive) heart failure (2) Acute and chronic respiratory failure Qualifiers: Respiratory failure complication: hypoxia Qualified Code(s): J96.21 - Acute and chronic respiratory failure with hypoxia (3) COPD (chronic obstructive pulmonary disease) Qualifiers: Emphysema type: unspecified (4) Atrial fibrillation Qualifiers: Atrial fibrillation type: chronic Qualified Code(s): I48.2 - Chronic atrial fibrillation (5) Ascites Qualifiers: Ascites type: other type Qualified Code(s): R18.8 - Other ascites (6) Hepatic cirrhosis Qualifiers: Hepatic cirrhosis type: other cirrhosis Qualified Code(s): K74.69 - Other cirrhosis of liver (7) Diabetes Qualifiers: Diabetes mellitus complication status: with unspecified complications (8) Gastritis Qualifiers: Gastritis type: unspecified gastritis Chronicity: unspecified Gastritis bleeding: without bleeding Qualified Code(s): K29.70 - Gastritis, unspecified, without bleeding
[2018-06-18] MEDS: Cholestyramine 4 GM POWD.PACK PO SCH (21:01)
[2018-06-19] MEDS: Levalbuterol Neb 1.25 MG/3 ML IH SCH ×2 (03:48→09:58)
[2018-06-19 05:19] LABS: BUN/Creatinine Ratio 30 (6-26); Blood Urea Nitrogen 27 mg/dL (8-23); Calcium 10.1 mg/dL (8.6-10.3); Carbon Dioxide 36 mEq/L (23-29); Chloride 96 mEq/L (98-107); Glucose 124 mg/dL (70-105); Osmolality,Calculated 295 (280-300); Sodium 139 mEq/L (136-145); eGFR For Non-African Americans > 60 (> 60)
[2018-06-19 07:31] VITALS: BP 113/72
--- NOTE | 2018-06-19 09:10 | Discharge Summary ---
- NOTES TO OUTPATIENT PROVIDER Notes to Outpatient Provider: Follow-up with cardiology within 1 week of being discharged. Follow-up with your primary care within a week Date of Encounter: 06/19/18 Time of Encounter: 09:04 - Discharge Diagnosis (1) Congestive heart failure Priority: Primary Status: Chronic Qualifiers: Heart failure type: systolic Heart failure chronicity: acute on chronic Qualified Code(s): I50.23 - Acute on chronic systolic (congestive) heart failure (2) Acute and chronic respiratory failure Priority: Secondary Status: Chronic Qualifiers: Respiratory failure complication: hypoxia Qualified Code(s): J96.21 - Acute and chronic respiratory failure with hypoxia (3) COPD (chronic obstructive pulmonary disease) Priority: Secondary Status: Chronic Qualifiers: Emphysema type: unspecified Qualified Code(s): J43.9 - Emphysema, unspecified (4) Atrial fibrillation Priority: Secondary Status: Chronic Qualifiers: Atrial fibrillation type: chronic Qualified Code(s): I48.2 - Chronic atrial fibrillation (5) Ascites Priority: Secondary Status: Chronic Qualifiers: Ascites type: other type Qualified Code(s): R18.8 - Other ascites (6) Hepatic cirrhosis Priority: Secondary Status: Chronic Qualifiers: Hepatic cirrhosis type: other cirrhosis Qualified Code(s): K74.69 - Other cirrhosis of liver (7) Diabetes Priority: Secondary Status: Chronic Qualifiers: Diabetes mellitus complication status: with unspecified complications Qualified Code(s): E08.8 - Diabetes mellitus due to underlying condition with unspecified complications (8) Gastritis Priority: Secondary Status: Chronic Qualifiers: Gastritis type: unspecified gastritis Chronicity: unspecified Gastritis bleeding: without bleeding Qualified Code(s): K29.70 - Gastritis, unspecified , without bleeding (9) Skin abnormality Priority: Secondary Status: Acute (10) Hx of esophageal varices Priority: Secondary Status: Chronic (11) Pulmonary edema with congestive heart failure Priority: Secondary Status: Resolved Hospital course: Mr. Orozco is a 62 year old male past medical history significant for nonischemic cardiomyopathy/AICD, chronic kidney disease stage III, O2 dependent COPD (2 L), hypertension, hyperlipidemia and diabetes who presents to the ER on 06/10/18 due to abdominal swelling and shortness of breath. I n the ER, Abdominal /pelvis CT done showed ascites with cirrhosis and splenomegaly in addition to portal hypertension. Patient underwent paracentesis were 5 L of ascites fluid is what removal. After removal of the ascites fluid patient seemed to require high flow oxygen and BiPAP, for which he has Lasix dosage was adjusted. Patient diuresed with a total of a liters of fluid removed. Patient respiratory status improved, no respiratory distress. And patient is hemodynamically stable to be discharged home. - Time Spent with Patient Total time spent providing and/or coordinating discharge services: Greater than 30 minutes - Discharge Medications Prescriptions: DiphenhydraMINE [Benadryl] 25 mg PO Q8HR PRN 30 Days #90 capsule PRN Reason: Itching Furosemide [Lasix] 60 mg PO BID 30 Days #60 tablet Hydrocortisone 1% CREAM [Cortaid] 1 appl TP BID PRN 30 Days #1 bottle PRN Reason: Itching Metoprolol XL (24 HR) Succ [Toprol Xl] 125 mg PO BID 30 Days #60 tab.er.24h predniSONE [PredniSONE] 20 mg PO DAILY 3 Days #3 tablet Spironolactone [Aldactone] 25 mg PO DAILY 30 Days #30 tablet Home Medications: Apixaban [Eliquis] 5 mg PO BID 06/10/18 [History] Aspirin [Lo-Dose Aspirin EC] 81 mg PO DAILY 06/10/18 [History] Atorvastatin [Lipitor] 40 mg PO HS 06/10/18 [History] Lisinopril [Zestril] 5 mg PO DAILY 06/10/18 [History] Magnesium Oxide [Mag-Ox] 400 mg PO DAILY 06/10/18 [History] Omeprazole [PriLOSEC] 20 mg PO DAILY 06/10/18 [History] Potassium Chloride [Klor-Con 10] 10 meq PO DAILY 06/10/18 [History] Sennosides [Senna] 8.6 mg PO DAILY 06/10/18 [History] metFORMIN [Glucophage] 500 mg PO BIDWM 06/10/18 [History] DiphenhydraMINE [Benadryl] 25 mg PO Q8HR PRN 30 Days #90 capsule 06/19/18 [Rx] Furosemide [Lasix] 60 mg PO BID 30 Days #60 tablet 06/19/18 [Rx] Hydrocortisone 1% CREAM [Cortaid] 1 appl TP BID PRN 30 Days #1 bottle 06/19/18 [ Rx] Metoprolol XL (24 HR) Succ [Toprol Xl] 125 mg PO BID 30 Days #60 tab.er.24h [Rx] Spironolactone [Aldactone] 25 mg PO DAILY 30 Days #30 tablet 06/19/18 [Rx] predniSONE [PredniSONE] 20 mg PO DAILY 3 Days #3 tablet 06/19/18 [Rx] Allergies/Adverse Reactions: 3 Allergy/AdvReac Type Severity Reaction Status Date / Time No Known Allergies Allergy Verified 06/10/18 15:40 Date of admission: 06/10/18 18:17 Primary care physician: Chhaya Avila CNP - Constitutional Vitals: Temp Pulse Resp BP Pulse Ox 98.3 F 95 20 113/72 91 06/19/18 07:26 06/19/18 07:26 06/19/18 07:26 06/19/18 07:26 06/19/18 07:26 General appearance: Present: A&O X 3, no acute distress Exam: General: Alert and oriented 3. In no acute distress. Skin: Diffused erythematous rash most significant in the abdominal and lower extremities area. clearing. Cardiovascular: Irregularly irregular, Normal S1 & S2, no rubs, murmurs or gallops. JVD about 6cm. Lungs: Clear to auscultation bilaterally, good air entry bilaterally. No wheezings, crackles or rales. Abdomen: Obese, distended, Soft, non-tender, no rigidity. Extremities: No edema in the lower extremity bilaterally. Neurological: CN II-XII intact. Rest of the physical exam is non contributory - Patient Status Disposition: Home Health Service Condition: Good Functional capacity at discharge: independent ambulation Overall status at discharge: patient is back to baseline - Discharge Instructions Follow Up With: Chhaya Avila CNP [Primary Care Provider] - - Diet and Activity Activity: resume usual activities as tolerated Diet: diabetic diet, low salt diet
--- NOTE | 2018-06-19 09:16 | Physician Discharge Referral ---
Home Health/Hosp Referral Info Transfer to: Home Health - Diagnosis (1) Congestive heart failure Priority: Primary Status: Chronic (2) Acute and chronic respiratory failure Priority: Secondary Status: Chronic (3) COPD (chronic obstructive pulmonary disease) Priority: Secondary Status: Chronic (4) Atrial fibrillation Priority: Secondary Status: Chronic (5) Ascites Priority: Secondary Status: Chronic (6) Hepatic cirrhosis Priority: Secondary Status: Chronic (7) Diabetes Priority: Secondary Status: Chronic (8) Gastritis Priority: Secondary Status: Chronic (9) Skin abnormality Priority: Secondary Status: Acute (10) Hx of esophageal varices Priority: Secondary Status: Chronic (11) Pulmonary edema with congestive heart failure Priority: Secondary Status: Resolved - Respiratory Orders Oxygen / L per min (3 litters) Smoking Cessation: Smoking cessation has been advised. For more information, call the [employer] Tobacco Quit Line at 8-969-KLAP-NOW. - Diet/Nutrition Diet/Nutrition Orders: Regular - Activity Activity Orders: Ambulate - Services Needed Following services are medically necessary services: Home Health Aide - Transfer Medications Prescriptions: DiphenhydraMINE [Benadryl] 25 mg PO Q8HR PRN 30 Days #90 capsule PRN Reason: Itching Furosemide [Lasix] 60 mg PO BID 30 Days #60 tablet Hydrocortisone 1% CREAM [Cortaid] 1 appl TP BID PRN 30 Days #1 bottle PRN Reason: Itching Metoprolol XL (24 HR) Succ [Toprol Xl] 125 mg PO BID 30 Days #60 tab.er.24h predniSONE [PredniSONE] 20 mg PO DAILY 3 Days #3 tablet Spironolactone [Aldactone] 25 mg PO DAILY 30 Days #30 tablet Home Medications: Apixaban [Eliquis] 5 mg PO BID 06/10/18 [History] Aspirin [Lo-Dose Aspirin EC] 81 mg PO DAILY 06/10/18 [History] Atorvastatin [Lipitor] 40 mg PO HS 06/10/18 [History] Lisinopril [Zestril] 5 mg PO DAILY 06/10/18 [History] Magnesium Oxide [Mag-Ox] 400 mg PO DAILY 06/10/18 [History] Omeprazole [PriLOSEC] 20 mg PO DAILY 06/10/18 [History] Potassium Chloride [Klor-Con 10] 10 meq PO DAILY 06/10/18 [History] Sennosides [Senna] 8.6 mg PO DAILY 06/10/18 [History] metFORMIN [Glucophage] 500 mg PO BIDWM 06/10/18 [History] DiphenhydraMINE [Benadryl] 25 mg PO Q8HR PRN 30 Days #90 capsule 06/19/18 [Rx] Furosemide [Lasix] 60 mg PO BID 30 Days #60 tablet 06/19/18 [Rx] Hydrocortisone 1% CREAM [Cortaid] 1 appl TP BID PRN 30 Days #1 bottle 06/19/18 [ Rx] Metoprolol XL (24 HR) Succ [Toprol Xl] 125 mg PO BID 30 Days #60 tab.er.24h [Rx] Spironolactone [Aldactone] 25 mg PO DAILY 30 Days #30 tablet 06/19/18 [Rx] predniSONE [PredniSONE] 20 mg PO DAILY 3 Days #3 tablet 06/19/18 [Rx] Allergies/Adverse Reactions: 3 Allergy/AdvReac Type Severity Reaction Status Date / Time No Known Allergies Allergy Verified 06/10/18 15:40 Certification: Further, I certify that my clinical findings support that this patient is homebound (i.e. absences from home require considerable and taxing effort and are for medical reasons or tenriism services or infrequently or short duration when for other reasons) because: Homebound Reason: Patient requires assistance of a person or device to safely leave home Attestation: My signature below is to certify that this patient is under my care and that I, or nurse practitioner, or a physician's senior court office assistant working with me, has a face-to -face encounter with this patient.
[2018-06-19] MEDS: Insulin LISPRO 300 UNITS/3 ML VIAL SQ SCH (09:39)
[2018-06-19] MEDS: Nicotine 21 MG PATCH.TD24 TD SCH (09:42)
[2018-06-19] MEDS: Apixaban 5 MG TABLET PO SCH (09:43)
[2018-06-19] MEDS: Furosemide 40 MG/4 ML VIAL IVP SCH (09:43)
[2018-06-19] MEDS: Metoprolol XL (24 HR) Succ 50 MG TAB.ER.24H PO SCH (09:45)
[2018-06-19] MEDS: Sennosides 8.6 MG TABLET PO SCH (09:45)
[2018-06-19] MEDS: predniSONE 20 MG TABLET PO SCH (09:45)
[2018-06-19] MEDS: Magnesium Oxide 400 MG TABLET PO SCH (09:45)
== END 2018-06-19 12:22 | disposition home health service (06) | DRG 291 ==
LOC: 2NENU 13:03 → EMEROOARM 13:03 → 2NENU 17:45 → SUATTDRO 18:17
PROVIDERS: ADMIT Student in an Organized Health Care Education/Training Program; ATTEND Internal Medicine
PROC: ENDOEBX (2018-06-15 14:00)